=== PATIENT | female | born 1960 | race Caucasian/White ===

== ENCOUNTER 2018-06-12 00:59 | Outpatient (CLI) | payer MEDICAID, SELFPAY ==
--- NOTE | 2018-06-17 08:36 | HOLTER_ITS ---
HOLTER MONITOR DATE OF DICTATION June 17, 2018 at 8:23 a.m. STUDY INDICATION Palpitations. REQUESTING PROVIDER Sherlyn Pyle FINDINGS The patient was monitored for two days and 43 minutes. The baseline rhythm was sinus rhythm. The average heart rate was 78 beats per minute. Range 59 to 109 beats per minute. There was no significant ectopy. 2 PVCs and 6 PACs. There were no ventricular or supraventricular tachycardias. There were no pauses greater than 3 seconds. There was no higher-degree heart block. There were no symptoms reported. FINAL INTERPRETATION Normal study. Berny Gunderson M.D. REINA/ricarda T-06/17/2018
== END 2018-06-12 01:00 ==
PROVIDERS: PCP Nurse Practitioner Family; Visit Provider Nurse Practitioner Family
DX: R00.2 Palpitations (principal); R42 Dizziness and giddiness; I95.1 Orthostatic hypotension; I49.1 Atrial premature depolarization; I49.3 Ventricular premature depolarization
CPT/HCPCS: 93225

== ENCOUNTER 2018-06-15 15:33 | Outpatient (REF) | payer MEDICAID, SELFPAY | END 2018-06-15 15:34 | LOC: RT 15:33 | PROVIDERS: PCP Nurse Practitioner Family; Visit Provider Nurse Practitioner Family | DX: R00.2 Palpitations (principal); R42 Dizziness and giddiness; I95.1 Orthostatic hypotension; I49.1 Atrial premature depolarization; I49.3 Ventricular premature depolarization | CPT/HCPCS: 93226 ==

== ENCOUNTER 2018-06-27 15:45 | Emergency (ER) | payer MEDICAID, SELFPAY ==
[2018-06-27 15:55] VITALS: BP 139/77; PULSE 87; RESP 16; TEMP 37.2; O2SAT 98
--- NOTE | 2018-06-27 16:18 | DI.REPORT_ITS ---
SYMPTOM/DIAGNOSIS: KNEE PAIN RIGHT KNEE: There is a fracture through the medial tibial plateau near the tibial spines. There is slight separation at the articular surface. Additional lucencies in the lateral tibial plateau. There is some depression of the lateral tibial plateau. There is a large lipo hemarthrosis. Distal femur and patella appear intact. IMPRESSION: Fractures of both lateral and medial tibial plateaus with probable involvement of the tibial spines.
--- NOTE | 2018-06-27 16:46 | DI.VRAD_ITS ---
EXAM: XR Right Knee, 3 views CLINICAL HISTORY: 58 years old, female; Pain; Knee; Right; Patient HX: Per pt: Twisted knee and hit against bed TECHNIQUE: Three views of the right knee. COMPARISON: No relevant prior studies available. FINDINGS: Bones/joints: The bones are osteopenic. There are minimal degenerative changes within the tibiofemoral and patellofemoral joints. There is a large knee joint effusion with a lipohemarthrosis. There is an intra-articular fracture of the medial and lateral tibial plateau. The lateral tibial plateau fracture is minimally depressed. No dislocation. Soft tissues: There is swelling of the medial knee soft tissues. IMPRESSION: 1. Nondisplaced fracture of the medial and lateral tibial plateau with minimal depression of the lateral tibial plateau. 2. Large lipomohemarthrosis. Dictated and Authenticated by: Carlos Edgar MD. Ordering:DAVIAN BRAVO MD
--- NOTE | 2018-06-27 17:28 | ED.GENADUL ---
Disposition Clinical Impression: Fracture of right tibial plateau Disposition: HOME Condition: Stable Instructions: Leg Fracture (ED) Additional Instructions: You need to remain nonweightbearing and use crutches at all times. If you begin having significant pain, color change, numbness, or significant swelling he should return immediately to the emergency department for reevaluation. Otherwise call the orthopedist office first thing on Friday for arrangement of follow-up appointment. Prescriptions: OxyCODONE/APAP 5 mg/325 mg [Percocet 5 mg/325 mg] 0 each PO Q6H PRN #8 tab PRN Reason: Pain Referrals: Darnell Chand MD [ [facility] STAFF PHYSICIAN] - 06/29/18 (Call the office on Friday for arrangement of follow-up appointment.) Medical Decision Making - Radiology Data Radiology results: report reviewed, image reviewed - Medical Decision Making Patient presenting to the emergency department for complaint of right knee pain. Patient is exquisitely tender to any palpation of the knee specifically of the tibial plateau. There is significant amount of swelling and effusion also noted to the knee but no severe ecchymosis is appreciated. Concern for fracture versus sprain so radiological imaging was ordered. Pending these results patient ordered diclofenac. After review of imaging showing a nondisplaced tibial plateau fracture did consult with Dr. Chand on-call orthopedist in regards to patient's care and outpatient follow-up. He agreed with recommendation to keep patient nonweightbearing, prescribed pain medication, and have her follow-up on Friday with her office. Patient was placed in a knee immobilizer and crutches and prescribed Percocet. I personally reviewed the [place] drug database on this patient and find no suspicion of opioid abuse. Informed patient of risks versus benefits of narcotic pain control along with non-opiate pain relievers that she may utilize while on prescribed medications. Patient consented to receiving opiate pain meds. After discussion of diagnosis and plan of care with patient patient agreed and stated no further needs, questions, or concerns at this time. History of Present Illness - General Chief complaint: Orthopedic Stated complaint: UNKNOWN Time Seen by Provider: 06/27/18 15:55 Source: patient, RN notes reviewed Mode of arrival: wheelchair Limitations: no limitations - History of Present Illness Initial comments: Patient reports approximately 4 days ago she was walking in her bedroom and excellently struck her knee against the metal bed rail and twisted her right knee. Since then she has been unable to bear weight on the extremity and has had significant amount of pain and discomfort with any movement of the leg. Patient denies any other injury or trauma and states initially the she thought she may have sprained a ligament but due to it not getting better is presenting to the emergency department. Onset/Timin -: days(s) Location: right, lower extremity Severity scale (1-10): 9 Quality: sharp Consistency: constant Improves with: none Worsens with: movement Associated Symptoms: denies other symptoms Treatments Prior to Arrival: NSAID - Related Data Insulin Glargine,Hum.rec.anlog [Lantus Solostar] 30 units SC HS 08/15/16 Insulin Lispro [Humalog] 4 units PO PRN PRN 08/15/16 Gabapentin 1 cap PO BID 06/27/18 OxyCODONE/APAP 5 mg/325 mg [Percocet 5 mg/325 mg] 0 each PO Q6H PRN #8 tab 06/27/18 Allergies Allergy/AdvReac Type Severity Reaction Status Date / Time No Known Allergies Allergy Unverified 06/27/18 15:57 Review of Systems Constitutional: no symptoms reported Cardiovascular: denies: syncope Musculoskeletal: as per HPI Skin: denies: change in color Comment: All other systems reviewed and negative Past Medical History - Past Medical History Medical history: diabetes ANXIETY Surgical history: no surgical history Family history: cancer (MOTHER), diabetes (MOTHER) - Social History Smoking status: current everyday smoker Alcohol use: none Drug use: marijuana Living Situation: lives with family General Exam - General Limitations: no limitations General appearance: alert, other (In obvious discomfort with inability to bear any weight) - Head Head exam: Present: atraumatic, normocephalic - Eye Eye exam: Present: normal apperance - Respiratory Respiratory exam: Absent: respiratory distress - Cardiovascular Cardiovascular Exam: Present: regular rate, normal rhythm - Expanded Lower Extremity Exam Right Upper Leg exam: Absent: tenderness Knee exam: Present: tenderness (Tibial plateau), swelling, effusion, full knee extension. Absent: full ROM (Inability to perform any range of motion or ligamentous testing due to pain and discomfort.), erythema Lower Leg exam: Present: tenderness (With palpation of tibia and radiation to the knee with increasing pain and discomfort in any). Absent: Hannah's sign Ankle exam: Present: normal inspection Foot/Toe exam: Present: normal inspection Neuro vascular tendon exam: Present: no vascular compromise. Absent: pulse deficit, motor deficit, sensory deficit, tendon deficit, extremity cold to touch, abnormal 2-point discrimination Gait: not tested/not observed, unable to bear weight - Neurological Exam Neurological exam: Present: alert, oriented X3. Absent: altered - Skin Skin exam: Present: warm, dry, intact, normal color Course Vital Signs - 24 hr 06/27/18 15:55 Temperature 37.2 C Pulse 87 Respiratory 16 Rate Blood Pressure 139/77 Pulse Oximetry 98
== END 2018-06-27 17:46 | disposition home or self-care (01) ==
PROVIDERS: Emergency Provider Emergency Medicine; PCP Nurse Practitioner Family
DX: S82.124A Nondisplaced fracture of lateral condyle of right tibia, initial encounter for closed fracture (principal); W22.8XXA Striking against or struck by other objects, initial encounter; E11.9 Type 2 diabetes mellitus without complications; Z79.4 Long term (current) use of insulin
CPT/HCPCS: 29505; 73562; 99284; E0114; L1830

== ENCOUNTER 2018-07-02 15:57 | Outpatient (REF) | payer MEDICAID, SELFPAY ==
[2018-07-02 18:38] LABS: Bilirubin Negative (Negative); Blood Trace-intact (Negative); Clarity Cloudy; Glucose Negative (Negative); Ketones Negative (Negative); Leukocyte Esterase Moderate (Negative); Nitrite Negative (Negative); Urobilinogen 0.2 EU/dL (Up TO 0.2); pH 5.5 (5-8)
[2018-07-02 18:45] LABS: WBC >50 HPF (0-5)
[2018-07-02 18:46] LABS: C & S Indicated? Yes
[2018-07-02 18:54] LABS: Iron 28 ug/dL (50-175); Total Iron Binding Capacity 235 ug/dL (250-450); Transferrin Sat 12 % (15-50)
[2018-07-02 19:03] LABS: COMMENT (LAB VIEW ONLY) 86.85 mg/dL; Microalb ug/mg Crea 56.4 ug/mg Cr
[2018-07-02 19:14] LABS: Ferritin 207 ng/mL (8-388); Folate 19.2 ng/mL (8.6-20.0)
[2018-07-02 20:03] LABS: Vitamin B12 345 pg/mL (193-986)
== END 2018-07-02 15:58 ==
LOC: NCHCN 15:57
PROVIDERS: PCP Nurse Practitioner Family; Visit Provider Nurse Practitioner Family
DX: N28.9 Disorder of kidney and ureter, unspecified (principal); R89.9 Unspecified abnormal finding in specimens from other organs, systems and tissues
CPT/HCPCS: 87077; 81003; 81015; 82043; 82570; 82607; 82728; 82746; 83540; 83550; 87086; 87186

== ENCOUNTER 2018-07-08 09:55 | Outpatient (CLI) | payer MEDICAID, SELFPAY ==
--- NOTE | 2018-07-08 09:55 | DI.REPORT_ITS ---
SYMPTOM/DIAGNOSIS: F/U FX RIGHT KNEE: When compared with the 06/27/18 examination, again noted is the fracture of the lateral tibial plateau with minimal depression. There has been no apparent interval change. A joint effusion is decreased in size.
== END 2018-07-08 09:56 ==
PROVIDERS: PCP Nurse Practitioner Family; Visit Provider Orthopaedic Surgery
DX: S82.034A Nondisplaced transverse fracture of right patella, initial encounter for closed fracture (principal)
CPT/HCPCS: 73562

== ENCOUNTER 2018-07-28 08:42 | Outpatient (CLI) | payer MEDICAID, SELFPAY ==
--- NOTE | 2018-07-28 10:25 | DI.RAD_ITS ---
SYMPTOMS/DIAGNOSIS: F/U RT LATERAL TIBIAL PLATEAU FX RIGHT KNEE: When compared with previous images of 06/27/18 there has been no change in the position of the intra-articular fracture of the medial and lateral tibial plateau. A lipohemarthrosis is no longer identified.
== END 2018-07-28 09:02 ==
PROVIDERS: PCP Nurse Practitioner Family; Visit Provider Orthopaedic Surgery
DX: S82.034D Nondisplaced transverse fracture of right patella, subsequent encounter for closed fracture with routine healing (principal)
CPT/HCPCS: 73562

== ENCOUNTER 2018-10-13 15:51 | Outpatient (REF) | payer MEDICAID, SELFPAY ==
[2018-10-13 18:34] LABS: Abs Immature Grans 0.01 k/cumm (0.0-0.09); Absolute Basophil Count 0.03 k/cumm (0.0-0.2); Absolute Eosinophil Count 0.11 k/cumm (0.0-0.7); Absolute Lymphocyte Count 2.27 k/cumm (1.2-3.4); Absolute Monocyte Count 0.43 k/cumm (0.11-0.7); Absolute Neutrophil Count 4.06 k/cumm (1.2-6.7); Basophils % 0.4; Eosinophils % 1.6; HCT 34.2 % (36.0-46.0); HGB 11.3 g/dL (12.0-15.5); Immature Grans % 0.1; Lymphocytes % 32.9; Mean Corpuscular Hemoglobin 30.5 pg (27.0-33.0); Mean Corpuscular Volume 92.2 fL (80-95); Mean Platelet Volume 11.3 fL (8.0-11.0); Monocytes % 6.2; Neutrophils % 58.8; Platelet Count 224 x1000/uL (130-400); RBC 3.71 m/cumm (4.00-5.20); RBC Distribution Width 12.3 % (11.7-14.6); White Blood Cell Count 6.91 k/cumm (4.4-10.8)
[2018-10-13 19:20] LABS: Anion Gap 7.8 mmol/L (3-11); BUN 36 mg/dL (7-18); CO2 29.2 mmol/L (21.0-32.0); CREATININE 1.05 mg/dL (0.55-1.02); Calcium 9.2 mg/dL (8.5-10.1); Chloride 101 mmol/L (98-107); Estimated GFR 53.83 (mL/min/1.73m2); Glucose 266 mg/dL (70-100); Potassium 4.5 mmol/L (3.5-5.1); Sodium 138 mmol/L (136-145)
[2018-10-13 19:48] LABS: COMMENT (LAB VIEW ONLY) < 13.00 mg/dL
== END 2018-10-13 16:11 ==
LOC: NCHCN 15:51
PROVIDERS: PCP Nurse Practitioner Family; Visit Provider Nurse Practitioner Family
DX: I95.1 Orthostatic hypotension (principal); R19.7 Diarrhea, unspecified; K21.9 Gastro-esophageal reflux disease without esophagitis; N28.9 Disorder of kidney and ureter, unspecified; R09.82 Postnasal drip; R89.9 Unspecified abnormal finding in specimens from other organs, systems and tissues
CPT/HCPCS: 80048; 82043; 82570; 85025

== ENCOUNTER 2019-03-03 15:22 | Outpatient (REF) | payer MEDICAID, SELFPAY ==
[2019-03-03 20:59] LABS: BUN 28 mg/dL (7-18); CREATININE 1.33 mg/dL (0.55-1.02); Calcium 9.2 mg/dL (8.5-10.1); Chloride 102 mmol/L (98-107); Estimated GFR 40.98 (mL/min/1.73m2); Glucose 169 mg/dL (70-100); Potassium 4.7 mmol/L (3.5-5.1); Sodium 138 mmol/L (136-145)
== END 2019-03-03 15:42 ==
LOC: NCHCN 15:22
PROVIDERS: PCP Nurse Practitioner Family; Visit Provider Nurse Practitioner Family
DX: N28.9 Disorder of kidney and ureter, unspecified (principal); E23.2 Diabetes insipidus; Z00.00 Encounter for general adult medical examination without abnormal findings
CPT/HCPCS: 80048

== ENCOUNTER 2019-03-20 14:38 | Emergency (ER) | payer MEDICAID, SELFPAY ==
[2019-03-20 14:41] VITALS: BP 123/62; PULSE 85; RESP 20; TEMP 36.8; O2SAT 98
--- NOTE | 2019-03-20 14:59 | W.ED.GENAD ---
Discharge Plan Disposition Patient Disposition: HOME Condition: Good Discharge Details Chief Complaint: RashLesion Clinical Impression: Comedone Primary Care Provider: Sherlyn Pyle ED Provider: Saad Gonzales Home Meds and New Rx's Prescriptions: No Action Humalog U-100 Insulin 100 UNIT/ML cartridge 4 units PO PRN PRNRF: 0 Lantus Solostar U-100 Insulin 100 UNIT/ML insulin pen 30 units Sub-Q HS RF: 0 gabapentin 300 MG capsule 1 cap PO BID RF: 0 Discharge Instructions Instructions: Acne (ED) Additional Instructions: You had a small Comedone, which is like a chronic zit. It has been removed. If you notice any worsening of your symptoms, or any new symptoms such as vomiting, diarrhea, fever, chills, shortness of breath, chest pain, numbness, weakness, or fainting , please return immediately to the emergency department for reevaluation. Please follow up with your primary care provider as soon as possible for reassessment and reevaluation. As always, it was a pleasure participating in your medical care today. Referrals: Sherlyn Pyle [Primary Care Provider] - Medical Decision Making This is a 59-year-old female who presents for evaluation of a tick bite. Thankfully it is not actually a tick but rather a chronic old Comedon. There is no rash or other lesions noted on the skin. The chronic Comedon was fully removed, all ports were examined, no evidence of insect. Patient has no other complaints. Will be discharged home. I have extensively reviewed the treatment plan and discharge instructions with the patient. I have addressed all patient concerns at this time. The patient was made aware of what symptoms to monitor for that would warrant a return to the emergency department. Discussed the plan with the patient, they demonstrate verbal understanding and agreement with our assessment and plan at this time. HPI General Date/Time Provider Initiated Documentation: 03/20/19 14:43. HPI Narrative: This is a pleasant 59-year-old female who presents today for evaluation of a lesion on her right flank. She states that she noticed a small bump there yesterday and a friend looked at it was concerned it might be a tick. She has come in for further evaluation. She denies any redness fever chills or recent tick bites otherwise. No other complaints at this time. No other modifying factors. Related Data Home Medications Medication Instructions Recorded Confirmed Humalog U-100 Insulin 4 units PO PRN PRN 08/15/16 03/20/19 Lantus Solostar U-100 Insulin 30 units SUB-Q HS 08/15/16 03/20/19 gabapentin 1 cap PO BID 06/27/18 03/20/19 Allergies Allergy/AdvReac Type Severity Reaction Status Date / Time No Known Allergies Allergy Unverified 03/20/19 14:43 General Stated Complaint: RashLesion VENICE: 4 Review of Systems Review of Systems All systems reviewed & are unremarkable except as noted in HPI and below PFSH Social History Smoking/Tobacco Use Status: Never Alcohol Intake: never Drug use: Daily Substance use type: marijuana Do you feel safe at home: Yes Do you feel safe in your relationship?: Yes Exam Narrative Exam Narrative: 1.Const: Well-nourished, Well-developed, appearing stated age 2.Eyes: PERRL, no conjunctival injection, and symmetrical lids. 3.ENT: Atraumatic external nose and ears. Moist MM. Neck: Symmetric, trachea midline, No thyromegaly. 4.CVS: +S1/S2, No murmurs or gallops. Peripheral pulses 2+ and equal in all extremities. Brisk capillary refill in all extremities. 5.RESP: Unlabored respiratory effort. Clear to auscultation bilaterally. No wheezes rales or rhonchi 6.GI: Soft, Nontender/Nondistended, No hepatosplenomegaly. No guarding or rebound. 7.MSK: Normocephalic/Atraumatic, Extremities w/o deformity or ttp No cyanosis or clubbing, Normal movement of all extremities 8.Skin: Warm, Dry. Patient demonstrates an old chronic Comedon on the skin on the right flank which is a lesion where she felt a small bump. No evidence of tick or arthropod bite. No evidence of rash. 9.Neuro: bacteriology professor II-XII grossly intact. Sensation grossly intact, no focal neurologic deficits. 10.Psych: (AAO) x3. Appropriate mood and affect Course Vital Signs Temperature 36.8 C 03/20/19 14:41 Pulse 85 03/20/19 14:41 Respiratory Rate 20 03/20/19 14:41 Blood Pressure 123/62 03/20/19 14:41 Pulse Oximetry 98 03/20/19 14:41 Temperature 36.8 C 03/20/19 14:41 Temperature Source Temporal Artery Scan 03/20/19 14:41 Pulse 85 03/20/19 14:41 Respiratory Rate 20 03/20/19 14:41 Respiratory Effort Non-Labored 03/20/19 14:41 Blood Pressure 123/62 03/20/19 14:41 Blood Pressure Position Sitting 03/20/19 14:41 Pulse Oximetry 98 03/20/19 14:41 Oxygen Delivery Method Room Air 03/20/19 14:41 Oxygen Flow Rate 0 03/20/19 14:41 Pain Level 4 03/20/19 14:41
== END 2019-03-20 15:02 | disposition home or self-care (01) ==
LOC: ER 15:01
PROVIDERS: Emergency Provider Student in an Organized Health Care Education/Training Program; PCP Nurse Practitioner Family
DX: L70.0 Acne vulgaris (principal); E11.9 Type 2 diabetes mellitus without complications; Z79.4 Long term (current) use of insulin
CPT/HCPCS: 99282

== ENCOUNTER 2019-11-06 17:47 | Inpatient (IN) | payer MEDICAID, SELFPAY ==
[2019-11-06] VITALS (8 sets, daily range): BP systolic 97–150; BP diastolic 62–73; PULSE 73–85; RESP 16–17; TEMP 37.1; O2SAT 98–100
[2019-11-06 19:20] LABS: Lactate 1.1 mmol/L (0.6-1.4)
[2019-11-06 19:22] LABS: Abs Immature Grans 0.02 k/cumm (0.0-0.09); Absolute Basophil Count 0.02 k/cumm (0.0-0.2); Absolute Eosinophil Count 0.06 k/cumm (0.0-0.7); Absolute Lymphocyte Count 2.23 k/cumm (1.2-3.4); Absolute Monocyte Count 0.91 k/cumm (0.11-0.7); Absolute Neutrophil Count 6.36 k/cumm (1.2-6.7); Basophils % 0.2; Eosinophils % 0.6; HCT 32.7 % (36.0-46.0); Immature Grans % 0.2; Lymphocytes % 23.2; Mean Corp. HGB Concentration 33.6 g/dL (32.0-36.0); Mean Corpuscular Hemoglobin 30.2 pg (27.0-33.0); Mean Corpuscular Volume 89.8 fL (80-95); Mean Platelet Volume 10.4 fL (8.0-11.0); Monocytes % 9.5; Neutrophils % 66.3; Platelet Count 276 x1000/uL (130-400); RBC 3.64 m/cumm (4.00-5.20); RBC Distribution Width 11.8 % (11.7-14.6)
[2019-11-06 19:50] LABS: ALT 14 U/L (14-59); AST 14 U/L (15-37); Albumin 3.3 g/dL (3.4-5.0); Alkaline Phosphatase 110 U/L (46-116); Anion Gap 9.1 mmol/L (3-11); BUN 34 mg/dL (7-18); Bilirubin, Total 1.1 mg/dL (0.2-1.0); CO2 28.9 mmol/L (21.0-32.0); Calcium 8.7 mg/dL (8.5-10.1); Chloride 98 mmol/L (98-107); Estimated GFR 35.54 (mL/min/1.73m2); Glucose 287 mg/dL (74-106); Potassium 4.3 mmol/L (3.5-5.1); Sodium 136 mmol/L (136-145); Total Protein 7.1 g/dL (6.4-8.2)
--- NOTE | 2019-11-06 19:58 | DI.RAD_ITS ---
EXAM: XR TOE RT GREAT INDICATION: r/o osteomyelitis, red, hot foot, ulcer COMPARISON: No exams were available for comparison TECHNIQUE: 2D digital imaging was performed. FINDINGS: No acute fracture or dislocation is seen. No radiographic findings are seen to suggest osteomyelitis . Degenerative changes are seen at the 1st metatarsophalangeal joint. IMPRESSION: No radiographic evidence to suggest osteomyelitis. If there is continued concern, a bone scan or MRI may be performed for further evaluation.
--- NOTE | 2019-11-06 20:10 | ED.GENADUL_ITS ---
Discharge Plan Discharge Details Chief Complaint: Cellulitis Admit Date/Time: 11/06/19 20:18 Admit Provider: Dionte Lomeli Attending Provider: Dionte Lomeli Primary Care Provider: Sherlyn Pyle ED Provider: Marii Moser Discharge Data Discharge Date/Time-TO BE ENTERED AT DEPARTURE: 11/06/19 21:15 Medical Decision Making This is a 59-year-old patient presenting to the emergency room as a diabetic for concern of right leg infection. Patient recently was wearing ill fitting boots and developed what seems like a large blister on the medial aspect of the right great toe and small blisters noted to the second and third toes. Patient attempted to debride this wound at home and has a large area of tissue loss on the medial aspect of the toe extending no deeper than the dermis. There is a good blood supply to the tissue that is present and no obvious necrosis. There is associated cellulitis throughout the dorsal aspect of the foot diffusely extending up the pretibial henson. No significant posterior leg involvement. There is a foul odor draining from the great toe. Culture was obtained. I did speak with podiatry Dr. Hidalgo regarding patient's wound. I recommended patient be admitted to the hospital for aggressive IV antibiotics. X-ray was obtained. No obvious osteomyelitis noted on x-ray at this time. Patient agrees with plan of care of admission to the. Labs are reassuring at this time. Spoke with the hospitalist who will plan to admit this patient for further evaluation and management of cellulitic infection and consult to podiatry. HPI General Date/Time Provider Initiated Documentation: 11/06/19 18:32 . HPI Narrative: Is a 59-year-old diabetic patient presenting to the emergency room for complaints of right foot pain, swelling, redness and concern of infection. Patient presents with a large wound to the great toe along the medial aspect of the great toe which appears to be a large blister which is previously debrided. Patient does report they attempted to debride this wound at home. Patient has a notable erythema to the dorsal foot extending toward the knee. Patient reports malaise, feeling chills and mild nausea. Patient reports blood sugars have been high in the last 3 days. Patient does admit to wearing a pair of boots that were very narrow in the foot and are likely the reason for mechanical irritation to the foot. Of note patient does have mild blistering to the second and third toes which is likely related. Patient has never seen podiatry for her feet. Denies any other concerns or complaints at time. Patient does admit to a foul odor. Related Data Home Medications Medication Instructions Recorded Confirmed Humalog U-100 Insulin 4 units PO PRN PRN 08/15/16 11/06/19 Lantus Solostar U-100 Insulin 30 units SUB-Q HS 08/15/16 11/06/19 gabapentin 1 cap PO BID 06/27/18 11/06/19 Allergies Allergy/AdvReac Type Severity Reaction Status Date / Time No Known Allergies Allergy Unverified 11/06/19 17:57 General Stated Complaint: Cellulitis VENICE: 3 Review of Systems All systems reviewed & are unremarkable except as noted in HPI and below Constitutional Constitutional: Reports chills, Denies fever(s) and Reports malaise ENT Ears, Nose, Mouth, and Throat: Denies neck pain Musculoskeletal Musculoskeletal: Denies abnormal gait, Denies back pain, Denies neck pain, Denies numbness and Denies radiating pain into limb Integumentary/Breasts Skin/Breast: Reports erythema, Reports skin swelling and Reports wounds Neurologic Neurologic: Denies abnormal gait and Denies numbness [facility] Medical History Anemia (Chronic) CKD (chronic kidney disease) (Acute) [facility]CI current use of insulin (Chronic) Neuropathic diabetic ulcer of foot (Acute) Type II diabetes mellitus with complication, uncontrolled (Chronic) Social History Smoking/Tobacco Use Status: Never Alcohol Intake: never Drug use: Daily Substance use type: marijuana Do you feel safe at home: Yes Do you feel safe in your relationship?: Yes Exam Narrative Exam Narrative: CONST: Healthy appearing patient, in no acute distress. Well hydrated. Alert and alert. NECK: Normal visual inspection. FROM. No lymphadenopathy. Trachea midline. No Midline tenderness. CHEST: Normal insepection of the chest. RESP: Normal respiratory effort. Speaking full sentences. No cough. No wheezing. No retractions. Clear to auscaltation. Breath sound equal and present bilaterally. CARDIO: No JVD. Normal PMI. Regular Rate. Regular Rhythm. Normal peripheral pulses. MUSCULOSKELETAL: Normal Gait. FROM of all extremities. Distal neurovascularly intact. Sensation intact distally. SKIN: Normal. Dry. No rashes. Patient with right great toe with a large partially debrided blister with some loose skin noted over the distal tuft of the great toe. There is a large area approximately 5 cm x 1-1/2 cm where there is tissue loss extending to the dermis. No extension into the subcutaneous. The base of this wound does appear to have a good blood supply. There is no associated necrosis. There is surrounding cellulitis extending all the way through the dorsal aspect of the foot into the pretibial henson extending toward the knee. There is no associated lymphangitis. Mild pain with palpation of the great toe. Full range of motion of the toes. Of note there is early blistering noted of the second and third digits distally but significantly smaller wounds. NEURO: Alert and awake. Speech clear. PSYCH: Normal affect. Cooperative. Course Vital Signs Vital signs: Vital Signs Temperature 37.1 C 11/06/19 17:52 Pulse 85 11/06/19 17:52 Respiratory Rate 16 11/06/19 17:52 Blood Pressure 150/73 H 11/06/19 17:52 Pulse Oximetry 99 11/06/19 17:52 Temperature 37.1 C 11/06/19 17:52 Temperature Source Temporal Artery Scan 11/06/19 17:52 Pulse 85 11/06/19 17:52 Respiratory Rate 16 11/06/19 17:52 Respiratory Effort 11/06/19 18:00 Blood Pressure 150/73 H 11/06/19 17:52 Pulse Oximetry 99 11/06/19 17:52 Oxygen Delivery Method Room Air 11/06/19 17:52 Oxygen Flow Rate 0 11/06/19 17:52 Pain Level 9 11/06/19 17:52 Lab/Test Results Lab/Test Results: 11/06/19 19:25 Blood Blood Culture - Pending 11/06/19 19:18 Foot - Right Wound Culture - Pending 11/06/19 19:18 Foot - Right Gram Stain - Pending 11/06/19 18:30 Blood Blood Culture - Pending Laboratory Tests Range/Units 11/06/19 11/06/19 11/06/19 18:30 18:30 18:30 WBC (4.4-10.8) k/cumm 9.60 RBC (4.00-5.20) m/cumm 3.64 L Hgb (12.0-15.5) g/dL 11.0 L Hct (36.0-46.0) % 32.7 L MCV (80-95) fL 89.8 MCH (27.0-33.0) pg 30.2 MCHC (32.0-36.0) g/dL 33.6 RDW (11.7-14.6) % 11.8 Plt Count (130-400) x1000/uL 276 MPV (8.0-11.0) fL 10.4 Immature Gran % 0.2 Neutrophils % 66.3 Lymphocytes % 23.2 Monocytes % 9.5 Eosinophils % 0.6 Basophils % 0.2 Absolute Neutrophils (1.2-6.7) k/cumm 6.36 Absolute Lymphocytes (1.2-3.4) k/cumm 2.23 Absolute Monocytes (0.11-0.7) k/cumm 0.91 H Absolute Eosinophils (0.0-0.7) k/cumm 0.06 Absolute Basophils (0.0-0.2) k/cumm 0.02 Sodium (136-145) mmol/L 136 Potassium (3.5-5.1) mmol/L 4.3 Chloride (98-107) mmol/L 98 Carbon Dioxide (21.0-32.0) mmol/L 28.9 Anion Gap (3-11) mmol/L 9.1 BUN (7-18) mg/dL 34 H Creatinine (0.55-1.02) mg/dL 1.50 H Estimated GFR/1.73 m2 (mL/min/1.73m2) 35.54 Glucose (74-106) mg/dL 287 H Lactate (0.6-1.4) mmol/L 1.1 Calcium (8.5-10.1) mg/dL 8.7 Total Bilirubin (0.2-1.0) mg/dL 1.1 H AST (15-37) U/L 14 L ALT (14-59) U/L 14 Alkaline Phosphatase (46-116) U/L 110 Total Protein (6.4-8.2) g/dL 7.1 Albumin (3.4-5.0) g/dL 3.3 L
[2019-11-06 20:20] LABS: Bilirubin Negative (Negative); Blood Trace-lysed (Negative); Clarity Cloudy (Clear); Glucose 250 mg/dL (Negative); Ketones Negative (Negative); Leukocyte Esterase Large (Negative); Nitrite Negative (Negative); Specific Gravity <= 1.005 (1.005-1.025); Urobilinogen 0.2 EU/dL (Up TO 0.2); pH 5.5 (5-8)
[2019-11-06 20:32] LABS: Bacteria Many HPF (Negative); C & S Indicated? Yes; WBC >50 HPF (0-5)
--- NOTE | 2019-11-06 20:32 | W.PM.HP.N ---
Date of service: 11/06/19 Time of Service: 20:32 Assessment and Plan Assessment and plan (1) Cellulitis and abscess of foot: Start date: 11/06/19 Status: Acute Assessment and plan: This is a 59-year-old lady who has long-term diabetes and neuralgia though no significant loss of sensation by exam over her lower extremities. She presented to the ED with a red and hot foot and after debriding and also over her right large toe at home after soaking it in Epsom salt. She then bluntly debrided the ulcer's loose flap of skin. She has a resulting right foot cellulitis and was placed on Zosyn with partial response by the time I examined the patient. She is to see podiatry in the morning in consultation. We will place her on a sliding scale of short-acting insulin for diabetes control while in the hospital. She states that she is very sensitive to short acting insulin and we need to adjust the dosing. (2) Neuropathic diabetic ulcer of foot: Start date: 11/06/19 Status: Acute Assessment and plan: The patient's fine touch sensation appears to be intact over her feet but she had ulcers over her right toes secondary to new footwear. There may be an element of decreased awareness of friction on her skin or decreased pain with the patient on gabapentin for neuropathy and neuralgia of her lower extremities. She is a poorly controlled diabetic. (3) Type II diabetes mellitus with complication, uncontrolled: Status: Chronic Assessment and plan: Patient was over 200 pounds in the past and presently is only on a basal and short acting insulin daily as she has frequent hypoglycemic reactions to the short acting insulin. She splits the dose of the sliding scale taking half with a meal and then the second half of the insulin dose if needed by glucometer checking after meals. This will be done while she is hospitalized holding her basal insulin for now. Long-term she may want to discuss alternative therapy to her diabetes with poorly controlled diabetes and a high hemoglobin A1c but problems with hypoglycemia. She may be a candidate for restarting metformin and a GLP-1 agonist with less insulin treatment. She has lost significant weight by dieting in the recent past. History of Present Illness History of Present Illness Chief Complaint: Ulcer over right large toe with red and hot foot Narrative: This is a 59-year-old female patient has a history of diabetes but has [id number] diabetes when she was younger and weighed over 200 pounds. She has lost weight in the last years and is on insulin with Lantus as a basal and and cautious Humalog injections per sliding scale because of sensitivity and hypoglycemia. She is on Neurontin for burning in sensation over her feet and states that she has good sensation though she recently had new slippers and had blisters over her right large toe more than smaller toes with a large flap of skin over her large toe pitting after soaking her foot in Epsom salt. She appeared to have no discomfort with this. She reported to the ED because of her right foot being red, swollen and hot to the touch with the associated right large toe ulcer turning black. She had no fever or elevated white blood cell count appeared to have elevated renal functions with some anemia. This appears chronic by review of her records with 2016 hemoglobin being 10.8 g/dL. She was slightly hypomagnesemic but is on no supplements or diuretics. She is a vague historian. She had no recent other complaints with review of systems and history. She did not mention having previous problems with ulcers of her feet or circulatory problems. She did have an elevated blood pressure in the ED but this did not persist when she was admitted to [facility]. I entertain starting on lisinopril but discontinued this with her blood pressure not elevated. She did have a slightly low magnesium and I will start oral magnesium with IV magnesium not given in the ED. Review of Systems Narrative: 13 point review of systems otherwise unrevealing or stable. Patient has lost weight over the last years by dieting being over 200 pounds previously. 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) Neuropathic diabetic ulcer of foot (Acute) Type II diabetes mellitus with complication, uncontrolled (Chronic) Social History Smoking/Tobacco Use Status: Never Alcohol Intake: never Drug use: Daily Substance use type: marijuana Do you feel safe at home: Yes Do you feel safe in your relationship?: Yes Meds Home Medications and Allergies Home Medications Medication Instructions Recorded Confirmed Type Humalog U-100 Insulin 4 units PO PRN PRN 08/15/16 11/06/19 History Lantus Solostar U-100 Insulin 30 units SUB-Q HS 08/15/16 11/06/19 History gabapentin 1 cap PO BID 06/27/18 11/06/19 History Allergies Allergy/AdvReac Type Severity Reaction Status Date / Time No Known Allergies Allergy Unverified 11/06/19 17:57 Exam Narrative Exam Narrative: General: Patient appears appropriate for age, in no acute distress and alert and oriented x3. She is a vague historian. Slightly flattened affect but good eye contact. HEENT: Normocephalic, face with slightly coarsened features but no edema. Eyes with pupils equal and reactive to light symmetrically, extraocular movement intact and sclera anicteric. Oropharynx with moist oral mucosa and fair dentition. External ears normal. Neck: Supple without JVD. Back: Stooped posture with no CVA tenderness. Lungs: Fair aeration and clear to auscultation percussion. No focalizing rales or rhonchi with bronchovesicular breath sounds diffusely. Heart: Regular rate and rhythm with no murmurs gallops appreciated. Breast: Exam deferred. Abdomen: Scaphoid contour, soft and nontender to palpation with no palpable hepatosplenomegaly. Bowel sounds positive all quadrants. Genitalia/rectal: Exam deferred. Extremities: Peripheral pulses intact with no clubbing or cyanosis. Right foot is edematous with erythema decreased by report but the ED on IV Zosyn. Warm to touch over the foot. Bullae are over the dorsal aspect of the middle toes with a large, black eschar over the medial aspect of the large toe without drainage. All joints appear to have fair range of motion without swelling. Neuro: Monofilament testing intact both feet, no focalizing motor deficits and cranial nerves II through XII grossly intact. Fine touch diffusely appears to be intact though the patient is on Neurontin what sounds like mostly more neuralgia. By history she appears to have decreased sensation over Her feet with her blisters on the right foot after wearing new slippers. Skin: Warm, moist with diffuse actinic changes but no rashes noted. Bullae and ulcer over the right foot as described. Left foot has no lesions. Psych: Flattened affect and monotonous slow speech but normal eye contact. Remote and recent memory appear to be intact motivation is vague with history. No abnormal thought processes. Results Imaging Imaging Studies: Exam(s) PROCEDURE INFORMATION: Exam: XR Right Toe(s) Exam date and time: 11/06/2019 8:02 PM Age: 59 years old Clinical indication: Condition or disease; Other: Right toe ulcer; Additional info: R/O osteomyelitis TECHNIQUE: Imaging protocol: XR Right toes. Views: Minimum 2 views. COMPARISON: No relevant prior studies available. FINDINGS: Bones/joints: No fracture or subluxation. Degenerative changes of the 1st metatarsophalangeal joint. No destructive bone changes Soft tissues: Heterogeneously diminished density in soft tissues medially about 1st distal phalanx. No subcutaneous gas. IMPRESSION: 1. No radiographic findings for osteomyelitis. Bone scan or MRI could be performed for further evaluation. 2. Soft tissue ulcer about 1st distal phalanx. 3. Degenerative changes. Dictated and Authenticated by: Mario Alberto Franco MD. Labs Result diagrams: 11/07/19 06:20 11/06/19 18:30 Labs: Laboratory Results - last 24 hr 11/06/19 11/06/19 11/06/19 18:30 18:30 18:30 WBC 9.60 RBC 3.64 L Hgb 11.0 L Hct 32.7 L MCV 89.8 MCH 30.2 MCHC 33.6 RDW 11.8 Plt Count 276 MPV 10.4 Immature Gran % 0.2 Neutrophils % 66.3 Lymphocytes % 23.2 Monocytes % 9.5 Eosinophils % 0.6 Basophils % 0.2 Absolute Neutrophils 6.36 Absolute Lymphocytes 2.23 Absolute Monocytes 0.91 H Absolute Eosinophils 0.06 Absolute Basophils 0.02 Sodium 136 Potassium 4.3 Chloride 98 Carbon Dioxide 28.9 Anion Gap 9.1 BUN 34 H Creatinine 1.50 H Estimated GFR/1.73 m2 35.54 Glucose 287 H Lactate 1.1 Calcium 8.7 Total Bilirubin 1.1 H AST 14 L ALT 14 Alkaline Phosphatase 110 Total Protein 7.1 Albumin 3.3 L Urine Color Urine Clarity Urine pH Ur Specific [place] Urine Protein Urine Ketones Urine Blood Urine Nitrite Urine Bilirubin Urine Urobilinogen Ur Leukocyte Esterase Urine Glucose 11/06/19 20:15 WBC RBC Hgb Hct MCV MCH MCHC RDW Plt Count MPV Immature Gran % Neutrophils % Lymphocytes % Monocytes % Eosinophils % Basophils % Absolute Neutrophils Absolute Lymphocytes Absolute Monocytes Absolute Eosinophils Absolute Basophils Sodium Potassium Chloride Carbon Dioxide Anion Gap BUN Creatinine Estimated GFR/1.73 m2 Glucose Lactate Calcium Total Bilirubin AST ALT Alkaline Phosphatase Total Protein Albumin Urine Color Yellow Urine Clarity Cloudy Urine pH 5.5 Ur Specific [place] <= 1.005 Urine Protein Negative Urine Ketones Negative Urine Blood Trace-lysed H Urine Nitrite Negative Urine Bilirubin Negative Urine Urobilinogen 0.2 Ur Leukocyte Esterase Large H Urine Glucose 250 H Last Vital Signs Temp 37.1 C 11/06/19 17:52 Pulse 85 11/06/19 17:52 Resp 16 11/06/19 17:52 BP 150/73 H 11/06/19 17:52 Pulse Ox 99 11/06/19 17:52
[2019-11-06 20:37] LABS: Magnesium 1.6 mg/dL (1.8-2.4)
[2019-11-06] MEDS: PIPERACILLIN/TAZO 3.375 GM in Normal Saline 50 ML IVPB (20:47)
[2019-11-06] MEDS: Heparin 5,000 UNITS/ML VIAL 5000 UNITS SC (21:52)
[2019-11-06] MEDS: Acetaminophen 325 MG TAB PO (21:52)
[2019-11-06] MEDS: Normal Saline 1,000 ML 125 ML IV (21:52)
[2019-11-06] MEDS: Insulin Aspart 300 UNITS/3 ML PEN SC (22:35)
[2019-11-07] MEDS: PIPERACILLIN/TAZO 3.375 GM in Normal Saline 50 ML IVPB ×3 (01:55→13:55)
[2019-11-07 03:42] VITALS: BP 110/68; PULSE 69; RESP 16; TEMP 37; O2SAT 98
[2019-11-07] MEDS: Heparin 5,000 UNITS/ML VIAL 5000 UNITS SC ×3 (05:23→22:04)
[2019-11-07] MEDS: Normal Saline 1,000 ML 125 ML IV ×2 (05:26→18:18)
[2019-11-07] MEDS: Normal Saline Flush 10 ML SYR IVP ×2 (06:31→13:55)
[2019-11-07 06:54] LABS: HCT 31.3 % (36.0-46.0); HGB 10.3 g/dL (12.0-15.5); Mean Corp. HGB Concentration 32.9 g/dL (32.0-36.0); Mean Corpuscular Hemoglobin 29.9 pg (27.0-33.0); Platelet Count 273 x1000/uL (130-400); RBC 3.44 m/cumm (4.00-5.20); RBC Distribution Width 11.8 % (11.7-14.6); White Blood Cell Count 6.58 k/cumm (4.4-10.8)
[2019-11-07 07:04] LABS: ALT 12 U/L (14-59); AST 15 U/L (15-37); Albumin 2.9 g/dL (3.4-5.0); Alkaline Phosphatase 99 U/L (46-116); Anion Gap 8.6 mmol/L (3-11); BUN 30 mg/dL (7-18); Bilirubin, Total 1.1 mg/dL (0.2-1.0); CO2 29.4 mmol/L (21.0-32.0); CREATININE 1.48 mg/dL (0.55-1.02); Calcium 8.5 mg/dL (8.5-10.1); Chloride 105 mmol/L (98-107); Glucose 160 mg/dL (74-106); Potassium 4.5 mmol/L (3.5-5.1); Sodium 143 mmol/L (136-145); Total Protein 6.5 g/dL (6.4-8.2)
[2019-11-07 07:18] VITALS: BP 124/76; PULSE 75; RESP 16; TEMP 37; O2SAT 100
[2019-11-07] MEDS: Gabapentin 300 MG CAP PO ×2 (07:41→19:49)
[2019-11-07] MEDS: Magnesium Oxide 400 MG TAB PO (07:41)
[2019-11-07] MEDS: Insulin Aspart 300 UNITS/3 ML PEN SC ×3 (08:23→17:20)
--- NOTE | 2019-11-07 09:36 | PHARADMIT ---
Addendum entered by Deirdre Fuentes 11/08/19 17:28: Pharmacy Note Subjective Dr. Hidalgo debrided yesterday, would be back to look at today per morning report Objective BP-148/77 other VS okay SCr-1.11(down) BG-269 Assessment insulin glargine dose increased from 15 to 20 mg QHS zosyn continues (day 3 starts this evening) wound culture growing group B strep; urine culture growing gram negative rods Plan continue to watch VS, labs and for med changes... watch for narrowing of abx therapy Original Note: Admission Pharmacy Clinical Review CELLULITIS right toe extending to knee Code Status Full Code Current Weight 52 kg Renally Cleared and Narrow Therapeutic Index Meds CrCl~30.8ml/min (Zosyn) QTc Value / Action Taken BP Control, Fever BP 124/76 Afebrile No pain Electrolytes reviewed K+ 4.5 Mag 1.6 (Magox 400mg daily, Mag 4gm IV x1)) DVT Prophylaxis Heparin SQ Opiate Usage / Scheduled Bowel Regimen Ordered Plt/SCr for Heparin / Enoxaparin Plt 273 SCr 1.48 INR for Warfarin H/H stable, WBC/Bands H/H 10.3/31.3 WBC 6.58 Antibiotic appropriateness Zosyn 3.375 IV q6h...renal adjustment to 2.25 recommended for CrCl<40ml/min Cultures and Sensitivities Urine Gram neg jennifer >100K Right foot Gram positive-heavy growth Surgical ABX d/c within 24 hr DM control / Insulin Dosing BG 160 Novolog scale Heart Failure (Check EF%) (BERNARD's, B-Block, Diuretics) IV to PO Switch Home Meds Reviewed Home Meds Not Ordered Lantus not ordered at this time Comments Creactive protein 7.87 consult: Hx CKD, anemia, type-2 diabetic w/neuropathy
--- NOTE | 2019-11-07 09:48 | PDOC.CMIN ---
- If Service Date Differs Date of service: 11/07/19 Time of Service: 09:48 Care Management Initial Assess REASON FOR HOSPITALIZATION:: Cellulitis PAST MEDICAL HISTORY/PAST SURGICAL HISTORY:: Medical History. Anemia (Chronic). CKD (chronic kidney disease) (Acute). senior living current use of insulin (Chronic). Neuropathic diabetic ulcer of foot (Acute). Type II diabetes mellitus with complication, uncontrolled (Chronic) PREVIOUS FUNCTIONAL STATUS/SOCIAL/FAMILY SUPPORTS:: Joann lives in [place], [place] with her , Danilo. She has four children and eleven grandchildren who are all local and supportive. 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 She is independent at baseline. CURRENT FUNCTIONAL STATUS:: Joann was sitting up in her chair when CM met with her. She was pleasant and stated that she had many visitors today. She reported that she met with Dr. Alvarez who recommended IV abx, but she does not know how long the course of abx will be. CM will continue to follow. ADVANCE DIRECTIVES:: On file, Danilo De Los Santos listed as agent. Has patient been provided with information about the portal?: No Did the patient sign up for the portal?: No CODE STATUS:: Full Code INSURANCE COVERAGE / FINANCIAL ISSUES:: DON CURRENT HOME/COMMUNITY SERVICES/EQUIPMENT:: Joann currently does not have any equipment or services in the community. PRIMARY CARE PHYSICIAN:: Sherlyn Pyle POTENTIAL DISCHARGE NEEDS:: Evaluation for further needs, follow up appointments PATIENT/FAMILY EDUCATION NEEDS:: Review discharge instructions regarding activity levels and medication, discussion of self care needs including Ask Me Three ANTICIPATED BARRIERS TO DISCHARGE:: None identified at this time. TRANSPORTATION:: Joann's Danilo will drive her via private vehicle when ready. PLAN:: Anticipate Joann will return home with no additional services once medically cleared. Her will drive her home when ready. She will follow up with her PCP, as recommended. CM will continue to follow.
--- NOTE | 2019-11-07 10:17 | PGE_ITS ---
Documented by User: Alicia Bloom NP 11/07/19 10:34 Date of Service Date of service: 11/07/19 Time of Service: 10:17 Assessment and Plan Assessment and plan (1) Cellulitis and abscess of foot: Start date: 11/07/19 Start time: 10:23 Status: Acute Assessment and plan: erythema with edema to right great toe. Bulla over tip. Dr. Hidalgo to see patient. Zosyn day 1. Check CRP Continue to monitor. (2) Neuropathic diabetic ulcer of foot: Start date: 11/07/19 Start time: 10:25 Status: Acute Assessment and plan: Poorly controlled diabetic. Sensation intact. Neuralgia likely, on gabapentin. Continue home regimen. Monitor glucose closely. SSI- sensitive. Episode of hypoglycemia this am. 60 increased to 140 with glucose tabs. (3) Type II diabetes mellitus with complication, uncontrolled: Start date: 11/07/19 Start time: 10:29 Status: Chronic Assessment and plan: Significant wt loss from 200 lbs. Monitor glucose closely. SSI only while in the hospital (4) CKD (chronic kidney disease): Start date: 11/07/19 Start time: 10:32 Status: Acute Assessment and plan: Elevated BUN and Creatinine, baseline for patient. continue to monitor. (5) Anemia: Start date: 11/07/19 Start time: 10:33 Status: Chronic Assessment and plan: Anemia studies done in the past. Unremarkable, however iron level not seen. Iron level ordered. Not currently on iron will add if low. Subjective Subjective Patient reports: no new complaints Interval history since last seen: No pain to right great toe. Toe is surrounded with erythema to joint. tip is black with slothing skin. Dr. Hidalgo to see patient. Second toe to right foot with small eraser size blister and third toe with pinpoint blister. monitor feet for worsening condition. Am glucose was 60, brought up with glucose and food to 140. Monitor fingersticks and glucose closely. Exam Narrative Exam Narrative: General: Patient appears appropriate for age, in no acute distress and alert and oriented x3. She is a vague historian. Slightly flattened affect but good eye contact. HEENT: Normocephalic,. Eyes with pupils equal and reactive to light symmetrically, extraocular movement intact and sclera anicteric. Oropharynx with moist oral mucosa and fair dentition. External ears normal. Neck: Supple without JVD. Back: Stooped posture with no CVA tenderness. Lungs: Fair aeration and clear to auscultation percussion. No focalizing rales or rhonchi with bronchovesicular breath sounds diffusely. Heart: Regular rate and rhythm with no murmurs gallops appreciated. Abdomen: Scaphoid contour, soft and nontender to palpation with no palpable hepatosplenomegaly. Bowel sounds positive all quadrants. Extremities: Peripheral pulses intact with no clubbing or cyanosis. Right foot is edematous with erythema. Warm to touch over the foot. Bullae are over the dorsal aspect of the middle toes with a large, black eschar over the medial aspect of the large toe without drainage. All joints appear to have fair range of motion without swelling. Neuro: Monofilament testing intact both feet, no focalizing motor deficits and cranial nerves II through XII grossly intact. Fine touch diffusely appears to be intact, appears to have decreased sensation over. Skin: Warm, moist with diffuse actinic changes but no rashes noted. Bullae and ulcer over the right foot as described. Left foot has no lesions. Psych: Flattened affect and monotonous slow speech but normal eye contact. Remote and recent memory appear to be intact motivation is vague with history. No abnormal thought processes. Objective Objective Clinical Data: Abnormal lab results 11/06/19 11/06/19 11/06/19 Range/Units 18:30 18:30 18:30 RBC 3.64 L (4.00-5.20) m/cumm Hgb 11.0 L (12.0-15.5) g/dL Hct 32.7 L (36.0-46.0) % Absolute Monocytes 0.91 H (0.11-0.7) k/cumm BUN 34 H (7-18) mg/dL Creatinine 1.50 H (0.55-1.02) mg/dL Glucose 287 H (74-106) mg/dL Magnesium 1.6 L (1.8-2.4) mg/dL Total Bilirubin 1.1 H (0.2-1.0) mg/dL AST 14 L (15-37) U/L ALT (14-59) U/L Albumin 3.3 L (3.4-5.0) g/dL Urine Blood (Negative) Ur Leukocyte Esterase (Negative) Urine WBC (0-5) HPF Urine Glucose (Negative) mg/dL 11/06/19 11/07/19 11/07/19 Range/Units 20:15 06:20 06:20 RBC 3.44 L (4.00-5.20) m/cumm Hgb 10.3 L (12.0-15.5) g/dL Hct 31.3 L (36.0-46.0) % Absolute Monocytes (0.11-0.7) k/cumm BUN 30 H (7-18) mg/dL Creatinine 1.48 H (0.55-1.02) mg/dL Glucose 160 H D (74-106) mg/dL Magnesium (1.8-2.4) mg/dL Total Bilirubin 1.1 H (0.2-1.0) mg/dL AST (15-37) U/L ALT 12 L (14-59) U/L Albumin 2.9 L (3.4-5.0) g/dL Urine Blood Trace-lysed H (Negative) Ur Leukocyte Esterase Large H (Negative) Urine WBC >50 H (0-5) HPF Urine Glucose 250 H (Negative) mg/dL Vital Signs Temperature 37.0 C 11/07/19 07:18 Temperature Source Tympanic 11/07/19 07:18 Pulse 75 11/07/19 07:18 Pulse Rhythm Regular 11/07/19 07:35 Respiratory Rate 16 11/07/19 07:18 Respiratory Effort Non-Labored 11/07/19 07:35 Respiratory Depth Normal 11/07/19 07:35 Respiratory Pattern Normal 11/07/19 07:35 Blood Pressure 124/76 11/07/19 07:18 Blood Pressure Mean 78 11/06/19 20:30 Pulse Oximetry 100 11/07/19 07:18 Oxygen Delivery Method Room Air 11/07/19 07:18 Oxygen Flow Rate 0 11/07/19 07:18 Pain Level 0 11/07/19 07:18 Intake & Output 11/06/19 11/06/19 11/07/19 11:59 23:59 11:59 Intake Total 50 / 50 1405.833 / 1405.833 Output Total 300 / 300 Balance 50 / 50 1105.833 / 1105.833 Weight 49.5 kg 52 kg Intake: IV 50 / 50 1045.833 / 1045.833 Oral 360 / 360 Output: Urine 300 / 300 Other: Urine Color Yellow Urine Appearance Clear Urine Odor Normal Comment Mixed with diarrhea more than 300, but paper was in commode. Stool Size Moderate Stool Characteristics Liquid Voiding Methods Bedside Commode Bedside Commode Laboratory Results WBC 6.58 k/cumm (4.4-10.8) D 11/07/19 06:20 RBC 3.44 m/cumm (4.00-5.20) L 11/07/19 06:20 Hgb 10.3 g/dL (12.0-15.5) L 11/07/19 06:20 Hct 31.3 % (36.0-46.0) L 11/07/19 06:20 MCV 91.0 fL (80-95) 11/07/19 06:20 MCH 29.9 pg (27.0-33.0) 11/07/19 06:20 MCHC 32.9 g/dL (32.0-36.0) 11/07/19 06:20 RDW 11.8 % (11.7-14.6) 11/07/19 06:20 Plt Count 273 x1000/uL (130-400) 11/07/19 06:20 MPV 10.0 fL (8.0-11.0) 11/07/19 06:20 Immature Gran % 0.2 11/06/19 18:30 Neutrophils % 66.3 11/06/19 18:30 Lymphocytes % 23.2 11/06/19 18:30 Monocytes % 9.5 11/06/19 18:30 Eosinophils % 0.6 11/06/19 18:30 Basophils % 0.2 11/06/19 18:30 Absolute Neutrophils 6.36 k/cumm (1.2-6.7) 11/06/19 18:30 Absolute Lymphocytes 2.23 k/cumm (1.2-3.4) 11/06/19 18:30 Absolute Monocytes 0.91 k/cumm (0.11-0.7) H 11/06/19 18:30 Absolute Eosinophils 0.06 k/cumm (0.0-0.7) 11/06/19 18:30 Absolute Basophils 0.02 k/cumm (0.0-0.2) 11/06/19 18:30 Sodium 143 mmol/L (136-145) 11/07/19 06:20 Potassium 4.5 mmol/L (3.5-5.1) 11/07/19 06:20 Chloride 105 mmol/L (98-107) 11/07/19 06:20 Carbon Dioxide 29.4 mmol/L (21.0-32.0) 11/07/19 06:20 Anion Gap 8.6 mmol/L (3-11) 11/07/19 06:20 BUN 30 mg/dL (7-18) H 11/07/19 06:20 Creatinine 1.48 mg/dL (0.55-1.02) H 11/07/19 06:20 Estimated GFR/1.73 m2 36.10 (mL/min/1.73m2) 11/07/19 06:20 Glucose 160 mg/dL (74-106) H D 11/07/19 06:20 Lactate 1.1 mmol/L (0.6-1.4) 11/06/19 18:30 Calcium 8.5 mg/dL (8.5-10.1) 11/07/19 06:20 Magnesium 1.6 mg/dL (1.8-2.4) L 11/06/19 18:30 Total Bilirubin 1.1 mg/dL (0.2-1.0) H 11/07/19 06:20 AST 15 U/L (15-37) 11/07/19 06:20 ALT 12 U/L (14-59) L 11/07/19 06:20 Alkaline Phosphatase 99 U/L (46-116) 11/07/19 06:20 Total Protein 6.5 g/dL (6.4-8.2) 11/07/19 06:20 Albumin 2.9 g/dL (3.4-5.0) L 11/07/19 06:20 Urine Color Yellow (Yellow) 11/06/19 20:15 Urine Clarity Cloudy (Clear) 11/06/19 20:15 Urine pH 5.5 (5-8) 11/06/19 20:15 Ur Specific [place] <= 1.005 (1.005-1.025) 11/06/19 20:15 Urine Protein Negative mg/dL (Negative) 11/06/19 20:15 Urine Ketones Negative mg/dL (Negative) 11/06/19 20:15 Urine Blood Trace-lysed (Negative) H 11/06/19 20:15 Urine Nitrite Negative (Negative) 11/06/19 20:15 Urine Bilirubin Negative (Negative) 11/06/19 20:15 Urine Urobilinogen 0.2 EU/dL (Up TO 0.2) 11/06/19 20:15 Ur Leukocyte Esterase Large (Negative) H 11/06/19 20:15 Urine RBC Not Applicable 11/06/19 20:15 Urine WBC >50 HPF (0-5) H 11/06/19 20:15 Ur Epithelial Cells Not Applicable 11/06/19 20:15 Urine Crystals Not Applicable 11/06/19 20:15 Urine Bacteria Many HPF (Negative) 11/06/19 20:15 Urine Mucus Not Applicable 11/06/19 20:15 Ur Culture Indicated? Yes 11/06/19 20:15 Urine Glucose 250 mg/dL (Negative) H 11/06/19 20:15 Documented by User: Brendon Prince MD 11/08/19 19:21
[2019-11-07 10:25] LABS: C-Reactive Protein 7.84 mg/dL (0.0-0.3); Magnesium 1.6 mg/dL (1.8-2.4)
--- NOTE | 2019-11-07 10:27 | W.PODCONSULT ---
Date of service: 11/07/19 Time of Service: 10:27 Assessment and Plan Assessment and plan (1) Neuropathic diabetic ulcer of foot: Start date: 11/07/19 Start time: 10:46 Status: Acute Assessment and plan: She will need to remain in house for IV antibiotics and wound care. She is currently on Zosyn IV q6h and antibiotics will be adjusted pending microbiology results. History of Present Illness History of Present Illness Chief Complaint: Thermal injury right great toe in a neuropathic diabetic Narrative: 59-year-old female seen at bedside, admitted yesterday through the ER for a wound affecting the right great toe with cellulitis extending to the knee for bedrest, IV antibiotics and wound care. She is resting comfortably. She has no complaints of pain. She indicates that several days ago she had a little irritation along the tip and medial surface of the right great toe which she scrubbed at without improvement. She indicates that the toe got much worse in appearance with increased redness and streaking up her leg and she went to the emergency room. She denies any trauma to the region but is very vague as to cold injury and shoe gear utilization. Review of Systems Narrative: I reviewed her admitting history and physical and acknowledge chronic kidney disease, anemia, type 2 diabetes with peripheral neuropathy and poor control. 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 Capillary fill time is under 4 seconds to all toes with the exception of the right great toe where an eschar is appreciated. Cellulitic activity is appreciated coming from the medial and dorsal aspect of the right great toe extending to the ankle region. The patient indicates this is markedly improved from yesterday. No skin markings are available for comparison. Dermatologic exam: Onychauxis is appreciated with a high degree of incurvation noted on all toenails especially the hallux nails bilaterally. The right great toe has a necrotic tip with fluid retention under the skin extending under the nail plate which is distally lysed, with a region of eschar/gangrene along the medial aspect of the hallux from the IPJ to the tip of the digit from the nailbed (medial nail fold) to the plantar medial edge of the toe. This tissue is hard, no purulence was appreciated under this necrotic tissue. At the tip of digits 2 and 3 of the right foot reveal small shallow flaccid blisters consistent with thermal injury. These appear to be superficial without complication and I would expect to resolve without difficulty. Muscle groups of 5 out of 5 bilaterally. Normal muscle mass and bulk was appreciated. Skeletal exam appeared grossly benign. No joint inflammations or gross deformities were observed. Neurologically, toes were downgoing. Neuropathy is appreciated considered moderate from the midfoot to the tip of the toes plantarly. Microbiology reveals gram-positive cocci is obtained from the wound in the ER. Sensitivities pending. Radiographs obtained in the ER failed to show any destructive bony changes of the right great toe, no gas was noted within the soft tissues. CRP is pending. Labs were otherwise reviewed. Impressions: Thermal injury to the right first second and third toe in a neuropathic diabetic with poor control Plan: I am recommending bedside debridement of the right great toe to remove necrotic tissue. Due to the patient's neuropathy I did not feel that I needed to anesthetize the foot to accomplish this. All questions were answered she is agreeable to this. Procedure note: With a #10 scalpel and a pickup, I removed partial thickness tissue from the tip of the toe extending medially dorsally and medially plantarly around the necrotic tissue releasing some's foul-smelling serous fluid. The nail plate was distally lysed and I was concerned that there was infection developing under that so with a curved hemostat the soft tissue was released from the proximal nail and the nail avulsed from the nail bed. Scant bleeding was encountered. The nailbed appeared viable as did the proximal nail fold. Lateral tissue of the great toe also appears viable. Further debridement was performed along the medial aspect of the toe and this tissue is injured, the depth of injury I suspect will be full-thickness but we will give it time to further demarcate before doing any further debridement. Soft tissue wound care will be ordered consisting of washing of the foot twice daily with soap and water rinsing well, patting dry. We will use Anasept gel over the necrotic tissue with a gauze dressing. every 12 hours. Results Last Vital Signs Temp 37.0 C 11/07/19 07:18 Pulse 75 11/07/19 07:18 Resp 16 11/07/19 07:18 BP 124/76 11/07/19 07:18 Pulse Ox 100 11/07/19 07:18 Labs Result diagrams: 11/07/19 06:20 11/07/19 06:20 Labs: Laboratory Results - last 24 hr 11/06/19 11/06/19 11/06/19 18:30 18:30 18:30 WBC 9.60 RBC 3.64 L Hgb 11.0 L Hct 32.7 L MCV 89.8 MCH 30.2 MCHC 33.6 RDW 11.8 Plt Count 276 MPV 10.4 Immature Gran % 0.2 Neutrophils % 66.3 Lymphocytes % 23.2 Monocytes % 9.5 Eosinophils % 0.6 Basophils % 0.2 Absolute Neutrophils 6.36 Absolute Lymphocytes 2.23 Absolute Monocytes 0.91 H Absolute Eosinophils 0.06 Absolute Basophils 0.02 Sodium 136 Potassium 4.3 Chloride 98 Carbon Dioxide 28.9 Anion Gap 9.1 BUN 34 H Creatinine 1.50 H Estimated GFR/1.73 m2 35.54 Glucose 287 H Lactate 1.1 Calcium 8.7 Magnesium Total Bilirubin 1.1 H AST 14 L ALT 14 Alkaline Phosphatase 110 Total Protein 7.1 Albumin 3.3 L Urine Color Urine Clarity Urine pH Ur Specific [place] Urine Protein Urine Ketones Urine Blood Urine Nitrite Urine Bilirubin Urine Urobilinogen Ur Leukocyte Esterase Urine RBC Urine WBC Ur Epithelial Cells Urine Crystals Urine Bacteria Urine Mucus Ur Culture Indicated? Urine Glucose 11/06/19 11/06/19 11/07/19 18:30 20:15 06:20 WBC RBC Hgb Hct MCV MCH MCHC RDW Plt Count MPV Immature Gran % Neutrophils % Lymphocytes % Monocytes % Eosinophils % Basophils % Absolute Neutrophils Absolute Lymphocytes Absolute Monocytes Absolute Eosinophils Absolute Basophils Sodium 143 Potassium 4.5 Chloride 105 Carbon Dioxide 29.4 Anion Gap 8.6 BUN 30 H Creatinine 1.48 H Estimated GFR/1.73 m2 36.10 Glucose 160 H D Lactate Calcium 8.5 Magnesium 1.6 L Total Bilirubin 1.1 H AST 15 ALT 12 L Alkaline Phosphatase 99 Total Protein 6.5 Albumin 2.9 L Urine Color Yellow Urine Clarity Cloudy Urine pH 5.5 Ur Specific [place] <= 1.005 Urine Protein Negative Urine Ketones Negative Urine Blood Trace-lysed H Urine Nitrite Negative Urine Bilirubin Negative Urine Urobilinogen 0.2 Ur Leukocyte Esterase Large H Urine RBC Not Applicable Urine WBC >50 H Ur Epithelial Cells Not Applicable Urine Crystals Not Applicable Urine Bacteria Many Urine Mucus Not Applicable Ur Culture Indicated? Yes Urine Glucose 250 H 11/07/19 06:20 WBC 6.58 D RBC 3.44 L Hgb 10.3 L Hct 31.3 L MCV 91.0 MCH 29.9 MCHC 32.9 RDW 11.8 Plt Count 273 MPV 10.0 Immature Gran % Neutrophils % Lymphocytes % Monocytes % Eosinophils % Basophils % Absolute Neutrophils Absolute Lymphocytes Absolute Monocytes Absolute Eosinophils Absolute Basophils Sodium Potassium Chloride Carbon Dioxide Anion Gap BUN Creatinine Estimated GFR/1.73 m2 Glucose Lactate Calcium Magnesium Total Bilirubin AST ALT Alkaline Phosphatase Total Protein Albumin Urine Color Urine Clarity Urine pH Ur Specific [place] Urine Protein Urine Ketones Urine Blood Urine Nitrite Urine Bilirubin Urine Urobilinogen Ur Leukocyte Esterase Urine RBC Urine WBC Ur Epithelial Cells Urine Crystals Urine Bacteria Urine Mucus Ur Culture Indicated? Urine Glucose
[2019-11-07 10:53] LABS: Iron 16 ug/dL (50-170)
[2019-11-07 11:34] VITALS: BP 155/80; PULSE 82; RESP 18; TEMP 36.8; O2SAT 97
[2019-11-07] MEDS: MAGNESIUM SULFATE 4 GM/100 ML BAG IVPB (11:56)
[2019-11-07 14:12] VITALS: BP 151/87; PULSE 82
[2019-11-07 15:00] VITALS: BP 135/78; PULSE 79; RESP 16; TEMP 36.8; O2SAT 98
[2019-11-07 19:10] VITALS: BP 119/74; PULSE 82; RESP 16; TEMP 37.2; O2SAT 97
[2019-11-07] MEDS: PIPERACILLIN/TAZO 2.25 GM in Normal Saline 50 ML IVPB (19:47)
[2019-11-07] MEDS: Acetaminophen 325 MG TAB PO (22:09)
[2019-11-08] VITALS (7 sets, daily range): BP systolic 115–157; BP diastolic 68–88; PULSE 73–86; RESP 16–19; TEMP 36.7–37.1; O2SAT 97–99
[2019-11-08] MEDS: Normal Saline 1,000 ML 125 ML IV ×2 (01:56→10:14)
[2019-11-08] MEDS: PIPERACILLIN/TAZO 2.25 GM in Normal Saline 50 ML IVPB ×4 (01:56→19:57)
[2019-11-08] MEDS: Heparin 5,000 UNITS/ML VIAL 5000 UNITS SC ×3 (06:03→21:37)
[2019-11-08 07:22] LABS: Abs Immature Grans 0.01 k/cumm (0.0-0.09); Absolute Basophil Count 0.02 k/cumm (0.0-0.2); Absolute Eosinophil Count 0.08 k/cumm (0.0-0.7); Absolute Lymphocyte Count 1.87 k/cumm (1.2-3.4); Absolute Monocyte Count 0.64 k/cumm (0.11-0.7); Basophils % 0.3; Eosinophils % 1.1; HCT 31.9 % (36.0-46.0); HGB 10.6 g/dL (12.0-15.5); Immature Grans % 0.1; Lymphocytes % 25.5; Mean Corp. HGB Concentration 33.2 g/dL (32.0-36.0); Mean Corpuscular Hemoglobin 30.1 pg (27.0-33.0); Mean Corpuscular Volume 90.6 fL (80-95); Mean Platelet Volume 9.9 fL (8.0-11.0); Monocytes % 8.7; Neutrophils % 64.3; Platelet Count 260 x1000/uL (130-400); RBC 3.52 m/cumm (4.00-5.20); RBC Distribution Width 11.7 % (11.7-14.6); White Blood Cell Count 7.32 k/cumm (4.4-10.8)
[2019-11-08 07:45] LABS: Anion Gap 9.1 mmol/L (3-11); BUN 21 mg/dL (7-18); C-Reactive Protein 6.25 mg/dL (0.0-0.3); CO2 28.9 mmol/L (21.0-32.0); CREATININE 1.11 mg/dL (0.55-1.02); Calcium 8.5 mg/dL (8.5-10.1); Chloride 103 mmol/L (98-107); Estimated GFR 50.31 (mL/min/1.73m2); Glucose 269 mg/dL (74-106); Potassium 4.8 mmol/L (3.5-5.1); Sodium 141 mmol/L (136-145)
[2019-11-08] MEDS: Insulin Aspart 300 UNITS/3 ML PEN SC ×3 (08:52→17:07)
[2019-11-08] MEDS: Magnesium Oxide 400 MG TAB PO (08:52)
[2019-11-08] MEDS: Gabapentin 300 MG CAP PO ×2 (08:52→19:55)
[2019-11-08] MEDS: Acetaminophen 325 MG TAB PO (10:10)
--- NOTE | 2019-11-08 10:11 | CMPROGNOTE_ITS ---
- If Service Date Differs Date of service: 11/08/19 Time of Service: 10:11 Care Management Progress Note S/O: Joann is lying in bed watching television when CM comes to meet with her. She is pleasant and easily engages in conversation. She reports she is looking forward to returning home soon. 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 CM will continue to follow. A: Joann is a 59 year old female admitted to [facility] on 11/06/2019 for cellul itis. P: Joann will be discharged home when medically cleared by provider. Anticipate no new services needed at time of discharge. She will be transported home via private vehicle by family. CM will continue to follow.
--- NOTE | 2019-11-08 14:06 | CHAPLAIN ---
Joann was sitting up in her bed when I visited. I explained my role and offered support. Joann said several vising friends and relatives had just left, and that she had plenty of company today.
--- NOTE | 2019-11-08 14:52 | W.INDIABCONS ---
Date of service: 11/08/19 Time of Service: 14:53 Diabetes Inpatient Consult DESCRIPTION/ASSESSMENT: Appreciate diabetes consult for Joann De Los Santos who is hospitalized with foot ulcer. She states her last blood sugar was around 8. eGFR 36 BMI 22 States she has had diabetes since her 30s and has been on insulin a long time. She states her weight has been halved since diagnosis to the point where she admits to being somewhat anorexic. BLood sugars here 68-276 receiving only sensitive insulin correction. At home she receives 15u Glargine recently reduced from 30 when she was waking up most mornings with hypoglycemia. She takes Novolog based on food and blood sugar. States blood sugar usually 145-160 since decreasing insulin. She appears well informed regarding diabetes self management with insulin although she has had some large changes in insulin dosing. INTERVENTION: Joann needs basal insulin at this point. Will follow blood sugars to see if mealtime insulin is also suggested. Will assess carbohydrate intake with addition of basal insulin. PLAN: Add Gargine at 15 units initially. Will follow blood sugars Time Spent in Nutritional Counseling and Treatment: 10 minutes face to face
--- NOTE | 2019-11-08 17:46 | PGE_ITS ---
Date of Service Date of service: 11/08/19 Time of Service: 17:47 Subjective Subjective Patient reports: no new complaints Interval history since last seen: Joann is seen in her room. She is sitting up in her chair. She denies any pain in her feet. She is eating her dinner. Exam Narrative Exam Narrative: Vitals are stable at 148/77 pulse 73 respiration 18 O2 sat room air is 98% temperature 37.1. Labs are reviewed. WBCs remain normalized at 7.32. RBCs 3.52, hemoglobin 10.6, hematocrit 31.9, BUNs 21, creatinine is 1.11, blood glucose this morning was 269, CRP 6.25 Microbiology reports group B streptococcus from the wound right great toe, which remains universally susceptible to oxacillin. Physical exam: Dressings are removed from the right great toe. The cellulitis has resolved . There is some erythema from the tip of the toe to the base of the great toe without extension onto the foot. The [place] which encompasses the medial wall of the right great toe from the tip of the toe all the way down to the interphalangeal joint is showing some softening around the margins and there is a little bit of flexibility within this tissue indicative of some viable deep tissue. She has good capillary return on the plantar aspect of the great toe and along the lateral wall. The distal tips of the right second and third toes are viable with the blister formation drying nicely without signs of infection or further complication. Impressions: Partial-thickness necrotic diabetic wound right great toe, growing strep B Plan: I am going to discontinue the antisept gel and switch her over to collagenase Santyl once daily under a gauze dressing. Spoke with the [employer] hospitalist and suggested that we transition Joann to p.o. Keflex in the near future. From a podiatry perspective, she can be treated as an outpatient when she is clinically stable with her other comorbidities. She should continue to ambulate in the surgical shoe to prevent further irritation of the injured tissue. She may shower as long as she washes the great toe after showering with soap and water and reapplies her Santyl collagenase gauze dressings. I will be happy to see her in the office next week as an outpatient. Objective Objective Clinical Data: Abnormal lab results 11/08/19 11/08/19 Range/Units 06:55 06:55 RBC 3.52 L (4.00-5.20) m/cumm Hgb 10.6 L (12.0-15.5) g/dL Hct 31.9 L (36.0-46.0) % BUN 21 H D (7-18) mg/dL Creatinine 1.11 H (0.55-1.02) mg/dL Glucose 269 H D (74-106) mg/dL C-Reactive Protein 6.25 H (0.0-0.3) mg/dL Vital Signs Temperature 37.1 C 11/08/19 15:44 Temperature Source Tympanic 11/08/19 15:44 Pulse 73 11/08/19 15:44 Pulse Rhythm Regular 11/08/19 16:46 Pulse 82 11/07/19 14:12 Respiratory Rate 18 11/08/19 15:44 Respiratory Effort Non-Labored 11/08/19 16:46 Respiratory Depth Normal 11/08/19 16:46 Respiratory Pattern Normal 11/08/19 16:46 Blood Pressure 148/77 H 11/08/19 15:44 Blood Pressure Mean 78 11/06/19 20:30 Pulse Oximetry 98 11/08/19 15:44 Oxygen Delivery Method Room Air 11/08/19 15:44 Oxygen Flow Rate 0 11/08/19 15:44 Pain Level 0 11/08/19 15:44 Intake & Output 11/07/19 11/08/19 11/08/19 18:59 06:59 18:59 Intake Total 1590 / 3244.167 1654.167 / 3244.167 1650 / 1650 Output Total 300 / 1100 800 / 1100 1400 / 1400 Balance 1290 / 2144.167 854.167 / 2144.167 250 / 250 Weight 53.1 kg Intake: IV 1100 / 2154.167 1054.167 / 2154.167 1050 / 1050 Oral 490 / 1090 600 / 1090 600 / 600 Output: Urine 300 / 1100 800 / 1100 1400 / 1400 Other: Urine Color Yellow Yellow Yellow Urine Appearance Clear Cloudy Clear Urine Odor Normal Normal Comment more than 300, but paper was in commode. multiple voids Voiding Methods Toilet Bedside Commode Toilet Laboratory Results WBC 7.32 k/cumm (4.4-10.8) 11/08/19 06:55 RBC 3.52 m/cumm (4.00-5.20) L 11/08/19 06:55 Hgb 10.6 g/dL (12.0-15.5) L 11/08/19 06:55 Hct 31.9 % (36.0-46.0) L 11/08/19 06:55 MCV 90.6 fL (80-95) 11/08/19 06:55 MCH 30.1 pg (27.0-33.0) 11/08/19 06:55 MCHC 33.2 g/dL (32.0-36.0) 11/08/19 06:55 RDW 11.7 % (11.7-14.6) 11/08/19 06:55 Plt Count 260 x1000/uL (130-400) 11/08/19 06:55 MPV 9.9 fL (8.0-11.0) 11/08/19 06:55 Immature Gran % 0.1 11/08/19 06:55 Neutrophils % 64.3 11/08/19 06:55 Lymphocytes % 25.5 11/08/19 06:55 Monocytes % 8.7 11/08/19 06:55 Eosinophils % 1.1 11/08/19 06:55 Basophils % 0.3 11/08/19 06:55 Absolute Neutrophils 4.70 k/cumm (1.2-6.7) 11/08/19 06:55 Absolute Lymphocytes 1.87 k/cumm (1.2-3.4) 11/08/19 06:55 Absolute Monocytes 0.64 k/cumm (0.11-0.7) 11/08/19 06:55 Absolute Eosinophils 0.08 k/cumm (0.0-0.7) 11/08/19 06:55 Absolute Basophils 0.02 k/cumm (0.0-0.2) 11/08/19 06:55 Sodium 141 mmol/L (136-145) 11/08/19 06:55 Potassium 4.8 mmol/L (3.5-5.1) 11/08/19 06:55 Chloride 103 mmol/L (98-107) 11/08/19 06:55 Carbon Dioxide 28.9 mmol/L (21.0-32.0) 11/08/19 06:55 Anion Gap 9.1 mmol/L (3-11) 11/08/19 06:55 BUN 21 mg/dL (7-18) H D 11/08/19 06:55 Creatinine 1.11 mg/dL (0.55-1.02) H 11/08/19 06:55 Estimated GFR/1.73 m2 50.31 (mL/min/1.73m2) 11/08/19 06:55 Glucose 269 mg/dL (74-106) H D 11/08/19 06:55 Lactate 1.1 mmol/L (0.6-1.4) 11/06/19 18:30 Calcium 8.5 mg/dL (8.5-10.1) 11/08/19 06:55 Magnesium 2.0 mg/dL (1.8-2.4) 11/08/19 06:55 Iron 16 ug/dL (50-170) L 11/07/19 06:20 Total Bilirubin 1.1 mg/dL (0.2-1.0) H 11/07/19 06:20 AST 15 U/L (15-37) 11/07/19 06:20 ALT 12 U/L (14-59) L 11/07/19 06:20 Alkaline Phosphatase 99 U/L (46-116) 11/07/19 06:20 C-Reactive Protein 6.25 mg/dL (0.0-0.3) H 11/08/19 06:55 Total Protein 6.5 g/dL (6.4-8.2) 11/07/19 06:20 Albumin 2.9 g/dL (3.4-5.0) L 11/07/19 06:20 Urine Color Yellow (Yellow) 11/06/19 20:15 Urine Clarity Cloudy (Clear) 11/06/19 20:15 Urine pH 5.5 (5-8) 11/06/19 20:15 Ur Specific [place] <= 1.005 (1.005-1.025) 11/06/19 20:15 Urine Protein Negative mg/dL (Negative) 11/06/19 20:15 Urine Ketones Negative mg/dL (Negative) 11/06/19 20:15 Urine Blood Trace-lysed (Negative) H 11/06/19 20:15 Urine Nitrite Negative (Negative) 11/06/19 20:15 Urine Bilirubin Negative (Negative) 11/06/19 20:15 Urine Urobilinogen 0.2 EU/dL (Up TO 0.2) 11/06/19 20:15 Ur Leukocyte Esterase Large (Negative) H 11/06/19 20:15 Urine RBC Not Applicable 11/06/19 20:15 Urine WBC >50 HPF (0-5) H 11/06/19 20:15 Ur Epithelial Cells Not Applicable 11/06/19 20:15 Urine Crystals Not Applicable 11/06/19 20:15 Urine Bacteria Many HPF (Negative) 11/06/19 20:15 Urine Mucus Not Applicable 11/06/19 20:15 Ur Culture Indicated? Yes 11/06/19 20:15 Urine Glucose 250 mg/dL (Negative) H 11/06/19 20:15
--- NOTE | 2019-11-08 19:15 | PGE_ITS ---
Date of Service Date of service: 11/08/19 Time of Service: 19:16 Assessment and Plan Assessment and plan (1) Neuropathic diabetic ulcer of foot: Status: Acute Assessment and plan: She has what appears to be a thermal injury to the right first toe. This is dried up and healed nicely. Is not causing her any pain. Will finish up the IV Zosyn and transition to p.o. antibiotics for discharge tomorrow. Dr. Hidalgo has switch her over to Santyl to be applied to the wound. He will see her on an outpatient basis. Plan is for p.o. Keflex. (2) Type II diabetes mellitus with complication, uncontrolled: Status: Chronic Assessment and plan: Poorly controlled diabetes. Restarted Lantus at 20 units at at bedtime. Continue her other medications. She needs more intensive therapy for her diabetes. (3) Anemia: Status: Chronic Assessment and plan: Hemoglobin is stable at 10.6. No sign of active bleeding. This may be related to diabetic nephropathy. Subjective Subjective Interval history since last seen: She overall feels fine. She did get some nausea when her blood sugars were high. She is having no pain in the right foot. No fever or chills. Dr. Hidalgo was in to check her foot this afternoon. Exam Narrative Exam Narrative: On exam she is in good spirits. Her close friends were with her. I took down the dressing on her right first toe. There is a large area of eschar somewhat ovoid in shape, 2 x 3.5 cm. There is minimal surrounding erythema, no drainage or discharge. She has a very slightest of darkened tissue on the tips of the second third and fourth toes. The remaining tissues on the foot all seem to be intact. There is very little remaining cellulitis. Objective Objective Clinical Data: Abnormal lab results 11/08/19 11/08/19 Range/Units 06:55 06:55 RBC 3.52 L (4.00-5.20) m/cumm Hgb 10.6 L (12.0-15.5) g/dL Hct 31.9 L (36.0-46.0) % BUN 21 H D (7-18) mg/dL Creatinine 1.11 H (0.55-1.02) mg/dL Glucose 269 H D (74-106) mg/dL C-Reactive Protein 6.25 H (0.0-0.3) mg/dL Vital Signs Temperature 37.1 C 11/08/19 15:44 Temperature Source Tympanic 11/08/19 15:44 Pulse 73 11/08/19 15:44 Pulse Rhythm Regular 11/08/19 16:46 Pulse 82 11/07/19 14:12 Respiratory Rate 18 11/08/19 15:44 Respiratory Effort Non-Labored 11/08/19 16:46 Respiratory Depth Normal 11/08/19 16:46 Respiratory Pattern Normal 11/08/19 16:46 Blood Pressure 148/77 H 11/08/19 15:44 Blood Pressure Mean 78 11/06/19 20:30 Pulse Oximetry 98 11/08/19 15:44 Oxygen Delivery Method Room Air 11/08/19 15:44 Oxygen Flow Rate 0 11/08/19 15:44 Pain Level 0 11/08/19 15:44 Intake & Output 11/07/19 11/08/19 11/08/19 23:59 11:59 23:59 Intake Total 1950 / 3595.833 2174.167 / 2704.167 530 / 2704.167 Output Total 800 / 2200 1400 / 2200 Balance 1950 / 3295.833 1374.167 / 504.167 -870 / 504.167 Weight 53.1 kg Intake: IV 1100 / 2145.833 2054.167 / 2104.167 50 / 2104.167 Oral 850 / 1450 120 / 600 480 / 600 Output: Urine 800 / 2200 1400 / 2200 Other: Urine Color Yellow Yellow Yellow Urine Appearance Clear Cloudy Clear Urine Odor Normal Normal Comment multiple voids Voiding Methods Toilet Bedside Commode Toilet Laboratory Results WBC 7.32 k/cumm (4.4-10.8) 11/08/19 06:55 RBC 3.52 m/cumm (4.00-5.20) L 11/08/19 06:55 Hgb 10.6 g/dL (12.0-15.5) L 11/08/19 06:55 Hct 31.9 % (36.0-46.0) L 11/08/19 06:55 MCV 90.6 fL (80-95) 11/08/19 06:55 MCH 30.1 pg (27.0-33.0) 11/08/19 06:55 MCHC 33.2 g/dL (32.0-36.0) 11/08/19 06:55 RDW 11.7 % (11.7-14.6) 11/08/19 06:55 Plt Count 260 x1000/uL (130-400) 11/08/19 06:55 MPV 9.9 fL (8.0-11.0) 11/08/19 06:55 Immature Gran % 0.1 11/08/19 06:55 Neutrophils % 64.3 11/08/19 06:55 Lymphocytes % 25.5 11/08/19 06:55 Monocytes % 8.7 11/08/19 06:55 Eosinophils % 1.1 11/08/19 06:55 Basophils % 0.3 11/08/19 06:55 Absolute Neutrophils 4.70 k/cumm (1.2-6.7) 11/08/19 06:55 Absolute Lymphocytes 1.87 k/cumm (1.2-3.4) 11/08/19 06:55 Absolute Monocytes 0.64 k/cumm (0.11-0.7) 11/08/19 06:55 Absolute Eosinophils 0.08 k/cumm (0.0-0.7) 11/08/19 06:55 Absolute Basophils 0.02 k/cumm (0.0-0.2) 11/08/19 06:55 Sodium 141 mmol/L (136-145) 11/08/19 06:55 Potassium 4.8 mmol/L (3.5-5.1) 11/08/19 06:55 Chloride 103 mmol/L (98-107) 11/08/19 06:55 Carbon Dioxide 28.9 mmol/L (21.0-32.0) 11/08/19 06:55 Anion Gap 9.1 mmol/L (3-11) 11/08/19 06:55 BUN 21 mg/dL (7-18) H D 11/08/19 06:55 Creatinine 1.11 mg/dL (0.55-1.02) H 11/08/19 06:55 Estimated GFR/1.73 m2 50.31 (mL/min/1.73m2) 11/08/19 06:55 Glucose 269 mg/dL (74-106) H D 11/08/19 06:55 Lactate 1.1 mmol/L (0.6-1.4) 11/06/19 18:30 Calcium 8.5 mg/dL (8.5-10.1) 11/08/19 06:55 Magnesium 2.0 mg/dL (1.8-2.4) 11/08/19 06:55 Iron 16 ug/dL (50-170) L 11/07/19 06:20 Total Bilirubin 1.1 mg/dL (0.2-1.0) H 11/07/19 06:20 AST 15 U/L (15-37) 11/07/19 06:20 ALT 12 U/L (14-59) L 11/07/19 06:20 Alkaline Phosphatase 99 U/L (46-116) 11/07/19 06:20 C-Reactive Protein 6.25 mg/dL (0.0-0.3) H 11/08/19 06:55 Total Protein 6.5 g/dL (6.4-8.2) 11/07/19 06:20 Albumin 2.9 g/dL (3.4-5.0) L 11/07/19 06:20 Urine Color Yellow (Yellow) 11/06/19 20:15 Urine Clarity Cloudy (Clear) 11/06/19 20:15 Urine pH 5.5 (5-8) 11/06/19 20:15 Ur Specific [place] <= 1.005 (1.005-1.025) 11/06/19 20:15 Urine Protein Negative mg/dL (Negative) 11/06/19 20:15 Urine Ketones Negative mg/dL (Negative) 11/06/19 20:15 Urine Blood Trace-lysed (Negative) H 11/06/19 20:15 Urine Nitrite Negative (Negative) 11/06/19 20:15 Urine Bilirubin Negative (Negative) 11/06/19 20:15 Urine Urobilinogen 0.2 EU/dL (Up TO 0.2) 11/06/19 20:15 Ur Leukocyte Esterase Large (Negative) H 11/06/19 20:15 Urine RBC Not Applicable 11/06/19 20:15 Urine WBC >50 HPF (0-5) H 11/06/19 20:15 Ur Epithelial Cells Not Applicable 11/06/19 20:15 Urine Crystals Not Applicable 11/06/19 20:15 Urine Bacteria Many HPF (Negative) 11/06/19 20:15 Urine Mucus Not Applicable 11/06/19 20:15 Ur Culture Indicated? Yes 11/06/19 20:15 Urine Glucose 250 mg/dL (Negative) H 11/06/19 20:15
[2019-11-08] MEDS: Normal Saline Flush 10 ML SYR IVP (19:56)
[2019-11-08] MEDS: Insulin Glargine 300 UNITS/3 ML PEN 20 UNITS SC (21:38)
[2019-11-09] MEDS: PIPERACILLIN/TAZO 2.25 GM in Normal Saline 50 ML IVPB ×2 (01:49→08:36)
[2019-11-09] MEDS: Normal Saline Flush 10 ML SYR IVP ×2 (01:49→08:36)
[2019-11-09 03:36] VITALS: BP 132/82; PULSE 69; RESP 18; TEMP 36.5; O2SAT 98
[2019-11-09] MEDS: Heparin 5,000 UNITS/ML VIAL 5000 UNITS SC (06:54)
[2019-11-09 07:21] VITALS: BP 161/81; PULSE 81; RESP 17; TEMP 36.8; O2SAT 98
[2019-11-09 07:37] LABS: Abs Immature Grans 0.01 k/cumm (0.0-0.09); Absolute Basophil Count 0.02 k/cumm (0.0-0.2); Absolute Lymphocyte Count 2.05 k/cumm (1.2-3.4); Absolute Monocyte Count 0.44 k/cumm (0.11-0.7); Absolute Neutrophil Count 4.33 k/cumm (1.2-6.7); Basophils % 0.3; Eosinophils % 1.4; HCT 29.4 % (36.0-46.0); HGB 9.6 g/dL (12.0-15.5); Immature Grans % 0.1; Lymphocytes % 29.5; Mean Corp. HGB Concentration 32.7 g/dL (32.0-36.0); Mean Corpuscular Hemoglobin 29.4 pg (27.0-33.0); Mean Corpuscular Volume 90.2 fL (80-95); Mean Platelet Volume 9.8 fL (8.0-11.0); Monocytes % 6.3; Neutrophils % 62.4; Platelet Count 301 x1000/uL (130-400); RBC 3.26 m/cumm (4.00-5.20); RBC Distribution Width 11.6 % (11.7-14.6); White Blood Cell Count 6.95 k/cumm (4.4-10.8)
[2019-11-09 07:51] LABS: Anion Gap 7.7 mmol/L (3-11); BUN 21 mg/dL (7-18); CO2 28.3 mmol/L (21.0-32.0); Calcium 8.6 mg/dL (8.5-10.1); Chloride 105 mmol/L (98-107); Estimated GFR 45.98 (mL/min/1.73m2); Glucose 142 mg/dL (74-106); Magnesium 1.7 mg/dL (1.8-2.4); Potassium 4.4 mmol/L (3.5-5.1); Sodium 141 mmol/L (136-145)
[2019-11-09 08:36] LABS: Hemoglobin A1C 10.4 % (3.8-5.6)
[2019-11-09] MEDS: Magnesium Oxide 400 MG TAB PO ×2 (08:36→10:18)
[2019-11-09] MEDS: Gabapentin 300 MG CAP PO (08:36)
[2019-11-09 09:57] VITALS: O2SAT 98
[2019-11-09] MEDS: Cephalexin 500 MG CAP PO (10:17)
[2019-11-09] MEDS: Collagenase 30 GM TUBE TP (10:18)
--- NOTE | 2019-11-09 10:54 | DSE_ITS ---
Date of service: 11/09/19 Time of Service: 10:54 DS: Diagnosis Discharge Diagnosis (1) Neuropathic diabetic ulcer of foot: Status: Acute (2) Type II diabetes mellitus with complication, uncontrolled: Status: Chronic (3) Anemia: Status: Chronic Discharge Plan Disposition Patient Disposition: HOME Condition: Improving Discharge Details Chief Complaint: Cellulitis Reason For Visit: CELLULITIS Admit Date/Time: 11/06/19 20:18 Admit Provider: Dionte Lomeli Attending Provider: Dionte Lomeli Primary Care Provider: Sherlyn Pyle ED Provider: Marii Moser Hospital Course Hospital Course: Joann De Los Santos is a 59-year-old female with a past medical history significant for poorly controlled diabetes, anemia and chronic kidney disease who presented to the emergency department on 11/06/2019 with reports of ulceration to her right great toe with surrounding erythema. She was afebrile in the emergency department, without leukocytosis. The ulceration was noted to have a foul odor in the emergency department, a culture was obtained. She had an x-ray which did not show osteomyelitis. [facility] and podiatry consult. She was initiated on IV Zosyn. Her wound culture grew group B strep. She was also noted to have a urinary tract infection. Her urine culture grew Klebsiella. She is followed by podiatry, the cellulitis surrounding her right great toe ulceration resolved. Dr. Hidalgo recommended transitioning to oral Keflex, this will also cover her urinary tract infection. She is transition to Keflex and will discharge home today with follow-up with podiatry next week. The Keflex is renally dosed at 500 mg p.o. twice daily. Her renal function appears to be near baseline. She will have repeat labs in 3 days to reevaluate her renal function as well as her anemia and CRP. Her diabetes is not well controlled, her hemoglobin A1c on the day of discharge is 10.4. Her blood glucose was variable while she was an inpatient, from 68-320. She will be discharged on the current insulin regimen with follow-up with her primary care provider. Home Meds and New Rx's Prescriptions: No Action Humalog U-100 Insulin 100 UNIT/ML cartridge 4 units PO PRN PRNRF: 0 Lantus Solostar U-100 Insulin 100 UNIT/ML insulin pen 30 units Sub-Q HS RF: 0 gabapentin 300 MG capsule 1 cap PO BID RF: 0 Discharge Instructions Instructions: Diabetic Foot Ulcers (DC) Additional Instructions: Dr. Hidalgo's office will call you next week for an appointment. If you do not hear from them, please call his office. He will see you next week. Take the Keflex (antibiotic) as prescribed until you see Dr. Hidalgo. Continue to monitor your blood glucose. Follow up with your PCP as scheduled. Take care! Stand Alone Forms: Nursing Discharge Form Referrals: Sherlyn Pyle [Primary Care Provider] - 11/16/19 9:45 am Darnell Hidalgo DPM [[facility] STAFF PHYSICIAN] - (The office will call you Friday with an appointment) Activity:: Activity as Tolerated Equipment/Supplies:: No Equipment Needed Diet:: Carb Counting Discharge Orders Discharge Orders: Discharge Order (Routine); Ordered 11/09/19 Ordered By: Bailee Sadler DS: Summary Status at Discharge Functional status at discharge: independent ambulation Overall status at discharge: patient is progressing back to baseline Mental Status: mental status grossly normal Speech and Movement: speech and movement normal Mood: congruent mood Affect: normal affect Exam Narrative Exam Narrative: General: very pleasant 59 year old female, appears stated age, thin, alert and oriented. HEENT: normocephalic, atraumatic, puple equal and round, EOMI, mucous membranes moist. Neck: supple, no JVD. Cardiovascular: heart has regular rate and rhythm, no murmur appreciated, nontachycardic. Respiratory: respirations even and unlabored, lung sounds clear to auscultation throughout. GI: normoactive bowel sounds, abdomen soft, nontender on palpation. Extremities: right great toe wrapped, no significant edema to BLEs, pedal pulses palpable bilaterally. Psych Mental Status: mental status grossly normal Speech and Movement: speech and movement normal Mood: congruent mood Affect: normal affect DS: Data Vitals/I&O Vitals and I&O: Vital Signs Temperature 36.8 C 11/09/19 07:21 Temperature Source Tympanic 11/09/19 07:21 Pulse 81 11/09/19 07:21 Pulse Rhythm Regular 11/09/19 03:25 Pulse 82 11/07/19 14:12 Respiratory Rate 17 11/09/19 07:21 Respiratory Effort 11/09/19 03:25 Respiratory Depth Normal 11/09/19 03:25 Respiratory Pattern Normal 11/09/19 03:25 Blood Pressure 161/81 H 11/09/19 07:21 Blood Pressure Mean 78 11/06/19 20:30 Pulse Oximetry 98 11/09/19 09:57 Oxygen Delivery Method Room Air 11/09/19 09:57 Oxygen Flow Rate 0 11/09/19 09:57 Pain Level 0 11/09/19 07:21 Intake & Output 11/08/19 11/08/19 11/09/19 11:59 23:59 11:59 Intake Total 2174.167 / 3804.167 1630 / 3804.167 510 / 510 Output Total 800 / 2200 1400 / 2200 Balance 1374.167 / 1604.167 230 / 1604.167 510 / 510 Weight 53.1 kg 54.3 kg Intake: IV 2054.167 / 3204.167 1150 / 3204.167 120 / 120 Oral 120 / 600 480 / 600 390 / 390 Output: Urine 800 / 2200 1400 / 2200 Other: Urine Color Yellow Yellow Urine Appearance Cloudy Clear Urine Odor Normal Comment multiple voids voids indep Voiding Methods Bedside Commode Toilet Toilet Data Completed and Pending Completed studies during hospitalization [Text1]: 11/06/19: EXAM: XR TOE RT GREAT INDICATION: r/o osteomyelitis, red, hot foot, ulcer COMPARISON: No exams were available for comparison TECHNIQUE: 2D digital imaging was performed. FINDINGS: No acute fracture or dislocation is seen. No radiographic findings are seen to suggest osteomyelitis. Degenerative changes are seen at the 1st metatarsophalangeal joint. IMPRESSION: No radiographic evidence to suggest osteomyelitis. If there is continued concern, a bone scan or MRI may be performed for further evaluation. Labs on day of discharge: Labs from last 24 hours 11/09/19 11/09/19 11/09/19 07:00 07:00 06:28 WBC 6.95 RBC 3.26 L Hgb 9.6 L Hct 29.4 L MCV 90.2 MCH 29.4 MCHC 32.7 RDW 11.6 L Plt Count 301 MPV 9.8 Immature Gran % 0.1 Neutrophils % 62.4 Lymphocytes % 29.5 Monocytes % 6.3 Eosinophils % 1.4 Basophils % 0.3 Absolute Neutrophils 4.33 Absolute Lymphocytes 2.05 Absolute Monocytes 0.44 Absolute Eosinophils 0.10 Absolute Basophils 0.02 Sodium 141 Potassium 4.4 Chloride 105 Carbon Dioxide 28.3 Anion Gap 7.7 BUN 21 H Creatinine 1.20 H Estimated GFR/1.73 m2 45.98 Glucose 142 H D Hemoglobin A1c 10.4 H Calcium 8.6 Magnesium 1.7 L Preliminary micro results at discharge 11/06/19 19:18 Wound Culture - Preliminary Foot - Right Group B Streptococcus Normal Kailee 11/06/19 19:25 Blood Culture - Preliminary Blood NO GROWTH 48 HOURS 11/06/19 18:30 Blood Culture - Preliminary Blood NO GROWTH 48 HOURS [facility] Medical History Anemia (Chronic) CKD (chronic kidney disease) (Acute) long-term current use of insulin (Chronic) Neuropathic diabetic ulcer of foot (Acute) Type II diabetes mellitus with complication, uncontrolled (Chronic) Social History Smoking/Tobacco Use Status: Never Alcohol Intake: never Drug use: Daily Substance use type: marijuana Do you feel safe at home: Yes Do you feel safe in your relationship?: Yes
--- NOTE | 2019-11-09 11:38 | PDOC.CMDIS ---
- If Service Date Differs Date of service: 11/09/19 Time of Service: 11:38 LACE Index Scoring Tool - Questions: Length of Stay (in days): 3 Acuity (Admit via E.D.?): Yes E.D. Visits: 2 - Answers: Total Score: 8 Risk of Readmission: Low Risk Care Management Discharge Reason for Hospitalization: Cellulitis Discharge Plan: Joann is being discharged home. She will follow up with Dr. Hidalgo, with her primary care physician, and her plan of care as directed including medication recommendations. Her is transporting her home via private vehicle. Patient/Family Education Needs: Nursing will review discharge instructions with Joann re medications and follow-up appointments. Joann is able to verbalize reason for hospitalization and how to manage care at home.
[2019-11-09] MEDS: Insulin Aspart 300 UNITS/3 ML PEN SC (12:04)
== END 2019-11-09 13:00 | disposition home or self-care (01) | DRG 638 ==
LOC: ER 20:54 → MS 21:09
PROVIDERS: Nurse Practitioner Family; Admitting Provider Family Medicine; Emergency Provider Physician Assistant; PCP Nurse Practitioner Family; Visit Provider Family Medicine
DX: E11.621 Type 2 diabetes mellitus with foot ulcer (principal); L02.611 Cutaneous abscess of right foot; N39.0 Urinary tract infection, site not specified; Z16.11 Resistance to penicillins; L03.031 Cellulitis of right toe; L97.511 Non-pressure chronic ulcer of other part of right foot limited to breakdown of skin; E11.65 Type 2 diabetes mellitus with hyperglycemia; Z79.4 Long term (current) use of insulin; B95.1 Streptococcus, group B, as the cause of diseases classified elsewhere; E11.42 Type 2 diabetes mellitus with diabetic polyneuropathy; D64.9 Anemia, unspecified; Z71.3 Dietary counseling and surveillance; B96.1 Klebsiella pneumoniae [K. pneumoniae] as the cause of diseases classified elsewhere; Z23 Encounter for immunization; E11.22 Type 2 diabetes mellitus with diabetic chronic kidney disease
CPT/HCPCS: 36415; 80048; 80053; 85027; 87040; 87077; 96365; 99223; 99232; 99233; 99239; 99284; 73660; 81003; 81015; 83036; 83540; 83605; 83735; 85025; 86140; 87070; 87086; 87186; 87205; 99285; J1644; J2543; J3475

== ENCOUNTER 2019-11-12 09:57 | Outpatient (CLI) | payer MEDICAID, SELFPAY ==
[2019-11-12 10:22] LABS: HCT 31.2 % (36.0-46.0); HGB 10.1 g/dL (12.0-15.5); Mean Corp. HGB Concentration 32.4 g/dL (32.0-36.0); Mean Corpuscular Hemoglobin 29.9 pg (27.0-33.0); Mean Corpuscular Volume 92.3 fL (80-95); Mean Platelet Volume 9.2 fL (8.0-11.0); Platelet Count 367 x1000/uL (130-400); RBC 3.38 m/cumm (4.00-5.20); White Blood Cell Count 9.08 k/cumm (4.4-10.8)
[2019-11-12 11:54] LABS: Anion Gap 7.8 mmol/L (3-11); BUN 28 mg/dL (7-18); C-Reactive Protein 1.76 mg/dL (0.0-0.3); CO2 28.2 mmol/L (21.0-32.0); CREATININE 1.13 mg/dL (0.55-1.02); Calcium 9.2 mg/dL (8.5-10.1); Chloride 105 mmol/L (98-107); Estimated GFR 49.28 (mL/min/1.73m2); Glucose 209 mg/dL (74-106); Potassium 5.1 mmol/L (3.5-5.1); Sodium 141 mmol/L (136-145)
== END 2019-11-12 10:17 ==
LOC: NCHCO 10:00 → LBO 10:05
PROVIDERS: PCP Nurse Practitioner Family; Visit Provider Nurse Practitioner
DX: N18.9 Chronic kidney disease, unspecified (principal); E11.621 Type 2 diabetes mellitus with foot ulcer; E11.40 Type 2 diabetes mellitus with diabetic neuropathy, unspecified; L97.509 Non-pressure chronic ulcer of other part of unspecified foot with unspecified severity
CPT/HCPCS: 36415; 80048; 85027; 86140

== ENCOUNTER 2019-11-17 14:22 | Outpatient (REF) | payer MEDICAID, SELFPAY ==
[2019-11-17 21:13] LABS: HDL Cholesterol 55 mg/dL (40-60); LDL CHOLESTEROL 75 mg/dL (<100)
== END 2019-11-17 14:42 ==
LOC: NCHCN 14:22
PROVIDERS: PCP Nurse Practitioner Family; Visit Provider Nurse Practitioner Family
DX: E11.9 Type 2 diabetes mellitus without complications (principal)
CPT/HCPCS: 83721; 83718

== ENCOUNTER 2020-01-14 09:57 | Day surgery (SDC) | payer MEDICAID, SELFPAY ==
[2020-01-14 10:11] VITALS: BP 138/84; PULSE 86; RESP 16; TEMP 36.4; O2SAT 99
[2020-01-14] MEDS: Lactated Ringers 1,000 ML 80 ML IV (10:39)
[2020-01-14] MEDS: ceFAZolin 1 GM/50 ML BAG IVPB (13:46)
[2020-01-14] MEDS: Bupivacaine 0.5% Pres-Free 30 ML VIAL (13:53)
[2020-01-14] MEDS: Lidocaine 1% Pres-Free 5 ML VIAL (13:53)
--- NOTE | 2020-01-14 14:15 | AMP_PTH ---
PATIENT: Joann De Los Santos LOC: [facility] U#:[id number] AGE/SX: 59/F ROOM: RE01/14/[address]: Darnell Hidalgo : 1960 BED: DIS: 01/14/2020 SPEC #: [id number] RECD: 01/14/20 17:36 STATUS: DAVID RETessa #: [id number] MIRTA: 01/14/20 14:[address]: Darnell Hidalgo DEPT: Surgical Specimen RECD BY: Karla Lawson ENTERED: 01/14/20 17:36 SP TYPE: Amputation OTHR DR: Sherlyn Pyle Tissues: 1 - AMPUTATION FINGERS/TOES(NOT TRAUMA) Procedures: GROSS AND MICRO LEVEL 4 DECALCIFICATION Comments: [id number]
--- NOTE | 2020-01-14 14:33 | W.PM.DSUDISC ---
Discharge Plan Disposition Patient Disposition: HOME Condition: Stable Discharge Details Attending Provider: Darnell Hidalgo Primary Care Provider: Sherlyn Pyle Home Meds and New Rx's Prescriptions: New cephalexin 500 mg tablet 500 mg PO QID Qty: 120 RF: 0 hydrocodone-ibuprofen 5-200 mg tablet 1 tab PO Q6H PRN (Reason: post op pain) Qty: 7 RF: 0 Continued Humalog U-100 Insulin 100 UNIT/ML cartridge 4 units PO PRN PRNRF: 0 gabapentin 300 MG capsule 1 cap PO BID RF: 0 magnesium oxide 400 mg (241.3 mg magnesium) Tablet 400 mg PO DAILY Qty: 14 RF: 0 cephalexin 500 mg Capsule 500 mg PO BID Qty: 20 RF: 0 Santyl 250 unit/gram Ointment 0 g topical DAILY Qty: 0 RF: 0 Lantus Solostar U-100 Insulin 100 UNIT/ML insulin pen 20 unit Sub-Q HS Qty: 0 RF: 0 Discharge Instructions Stand Alone Forms: Gwen's Instructions-DSU, Anton Doe (DSU) Activity:: Elevate Remove Dressings/Wound Care:: Do Not Remove Shower/Bathe:: Cover Diet:: Normal Diet Discharge Orders Discharge Orders: Discharge Order (Routine); Ordered 01/14/20 Ordered By: Darnell Hidalgo DS: Diagnosis Discharge Diagnosis (1) Osteomyelitis of ankle or foot, right, acute: Start date: 01/14/20 Start time: 14:33 Status: Acute
--- NOTE | 2020-01-14 14:47 | ROE_ITS ---
DATE: JANUARY 14, 2020 Preoperative Diagnosis: Chronic diabetic ulcer right hallux with radiologic evidence of osteomyelitis. Postoperative Diagnosis: Same Operation: Debridement of the right great toe Anesthesia: Local block of the right great toe consisting of 10 cc. 50:50 mixture 1% Lidocaine plain, 0.5% Marcaine plain, 2 cc. of 1% Lidocaine with Epinephrine. Surgeon: Darnell Hidalgo DPM Indications: Joann sustained a thermal injury in late October ulcerating her right great toe. In spite of aggressive conservative treatment, the wound have failed to thrive and radiologic evidence of bone destruction is noted. She is being brought to the Operating Room for debridement of the right great toe. She fully understands the permanency of the procedure. She also understands that she may fail to thrive and more proximal tissue loss may occur. Informed consent has been obtained. No promises made to final outcome of surgery. Procedure: Joann was brought to the Operative Suite, placed in the supine position with the right foot prepped and draped in the usual sterile podiatric fashion. Anesthesia being obtained, attention was directed to the right great toe. Ulceration is appreciated from the distal tip of the toe extending medially to just about the interphalangeal joint extending dorsally to the dorsal edge of the toe and plantarly to the plantar thick/thin skin margin. There was no cellulitis. The base of the wound was somewhat fibrotic in appearance. The nail plate was severely dystrophic. Debridement included creating a dorsal flap and the bone appeared okay at the base of the digit. Based on the skin loss and radiologic evidence I decided to debride the bone back to the interphalangeal joint. A plantar flap was now planned preserving as much tissue as possible so as to afford primary closure. Once these flaps were obtained, the joint capsule was released at the interphalangeal joint. The extensor and flexor tendons were released and the distal aspect of the great toe was removed from the operative field. The head of the proximal phalanx appeared white and healthy. There were no signs of sepsis. Little debulking was performed so as to afford a nice closure. Irrigation was performed. The flaps were closed end on end utilizing #3-0 nylon suture in a near/far, far/near technique interspersed by #4-0 simple interrupted suture. The incision closed nicely without undue stress. Good capillary return was appreciated to the flaps. Xeroform gauze fluff compression dressings were applied. Attention was then directed to the back table where an incision was made down to the bone through the ulceration and with a rongeur bone samples were obtained. These were sent to pathology for aerobic and anaerobic cultures. Joann left the Operating Room with vital signs stable and vascular status intact. Sharp and sponge counts were correct. She will be followed by myself in the office next week.
== END 2020-01-14 15:15 | disposition home or self-care (01) ==
PROVIDERS: PCP Nurse Practitioner Family; Visit Provider Podiatrist
PROC: (CPT 28825; principal; 2020-01-14 12:45)
DX: M86.171 Other acute osteomyelitis, right ankle and foot (principal); E11.621 Type 2 diabetes mellitus with foot ulcer; L97.514 Non-pressure chronic ulcer of other part of right foot with necrosis of bone; Z89.411 Acquired absence of right great toe
CPT/HCPCS: 28825; 11044; 87070; 88300; 88305; 87075; 87205; 88311; J0690

== ENCOUNTER 2020-04-17 17:13 | Outpatient (REF) | payer MEDICAID, SELFPAY | END 2020-04-17 17:33 | LOC: NCHCN 17:13 | PROVIDERS: PCP Nurse Practitioner Family; Visit Provider Nurse Practitioner Family | DX: N39.0 Urinary tract infection, site not specified (principal) | CPT/HCPCS: 87077; 87086; 87186 ==

== ENCOUNTER 2020-05-17 14:00 | Outpatient (REF) | payer MEDICAID, SELFPAY ==
[2020-05-17 20:33] LABS: Anion Gap 10.8 mmol/L (3-11); BUN 34 mg/dL (7-18); CO2 26.2 mmol/L (21.0-32.0); CREATININE 1.21 mg/dL (0.55-1.02); Calcium 9.3 mg/dL (8.5-10.1); Chloride 101 mmol/L (98-107); Estimated GFR 45.39 (mL/min/1.73m2); Glucose 206 mg/dL (74-106); Potassium 4.6 mmol/L (3.5-5.1); Sodium 138 mmol/L (136-145)
== END 2020-05-17 14:20 ==
LOC: NCHCN 14:00
PROVIDERS: PCP Nurse Practitioner Family; Visit Provider Nurse Practitioner Family
DX: E11.9 Type 2 diabetes mellitus without complications (principal); N28.9 Disorder of kidney and ureter, unspecified
CPT/HCPCS: 80048

== ENCOUNTER 2020-06-07 00:55 | Outpatient (CLI) | payer MEDICAID, SELFPAY ==
--- NOTE | 2020-06-07 12:03 | DI.MAMMO_ITS ---
EXAM: MG MAMMO SCREENING CLINICAL HISTORY: SCREENING, [facility],Z00.00 TECHNIQUE: Mammograms were interpreted according to the usual protocol including computer analysis w [employer] CAD system, tomosynthesis and C-view imaging. COMPARISON: No exams were available for comparison. The patient's last exam was more than 10 years ago. FINDINGS: The breasts are composed of scattered fibroglandular densities, Breast Density category B. No suspicious masses or suspicious microcalcifications are seen. No skin thickening or abnormal axillary lymph nodes are seen. Vascular calcifications are noted. IMPRESSION: BI-RADS Category 1, negative mammogram. Yearly screening mammography is recommended. Breast Density Category B, scattered fibroglandular densities.
== END 2020-06-07 01:15 ==
PROVIDERS: PCP Nurse Practitioner Family; Visit Provider Nurse Practitioner Family
DX: Z12.31 Encounter for screening mammogram for malignant neoplasm of breast (principal); R92.2 Inconclusive mammogram
CPT/HCPCS: 77063; 77067

== ENCOUNTER 2020-07-31 02:10 | Outpatient (CLI) | payer MEDICAID, SELFPAY ==
[2020-08-01 12:45] LABS: COVID-19 RT-PCR Result NEGATIVE (Negative)
== END 2020-07-31 02:30 ==
PROVIDERS: PCP Nurse Practitioner Family; Visit Provider Family Medicine
DX: Z11.59 Encounter for screening for other viral diseases (principal); Z01.811 Encounter for preprocedural respiratory examination
CPT/HCPCS: U0003

== ENCOUNTER 2020-08-03 04:53 | Outpatient (CLI) | payer MEDICAID, SELFPAY ==
[2020-08-03] MEDS: Albuterol HFA 18 GM 200 PUFF INH IH (12:41)
[2020-08-03] MEDS: Methacholine 100 MG VIAL IH (12:41)
[2020-08-03] MEDS: Inhaler, Assist Device 1 EACH MC (12:42)
--- NOTE | 2020-08-03 16:05 | W.PFT ---
Date of service: 08/03/20 Time of Service: 10:13 Pulmonary Function Test Result Interpretation Spirometry: No evidence of obstructive airways disease no bronchodilator response Impression No evidence of obstructive airways disease, no bronchodilator response Clinical Correlation therefore is recommended. Methacholine Challnege Test Date of Service Date of Service: 08/03/2020 Note After normal baseline spirometry methacholine challenge testing was carried out up to methacholine concentration of 2 mg/mL. At that point the patient had a 27% drop in FEV1. Impression Strongly positive methacholine challenge test. Clinical correlation recommended
== END 2020-08-03 05:13 ==
PROVIDERS: PCP Nurse Practitioner Family; Visit Provider Nurse Practitioner Family
DX: R06.02 Shortness of breath (principal); F12.10 Cannabis abuse, uncomplicated; R94.2 Abnormal results of pulmonary function studies
CPT/HCPCS: 94060; 94726; 94729; 95070; 94010; J7674

== ENCOUNTER 2020-08-16 14:29 | Outpatient (REF) | payer MEDICAID, SELFPAY ==
[2020-08-16 20:27] LABS: Abs Immature Grans 0.02 10^3/uL (0.0-0.06); Absolute Basophil Count 0.03 10^3/uL (0.0-0.2); Absolute Monocyte Count 0.41 10^3/uL (0.1-0.8); Absolute Neutrophil Count 3.88 10^3/uL (1.2-6.7); Basophils % 0.5; Eosinophils % 1.6; HGB 10.9 g/dL (11.2-15.7); Immature Grans % 0.3; Lymphocytes % 31.1; MCH 31.1 pg (27.0-33.0); MPV 11.3 fL (8.0-11.0); Monocytes % 6.4; Neutrophils % 60.1; Nucleated RBC 0 %; Platelet Count 230 10^3/uL (130-400); RBC 3.51 10^6/uL (3.93-5.22); RDW 12.1 % (11.7-14.6); RDW-SD 41.8 fL; WBC 6.44 10^3/uL (4.4-10.8)
[2020-08-16 20:41] LABS: Anion Gap 8.7 mmol/L (3-11); BUN 26 mg/dL (7-18); CO2 25.3 mmol/L (21.0-32.0); CREATININE 1.26 mg/dL (0.55-1.02); Calcium 8.7 mg/dL (8.5-10.1); Chloride 107 mmol/L (98-107); Estimated GFR 43.32 (mL/min/1.73m2); Glucose 149 mg/dL (74-106); Potassium 4.8 mmol/L (3.5-5.1); Sodium 141 mmol/L (136-145)
== END 2020-08-16 14:49 ==
LOC: NCHCN 14:29
PROVIDERS: PCP Nurse Practitioner Family; Visit Provider Nurse Practitioner Family
DX: N39.0 Urinary tract infection, site not specified (principal); E11.9 Type 2 diabetes mellitus without complications
CPT/HCPCS: 80048; 87077; 85025; 87086; 87186

== ENCOUNTER 2020-10-16 19:59 | Outpatient (REF) | payer MEDICAID, SELFPAY ==
[2020-10-16 20:44] LABS: Iron 67 ug/dL (50-170); Total Iron Binding Capacity 292 ug/dL (250-450); Transferrin Sat 23 % (15-50)
[2020-10-16 21:10] LABS: Ferritin 157 ng/mL (8-252); HDL Cholesterol 89 mg/dL (40-60); LDL CHOLESTEROL 114 mg/dL (<100); TSH (W/Ref FT4) 0.88 uIU/mL (0.36-3.74); Vitamin B12 473 pg/mL (193-986)
[2020-10-16 21:12] LABS: Folate > 20.0 ng/mL (8.6-20.0)
== END 2020-10-16 20:19 ==
LOC: NCHCN 19:59
PROVIDERS: PCP Nurse Practitioner Family; Visit Provider Nurse Practitioner Family
DX: E11.319 Type 2 diabetes mellitus with unspecified diabetic retinopathy without macular edema (principal); I95.1 Orthostatic hypotension; D64.9 Anemia, unspecified; N28.9 Disorder of kidney and ureter, unspecified
CPT/HCPCS: 83721; 82607; 82728; 82746; 83540; 83550; 83718; 84443

== ENCOUNTER 2020-12-20 19:55 | Outpatient (REF) | payer MEDICAID, SELFPAY ==
[2020-12-20 16:12] LABS: Abs Immature Grans 0.02 10^3/uL (0.0-0.06); Absolute Basophil Count 0.04 10^3/uL (0.0-0.2); Absolute Eosinophil Count 0.15 10^3/uL (0.0-0.7); Absolute Lymphocyte Count 2.47 10^3/uL (1.2-3.4); Absolute Monocyte Count 0.43 10^3/uL (0.1-0.8); Absolute Neutrophil Count 4.13 10^3/uL (1.2-6.7); Basophils % 0.6; Eosinophils % 2.1; HCT 32.7 % (36.0-46.0); HGB 10.8 g/dL (11.2-15.7); Immature Grans % 0.3; Lymphocytes % 34.1; MCH 30.6 pg (27.0-33.0); MCV 92.6 fL (80-95); MPV 11.7 fL (8.0-11.0); Monocytes % 5.9; Nucleated RBC 0 %; Platelet Count 235 10^3/uL (130-400); RBC 3.53 10^6/uL (3.93-5.22); RDW 12.5 % (11.7-14.6); RDW-SD 42.5 fL; WBC 7.24 10^3/uL (4.4-10.8)
[2020-12-20 16:35] LABS: Anion Gap 9.9 mmol/L (3-11); BUN 25 mg/dL (7-18); CO2 26.1 mmol/L (21.0-32.0); CREATININE 1.1 mg/dL (0.55-1.02); Calcium 8.5 mg/dL (8.5-10.1); Chloride 105 mmol/L (98-107); Estimated GFR 50.67 (mL/min/1.73m2); Glucose 165 mg/dL (74-106); Potassium 4.6 mmol/L (3.5-5.1); Sodium 141 mmol/L (136-145)
== END 2020-12-20 19:56 | disposition home or self-care (01) ==
LOC: NCHCN 19:55
PROVIDERS: PCP Nurse Practitioner Family; Visit Provider Nurse Practitioner Family
DX: D64.9 Anemia, unspecified (principal); E11.9 Type 2 diabetes mellitus without complications; N28.9 Disorder of kidney and ureter, unspecified
CPT/HCPCS: 80048; 85025

== ENCOUNTER 2021-02-05 12:32 | Outpatient (CLI) | payer MEDICAID, SELFPAY ==
--- NOTE | 2021-02-05 12:45 | RT.EKG_ITS ---
APPROVED REPORT Exam: Resting ECG Patient Location: O HR:74 bpm ECG Measurements Heart Rate 74 AXIS HI 150 P 56 QRSd 80 QRS 78 QT 381 T 63 QTc 424 Conclusion Sinus rhythm...normal P axis, V-rate 60- 99 Probable left atrial enlargement...P >50mS, <-0.10mV V1
== END 2021-02-05 12:33 | disposition home or self-care (01) ==
LOC: RT 12:36
PROVIDERS: PCP Nurse Practitioner Family; Visit Provider Surgery
DX: N18.9 Chronic kidney disease, unspecified (principal); D63.1 Anemia in chronic kidney disease; Z79.4 Long term (current) use of insulin; E11.65 Type 2 diabetes mellitus with hyperglycemia; J45.909 Unspecified asthma, uncomplicated; R06.02 Shortness of breath
CPT/HCPCS: 93005; 93010

== ENCOUNTER 2021-02-05 14:50 | Outpatient (REF) | payer MEDICAID, SELFPAY ==
[2021-02-05 16:01] LABS: Bilirubin Negative (Negative); Blood Negative (Negative); Clarity Clear (Clear); Glucose 100 mg/dL (Negative); Ketones Negative (Negative); Leukocyte Esterase Negative (Negative); Nitrite Negative (Negative); Specific Gravity 1.025 (1.005-1.025); Urobilinogen 0.2 EU/dL (Up TO 0.2)
[2021-02-05 16:02] LABS: Reticulocyte 1.5 % (0.5-2.4)
[2021-02-05 16:10] LABS: Bacteria Negative HPF (Negative); C & S Indicated? No/Sq. Contamination; Casts Negative LPF (Negative); Crystals Negative HPF (Negative); Epithelial Cells Many HPF (Negative); Mucus Negative (Negative); Other Cells Negative (Negative); RBC Negative HPF (0-2); WBC 0-2 HPF (0-5)
[2021-02-05 16:26] LABS: Iron 70 ug/dL (50-170); Total Iron Binding Capacity 294 ug/dL (250-450); Transferrin Sat 24 % (15-50)
[2021-02-05 16:34] LABS: Hemoglobin A1C 8.7 % (<5.7)
[2021-02-05 16:41] LABS: Anion Gap 8.7 mmol/L (3-11); BUN 26 mg/dL (7-18); CO2 29.3 mmol/L (21.0-32.0); CREATININE 1.3 mg/dL (0.55-1.02); Calcium 9.2 mg/dL (8.5-10.1); Chloride 101 mmol/L (98-107); Estimated GFR 41.78 (mL/min/1.73m2); Ferritin 145 ng/mL (8-252); Glucose 220 mg/dL (74-106); Potassium 4.5 mmol/L (3.5-5.1); Sodium 139 mmol/L (136-145); TSH (W/Ref FT4) 1.18 uIU/mL (0.36-3.74)
== END 2021-02-05 14:51 | disposition home or self-care (01) ==
LOC: LBN 14:50
PROVIDERS: PCP Nurse Practitioner Family; Visit Provider Surgery
DX: D64.9 Anemia, unspecified (principal); E11.65 Type 2 diabetes mellitus with hyperglycemia; Z79.4 Long term (current) use of insulin; N18.9 Chronic kidney disease, unspecified
CPT/HCPCS: 80048; 81003; 81015; 82728; 83036; 83540; 83550; 84443; 85045

== ENCOUNTER 2021-02-21 02:48 | Outpatient (CLI) | payer MEDICAID, SELFPAY ==
[2021-02-21 11:10] LABS: Source Nasal/Nares
[2021-02-21 14:05] LABS: COVID-19 PCR Negative (Negative)
== END 2021-02-21 02:49 | disposition home or self-care (01) ==
LOC: LBO 02:48
PROVIDERS: PCP Nurse Practitioner Family; Visit Provider Surgery
DX: Z20.822 Contact with and (suspected) exposure to COVID-19 (principal); Z01.818 Encounter for other preprocedural examination
CPT/HCPCS: 87635

== ENCOUNTER 2021-02-23 09:07 | Day surgery (SDC) | payer MEDICAID, SELFPAY ==
[2021-02-23 09:03] VITALS: BP 162/89; PULSE 89; RESP 22; TEMP 37; O2SAT 98
[2021-02-23] MEDS: Lactated Ringers 1,000 ML 80 ML IV (09:33)
--- NOTE | 2021-02-23 10:37 | BOWEL_PTH ---
PATIENT: Joann De Los Santos LOC: [facility] U#:[id number] AGE/SX: 60/F ROOM: RE02/23/[address]: Shira Fountain : 1960 BED: DIS: 02/23/2021 SPEC #: [id number] RECD: 02/23/21 12:29 STATUS: DAVID RE #: [id number] MIRTA: 02/23/21 10:[address]: Shira Fountain DEPT: Surgical Specimen RECD BY: Karla Lawson ENTERED: 02/23/21 12:30 SP TYPE: Bowel OTHR DR: Sehrlyn Pyle Tissues: 1 - BIOPSY BOWEL Procedures: GROSS AND MICRO LEVEL 4 Comments: [id number]
--- NOTE | 2021-02-23 10:45 | PDOC.DSDIS_ITS ---
Discharge Plan Disposition Patient Disposition: HOME Condition: Fair Discharge Details Reason For Visit: stomach and colon scope Attending Provider: Shira Fountain Primary Care Provider: Sherlyn Pyle Home Meds and New Rx's Prescriptions: No Action cinnamon bark [Cinnamon] 500 mg capsule 1,000 mg PO DAILY RF: 0 rgddoewloqbn-Vl-linu-minerals 18-0.4 mg tablet 1 tab PO DAILY RF: 0 fluticasone propionate 50 mcg/actuation spray,suspension 1 spray intranasal DAILY RF: 0 simvastatin 20 mg tablet 10 mg PO DAILY RF: 0 ondansetron HCl [Zofran] 4 mg tablet 4 mg PO Q8H RF: 0 albuterol sulfate [ProAir HFA] 90 mcg/actuation HFA aerosol inhaler 1 inh inhalation ONCE RF: 0 Flovent HFA 110 mcg/actuation HFA aerosol inhaler 1 puff inhalation BID RF: 0 Humalog U-100 Insulin 100 UNIT/ML cartridge 4 units PO PRN PRNRF: 0 gabapentin 300 MG capsule 1 cap PO BID RF: 0 Lantus Solostar U-100 Insulin 100 UNIT/ML insulin pen 20 unit Sub-Q HS Qty: 0 RF: 0 Discharge Instructions Additional Instructions: Findings:incomplete emptying of stomach and colon. Stomach is no longer emptying due to long standing poorly controlled DM Need to get blood sugars under control Follow up:gastric emptying study F/u down at [facility] w/ GI. Please call if you develop: fevers >101.5 Nausea or Vomiting Abdominal pain that is not transient DAY SURGERY UNIT POST COLONOSCOPY INSTRUCTIONS 1. Because there will be medication in your system for the next 24 hours, you may feel a little sleepy. Your coordination will be affected. Therefore: a. Do not drive or operate dangerous equipment for 24 hours. b. Do not drink alcohol beverages for 24 hours (not even beer). c. Plan to go home and rest for the day. 2. Generally there are no restrictions on your activity after a day or so has gone by, but you may feel a bit fatigued for a few days. 3 After you arrive home you may have a light meal and return to a normal diet as you can tolerate it without feeling sick to your stomach. 4. After surgery, you may feel pain or discomfort. This should be only transient, but if it persists please contact your doctor. 5. If there are any questions regarding the findings of your procedure, please feel free to contact your doctor. 6. If you are unable to contact your doctor with a problem, contact the hospital at [phone]. 7. Continue all your regular medications unless directed otherwise. I understand the above instructions and have no questions. Signature of Patient or Responsible Adult Escort Date/Time Name of Responsible Adult Escort Signature of Nurse Date/Time Activity:: No lifting over 20 pounds or strenuous activity x24 hours Diet:: Carb Counting DS: Diagnosis Discharge Diagnosis (1) Chronic lower urinary tract infection: Status: Acute (2) CKD (chronic kidney disease): Status: Acute (3) Anemia: Status: Chronic (4) Type II diabetes mellitus with complication, uncontrolled: Status: Chronic (5) Neuropathic diabetic ulcer of foot: Status: Acute (6) Gastroparesis: Status: Acute (7) Vaginal atrophy: Status: Acute (8) Incomplete rectal prolapse: Status: Acute
[2021-02-23 10:52] VITALS: BP 167/88; PULSE 96; RESP 10; TEMP 36.4; O2SAT 94
[2021-02-23 10:57] VITALS: BP 96/68; PULSE 84; RESP 15; TEMP 36.4; O2SAT 97
--- NOTE | 2021-02-23 10:59 | W.PM.ENDDOP ---
Date of service: 02/23/21 Time of Service: 10:59 Endoscopy Report PROCEDURE DESCRIPTION: After informed consent was obtained the patient was take to the procedure room and placed in a supine position. Monitors were applied and a time out was done. The patients name, date of , procedure type, allergies to medications and metal in their body was reviewed. A bite block was placed and the patient was sedated. Once sedated and comfortable the gastroscope was advanced through the oropharynx which was grossly normal into the esophagus. The proximal and mid-esophagus were nl. There is no hiatal hernia. The GE junction appears normal. Her stomach is completely full of retained food. There is no signs of ulcers or gastritis for what I can see. There is no hiatal hernia. The procedure is abandoned for patient safety. The scope was removed and the patient was woken up and taken back to [facility] in stable condition. Follow up: pt will be sent for gastric emptying study
--- NOTE | 2021-02-23 11:00 | W.COLOREPORT ---
Date of service: 02/23/21 Time of Service: 11:00 Colonoscopy Report Date of procedure: 02/23/21 Pre-op diagnosis general: anemia Post-op diagnosis procedure note: other (gastroparesis /autonaumic dysregulation ) Anesthesia Type: General:No Airway Estimated blood loss (mL): 1 Pathology: other Disposition: same day Prep: Miralax/Dulcolax Retraction Time: 15 Procedure Description: After informed consent was obtained the patient was taken to the procedure room and placed in a left decubitous position. Monitors were applied and a time out was done. The patients name, date of , procedure, allergies to medications and metal in their body was reviewed. The patient was then sedated. Once sedated and comfortable a rectal exam was done. Rectal exam reveals rectal prolapse. She has severe thinning of the perineal body. She has severe vaginal atrophy. This causes distortion of the placement of the urethra. The prep was very incomplete, there is liquid stool coating the ford and sold material which obstructs/clogs the scope. This was not amendable to lavage as the contents continue to occlude the scope. Once we get to the hepatic flexure I can no longer do the procedure for retained fecal contents. She does have a small polyp at 80 cm that is removed with cold biting forceps. From what I can see, there is no signs of any diverticular disease. There are no internal hemorrhoids. The scope was then withdrawn. Patient had procedure well with no complication. The scope was then introduced and retrofelexed. No internal hemorrhoids were identified. The prep was poor- lesions would be easily missed. The scope was then slowly retracted over 10 minutes back into the rectum. The scope was removed and the patient was woken up and taken back to Same day surgery in stable condition. Pt appears to have degree of autonaumic dysfunction/dysregulation due to long standing poorly controlled DM. The patient tolerated the procedure well and there were no immediate complications. Follow up: The patient should follow up in 5 years unless they develop changes in bowel habits or other new gastrointestinal complaints. referral [place] [facility] [place] of BS stressed to pt. Referral also placed w/ Uro
[2021-02-23 11:02] VITALS: BP 114/79; PULSE 84; RESP 14; TEMP 36.4; O2SAT 100
[2021-02-23 11:08] VITALS: BP 167/90; PULSE 84; RESP 15; TEMP 36.4; O2SAT 100
[2021-02-23] MEDS: IRON SUCROSE COMPLEX 300 MG in Normal Saline 250 ML 176.667 MG IVPB (11:23)
[2021-02-23 11:51] VITALS: BP 174/93; PULSE 80; RESP 16; TEMP 36.7; O2SAT 98
== END 2021-02-23 13:24 | disposition home or self-care (01) ==
PROVIDERS: PCP Nurse Practitioner Family; Visit Provider Surgery
PROC: 0DJD8ZZ Inspection of Lower Intestinal Tract, Via Natural or Artificial Opening Endoscopic (ICD-10-PCS; CPT 45378; principal; 2021-02-23 09:45)
PROC: 0DJ68ZZ Inspection of Stomach, Via Natural or Artificial Opening Endoscopic (ICD-10-PCS; CPT 43235; 2021-02-23 09:45)
DX: D64.9 Anemia, unspecified (principal); D12.6 Benign neoplasm of colon, unspecified; K62.3 Rectal prolapse; E11.43 Type 2 diabetes mellitus with diabetic autonomic (poly)neuropathy; E11.65 Type 2 diabetes mellitus with hyperglycemia; K31.84 Gastroparesis; Z79.4 Long term (current) use of insulin; N95.2 Postmenopausal atrophic vaginitis
CPT/HCPCS: 45380; 43239; 88305; 96365; 96366; J1756; J2001; J2405

== ENCOUNTER 2021-05-30 10:17 | Outpatient (REF) | payer MEDICAID, SELFPAY ==
--- NOTE | 2021-05-30 10:00 | PAPFT_PTH ---
PATIENT: Joann De Los Santos LOC: [facility] U#:[id number] AGE/SX: 61/F ROOM: RE05/30/[address]: Sherlyn Pyle : 1960 BED: DIS: 05/30/2021 SPEC #: [id number] RECD: 05/31/21 12:54 STATUS: DAVID REQ #: [id number] MIRTA: 05/30/21 10:[address]: Sherlyn Pyle DEPT: [facility] Cytology RECD BY: Karla Lawson Tissues: 1 - CX/ENDOCX FOR PAP SMEARS Procedures: PAP THIN PREP/UVM Screening Comments: [id number] (UNSATISFACTORY FOR EVALUTION)
[2021-05-30 16:15] LABS: HCT 34.7 % (36.0-46.0); HGB 11.4 g/dL (11.2-15.7); MCHC 32.9 % (32.0-36.0); MCV 91.3 fL (80-95); MPV 11.3 fL (8.0-11.0); Platelet Count 224 10^3/uL (130-400); RDW 11.9 % (11.7-14.6); RDW-SD 40.4 fL; WBC 6.55 10^3/uL (4.4-10.8)
== END 2021-05-30 10:18 | disposition home or self-care (01) ==
LOC: LBN 10:17
PROVIDERS: PCP Nurse Practitioner Family; Visit Provider Nurse Practitioner Family
DX: D64.9 Anemia, unspecified (principal); E11.9 Type 2 diabetes mellitus without complications; Z12.4 Encounter for screening for malignant neoplasm of cervix; Z01.419 Encounter for gynecological examination (general) (routine) without abnormal findings; R87.615 Unsatisfactory cytologic smear of cervix
CPT/HCPCS: 85027; 88142

== ENCOUNTER 2022-01-15 16:16 | Outpatient (REF) | payer MEDICAID, SELFPAY ==
[2022-01-15 19:32] LABS: Hemoglobin A1C 7.9 % (<5.7)
[2022-01-15 19:51] LABS: Anion Gap 8.7 mmol/L (3-11); BUN 27 mg/dL (7-18); CO2 25.3 mmol/L (21.0-32.0); CREATININE 1.3 mg/dL (0.55-1.02); Calcium 8.9 mg/dL (8.5-10.1); Calculated LDL 90 mg/dL (<100); Chloride 103 mmol/L (98-107); Cholesterol 169 mg/dL (<200); Estimated GFR 41.64 (mL/min/1.73m2); Glucose 183 mg/dL (74-106); HDL Cholesterol 70 mg/dL (40-60); Potassium 4.3 mmol/L (3.5-5.1); Sodium 137 mmol/L (136-145); Triglyceride 48 mg/dL (<150)
== END 2022-01-15 16:17 | disposition home or self-care (01) ==
LOC: NCHCN 16:16
PROVIDERS: PCP Nurse Practitioner Family; Visit Provider Nurse Practitioner Family
DX: E11.9 Type 2 diabetes mellitus without complications (principal)
CPT/HCPCS: 80048; 80061; 83036

== ENCOUNTER 2022-02-14 14:29 | Outpatient (REF) | payer MEDICAID, SELFPAY ==
--- NOTE | 2022-02-14 14:05 | PAPFT_PTH ---
PATIENT: Joann De Los Santos LOC: [facility] U#:[id number] AGE/SX: 61/F ROOM: RE02/14/[address]: Belkis Yousif DO : 1960 BED: DIS: 02/14/2022 SPEC #: [id number] RECD: 02/14/22 17:36 STATUS: DAVID REQ #: [id number] MIRTA: 02/14/22 14:[address]: Belkis Yousif DEPT: [facility] Cytology RECD BY: Karla Lawson ENTERED: 02/14/22 17:36 SP TYPE: PAPFT OTHR DR: Sherlyn Pyle Tissues: 1 - CX/ENDOCX FOR PAP SMEARS Procedures: PAP THIN PREP/UVM Screening HPV DNA PROBE Comments: [id number]
== END 2022-02-14 14:30 | disposition home or self-care (01) ==
LOC: LBN 14:29
PROVIDERS: PCP Nurse Practitioner Family; Visit Provider Obstetrics & Gynecology
DX: Z12.4 Encounter for screening for malignant neoplasm of cervix (principal); Z11.51 Encounter for screening for human papillomavirus (HPV)
CPT/HCPCS: 88142; 87624

== ENCOUNTER → 2022-03-20 00:06 | Outpatient (CLI) | payer MEDICAID, SELFPAY ==
--- NOTE | 2022-03-20 07:30 | DI.US_ITS ---
Exam(s) US PELVIS TRANSVAGINAL EXAM: US PELVIS TRANSVAGINAL CLINICAL HISTORY: evaluate endometrium,POSTMENOPAUSAL BLEEDING,N95.0 TECHNIQUE: Transabdominal and transvaginal imaging was performed using standard protocol. COMPARISON: CT ABD PELVIS WITH CONTRAST from 08/19/2016 FINDINGS: KIDNEYS: Kidneys are symmetric in size. No evidence of renal calculi. No evidence of hydronephrosis. No renal mass or cyst identified. UTERUS: Anteverted. 4.7 x 2.9 x 3.7 Endometrium: Less than 2 millimeters. No fluid within the canal. Myometrium: Unremarkable. 7 millimeter calcification. This was seen on prior CT. No associated vis ible mass. Cervix: Unremarkable. OVARIES: Right: Cyst or mass: None. Left: Cyst or mass: None. DOPPLER: Color: Symmetric and uniform flow to both ovaries. No hyperemia. Duplex: Normal ovarian arterial waveforms visualized. CUL-DE-SAC: Free fluid: None. IMPRESSION: 1. endometrial stripe within normal limits. 2. Unremarkable bilateral ovaries. DATA REPOSITORY:
== END ==
PROVIDERS: PCP Nurse Practitioner Family; Visit Provider Obstetrics & Gynecology
DX: N95.0 Postmenopausal bleeding (principal)
CPT/HCPCS: 76830; 76856

== ENCOUNTER 2022-04-25 18:04 | Outpatient (REF) | payer MEDICAID, SELFPAY | END 2022-04-25 18:05 | disposition home or self-care (01) | LOC: NCHCN 18:04 | PROVIDERS: PCP Nurse Practitioner Family; Visit Provider Nurse Practitioner Family | DX: N39.0 Urinary tract infection, site not specified (principal) | CPT/HCPCS: 87077; 87086; 87186 ==

== ENCOUNTER 2022-10-22 13:31 | Outpatient (REF) | payer MEDICAID, SELFPAY ==
[2022-10-22 15:57] LABS: Hemoglobin A1C 7.7 % (<5.7)
[2022-10-22 16:03] LABS: ALT 23 U/L (14-59); AST 21 U/L (15-37); Albumin 4.1 g/dL (3.4-5.0); Alkaline Phosphatase 90 U/L (46-116); Anion Gap 8.5 mmol/L (3-11); BUN 33 mg/dL (7-18); Bilirubin, Total 1.7 mg/dL (0.2-1.0); CO2 29.5 mmol/L (21.0-32.0); CREATININE 1.3 mg/dL (0.55-1.02); Calcium 9.2 mg/dL (8.5-10.1); Chloride 100 mmol/L (98-107); Estimated GFR 46.49 (mL/min/1.73m2); Glucose 211 mg/dL (74-106); HDL Cholesterol 89 mg/dL (40-60); LDL CHOLESTEROL 66 mg/dL (<100); Potassium 4.4 mmol/L (3.5-5.1); Sodium 138 mmol/L (136-145); Total Protein 7.2 g/dL (6.4-8.2)
[2022-10-22 16:21] LABS: Creatine Kinase 51 U/L (26-192)
== END 2022-10-22 13:32 | disposition home or self-care (01) ==
LOC: NCHCN 13:31
PROVIDERS: PCP Nurse Practitioner Family; Visit Provider Nurse Practitioner Family
DX: E11.9 Type 2 diabetes mellitus without complications (principal)
CPT/HCPCS: 80053; 82550; 83721; 83036; 83718

== ENCOUNTER 2024-02-24 15:54 | Outpatient (REF) | payer MEDICAID, SELFPAY ==
[2024-02-24 16:23] LABS: Hemoglobin A1C 7.6 % (<5.7)
[2024-02-24 16:35] LABS: ALT 22 U/L (14-59); AST 22 U/L (15-37); Alkaline Phosphatase 102 U/L (46-116); Anion Gap 10.1 mmol/L (3-11); BUN 18 mg/dL (7-18); Bilirubin, Total 1.4 mg/dL (0.2-1.0); CO2 26.9 mmol/L (21.0-32.0); CREATININE 1.3 mg/dL (0.55-1.02); Chloride 104 mmol/L (98-107); Creatine Kinase 74 U/L (26-192); Estimated GFR 46.21 (mL/min/1.73m2); Glucose 166 mg/dL (74-106); HDL Cholesterol 84 mg/dL (40-60); Potassium 4.4 mmol/L (3.5-5.1); Sodium 141 mmol/L (136-145); Total Protein 7.3 g/dL (6.4-8.2)
== END 2024-02-24 15:55 | disposition home or self-care (01) ==
LOC: NCHCN 15:54
PROVIDERS: PCP Nurse Practitioner Family; Visit Provider Nurse Practitioner Family
DX: E11.9 Type 2 diabetes mellitus without complications (principal); I10 Essential (primary) hypertension
CPT/HCPCS: 80053; 82550; 83036; 83718

== ENCOUNTER 2024-03-09 11:17 | Outpatient (REF) | payer MEDICAID, SELFPAY ==
[2024-03-09 15:44] LABS: Anion Gap 4.6 mmol/L (3-11); BUN 27 mg/dL (7-18); CO2 27.4 mmol/L (21.0-32.0); CREATININE 1.5 mg/dL (0.55-1.02); Calcium 9.5 mg/dL (8.5-10.1); Chloride 104 mmol/L (98-107); Estimated GFR 38.91 (mL/min/1.73m2); Glucose 191 mg/dL (74-106); Potassium 5.4 mmol/L (3.5-5.1); Sodium 136 mmol/L (136-145)
== END 2024-03-09 11:18 | disposition home or self-care (01) ==
LOC: NCHCN 11:17
PROVIDERS: PCP Nurse Practitioner Family; Visit Provider Nurse Practitioner Family
DX: I10 Essential (primary) hypertension (principal)
CPT/HCPCS: 80048

== ENCOUNTER 2024-09-10 21:29 | Emergency (ER) | payer MEDICAID, SELFPAY ==
[2024-09-10 21:29] VITALS: BP 132/66; PULSE 90; RESP 16; TEMP 36.4; O2SAT 98
--- NOTE | 2024-09-10 21:42 | W.ED.GENAD ---
Discharge Plan Disposition Patient Disposition: Home Condition: Stable Discharge Details Clinical Impression: Cellulitis of right arm Primary Care Provider: Sherlyn Pyle ED Provider: Brendon Jones Home Meds and New Rx's Prescriptions: New doxycycline hyclate 100 mg tablet 100 mg PO BID Qty: 14 0RF amoxicillin-pot clavulanate 875-125 mg tablet 1 tab PO BID Qty: 14 0RF Continued (DME) Aerochamber MV Spacer See Rx Instructions .Route Rx Instructions: As directed (DME) FreeStyle Lara 2 Sensor Kit See Rx Instructions .Route Rx Instructions: As directed (DME) FreeStyle Lara 2 [employer] Misc See Rx Instructions .Route Rx Instructions: As directed Humalog U-100 Insulin 100 unit/mL cartridge 4 unit PO PRN PRN Patient Comments: sliding scale Rx Instructions: Sliding scale lisinopril 10 mg tablet 5 mg PO DAILY metformin 500 mg tablet 500 mg PO DAILY (DME) pen needle, diabetic [TechLITE Pen Needle] 32 gauge x 5/32 needle See Rx Instructions .Route Rx Instructions: As directed insulin glargine [Lantus Solostar U-100 Insulin] 100 unit/mL (3 mL) insulin pen 25 unit Sub-Q HS Qty: 15 2RF cinnamon bark [Cinnamon] 500 mg capsule 1,000 mg PO DAILY zzzgeqswdlfp-Gt-biyv-minerals 18-0.4 mg tablet 1 tab PO DAILY fluticasone propionate 50 mcg/actuation spray,suspension 1 spray intranasal DAILY Rx Instructions: administer into each nostril simvastatin 20 mg tablet 10 mg PO DAILY ondansetron HCl [Zofran] 4 mg tablet 4 mg PO Q8H albuterol sulfate [ProAir HFA] 90 mcg/actuation HFA aerosol inhaler 1 inh inhalation ONCE fluticasone propionate [Flovent HFA] 110 mcg/actuation HFA aerosol inhaler 1 puff inhalation BID gabapentin 300 MG capsule 1 cap PO BID Discharge Instructions Instructions: Cellulitis (Skin Infection), Adult ED Additional Instructions: If not improving this week follow-up with your primary care provider If you feel more ill, have severe worsening pain or high fevers return to the emergency department for reevaluation. HPI General Mode of arrival: ambulatory. Date/Time Provider Initiated Documentation: 09/10/24 21:31. Limitations to Documentation: no limitations. Information obtained by: patient. History of Present Illness 64 year old F presents to the emergency department with the chief complaint of right forearm redness, described as moderate, Quality is described as aching, Patient started experiencing this day(s) (2) and it has been constant. No relieving factors improve symptom(s), No exacerbating factors reported . Patient notes denies chest pain, fever/chills and shortness of breath. Patient did receive the following treatments prior to arrival, none Related Data Home Medications ?Medication ?Instructions ?Recorded ?Confirmed gabapentin 300 mg capsule 1 cap PO BID 06/27/18 06/18/24 albuterol sulfate 90 mcg/actuation 1 inh inhalation ONCE 01/31/21 06/18/24 aerosol inhaler (ProAir HFA) fluticasone propionate 110 1 puff inhalation BID 01/31/21 06/18/24 mcg/actuation HFA aerosol inhaler (Flovent HFA) fluticasone propionate 50 1 spray intranasal DAILY 01/31/21 06/18/24 mcg/actuation nasal spray,suspension ondansetron HCl 4 mg tablet 4 mg PO Q8H 01/31/21 06/18/24 (Zofran) simvastatin 20 mg tablet 10 mg PO DAILY 01/31/21 06/18/24 cinnamon bark 500 mg capsule 1,000 mg PO DAILY 02/05/21 06/18/24 (Cinnamon) btxcaqjgdhcp-Ng-hzdn-minerals 18 1 tab PO DAILY 02/05/21 06/18/24 mg-0.4 mg tablet flash glucose scanning reader 06/03/24 06/18/24 (FreeStyle Lara 2 [employer]) flash glucose sensor (FreeStyle 06/03/24 06/18/24 Lara 2 Sensor kit) inhalational spacing device 06/03/24 06/18/24 (Aerochamber MV spacer) insulin lispro 100 unit/mL 4 unit PO PRN PRN 06/03/24 06/18/24 subcutaneous cartridge (Humalog U-100 Insulin) lisinopril 10 mg tablet 5 mg PO DAILY 06/03/24 06/18/24 metformin 500 mg tablet 500 mg PO DAILY 06/03/24 06/18/24 pen needle, diabetic 32 gauge x 06/03/24 06/18/24 (TechLITE Pen Needle) insulin glargine 100 unit/mL (3 25 unit (0.25 mL) subcut HS #15 mL 06/04/24 06/18/24 mL) subcutaneous pen (Lantus Solostar U-100 Insulin) amoxicillin 875 mg-potassium 1 tab PO BID #14 tabs 09/10/24 clavulanate 125 mg tablet doxycycline hyclate 100 mg tablet 100 mg PO BID #14 tabs 09/10/24 Previous Rx's ?Medication ?Instructions ?Recorded insulin glargine 100 unit/mL (3 25 unit (0.25 mL) subcut HS #15 mL 06/04/24 mL) subcutaneous pen (Lantus Solostar U-100 Insulin) amoxicillin 875 mg-potassium 1 tab PO BID #14 tabs 09/10/24 clavulanate 125 mg tablet doxycycline hyclate 100 mg tablet 100 mg PO BID #14 tabs 09/10/24 Allergies Allergy/AdvReac Type Severity Reaction Status Date / Time loratadine Allergy Intermediate heart races Verified 09/10/24 21:35 General Stated Complaint: Cellulitis VENICE: 3 Review of Systems All systems reviewed & are unremarkable except as noted in HPI and below Constitutional Constitutional: Denies chills, Denies fever(s) and Denies weakness Cardiovascular Cardiovascular: Denies chest pain and Denies dyspnea Respiratory Respiratory: Denies dyspnea Gastrointestinal Gastrointestinal: Denies abdominal pain, Denies nausea and Denies vomiting Integumentary/Breasts Skin/Breast: Reports rash Neurologic Neurologic: Denies weakness Exam Const General: no acute distress Orientation: alert HENNJ Head: normal to inspection Ears: external ears normal General nose exam: external nose normal Mouth: moist mucous membranes Eyes General: appearance normal, both eyes and all related structures Neck Neck: normal visual inspection Resp Effort & Inspection: normal respiratory effort and able to speak in complete sentences Cardio Rate: regular rate Skin General skin exam: erythema Neuro General: patient alert and patient oriented x3 Extrem General: full ROM and capillary refill normal Psych Mental Status: mental status grossly normal Course Vital Signs Vital signs: Vital Signs Temperature 36.4 C L 09/10/24 21:29 Pulse 90 09/10/24 21:29 Respiratory Rate 16 09/10/24 21:29 Blood Pressure 132/66 09/10/24 21:29 Pulse Oximetry 98 09/10/24 21:29 Temperature 36.4 C L 09/10/24 21:29 Temperature Source Temporal Artery Scan 09/10/24 21:29 Pulse 90 09/10/24 21:29 Respiratory Rate 16 09/10/24 21:29 Respiratory Effort Normal, Non-Labored 09/10/24 21:35 Blood Pressure 132/66 09/10/24 21:29 Blood Pressure Position Sitting 09/10/24 21:29 Pulse Oximetry 98 09/10/24 21:29 Oxygen Delivery Method Room Air 09/10/24 21:29 Oxygen Flow Rate 0 09/10/24 21:29 Pain Level 6 09/10/24 21:29 Medical Decision Making 64-year-old female with history of CKD, GERD, comes in with chief complaint of right arm redness. She says she has been helping family members move for the last few days and she thinks she may have rubbed her right arm against an object causing an open wound. She has had increased redness and discharge from the wound so came here for evaluation. Denies any systemic symptoms, no fevers or chills. She has no severe pain. She has 4.5 cm of erythema surrounding a skin abrasion on her right posterior mid forearm. There is no fluctuance, no crepitus, no severe pain. She has intact sensation and pulses. There is no significant swelling of the arm. Findings are consistent with likely cellulitis, will cover for both strep and staph with Augmentin and given her kidney disease prescribed Doxy instead of Bactrim. She will follow-up with her PCP and return precautions given. Given well appearance on exam and no systemic symptoms such as fevers do not feel any lab work indicated. She has no findings on exam to suggest necrotizing fasciitis Differential Diagnosis Differential Diagnosis: Cellulitis, abscess Quality:SDOH Health Related Social Needs: Health related social needs transportation insecurity(Z59.82) Health related social needs details dtr providing transportation PFSH All Active Problems (Updated 09/10/24 @ 21:45 by Brendon Jones MD) Cellulitis of right arm (Acute) Foot ulcer due to secondary DM (Acute) Retinopathy (Acute) Amputated great toe (Acute) History of colon polyps (Acute) Abnormal finding on evaluation procedure (Acute) [place] (Acute) Itchy skin (Acute) Disorder of kidney and ureter, unspecified (Acute) GERD (gastroesophageal reflux disease) (Chronic) Posterior rhinorrhea (Acute) Post-menopausal bleeding (Acute) Tubular adenoma (Acute ~02/2021) Incomplete rectal prolapse (Acute) Vaginal atrophy (Acute) Gastroparesis (Acute) Chronic lower urinary tract infection (Acute) Short of breath on exertion (Acute) Asthma (Chronic) Osteomyelitis of ankle or foot, right, acute (Acute) CKD (chronic kidney disease) (Acute) Anemia (Chronic) 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) Type II diabetes mellitus with complication, uncontrolled (Chronic) Neuropathic diabetic ulcer of foot (Acute) Cellulitis and abscess of foot (Acute) Closed nondisplaced transverse fracture of right patella with routine healing (Acute) Medical History Orthostatic hypotension Surgical History History of colonoscopy (~02/2021) History of esophagogastroduodenoscopy (EGD) (~02/2021) Family History (Updated 05/27/24 @ 14:00 by Norma Ramirez) Mother Diabetes Brother Diabetes Social History (Updated 05/27/24 @ 13:59 by Norma Ramirez) Smoking/Tobacco Use Status: Never Smoking risk assessment performed?: Yes Alcohol Intake: never Drug use: Daily Substance use type: marijuana Adopted: No Caregiver/Support person: No Foster care: No Household members: spouse Housing: house Number of Children: 4 number of grandchildren: 4 Pets and animals: Yes (2) Pets and animals: cat(s) and dog(s) Sexually active: Yes Do you think of yourself as: straight/heterosexual Current gender identity: female What is your relationship status?: How often do you talk on the phone with friends or family?: decline to answer How often do you get together with friends or relatives?: twice per week Do you belong to any clubs or organized social groups?: no Panel score (0-1 are the most socially isolated patients): 1 Yi/Baptism: Sikhism Seatbelt use: always Helmet use: Yes Drive intox or ride w/intox cmv driver: No Do you feel safe at home: Yes Do you feel safe in your relationship?: Yes History History 4 Para 3 Hx # Term Pregnancies 3 Multiple births Hx # Pregnancies Ectopic pregnancies AB induced Hx Number of Living Children 3 AB spontaneous
[2024-09-10] MEDS: Doxycycline Hyclate 100 MG CAP PO (21:44)
[2024-09-10] MEDS: Amoxicillin 875/Clav. 125 TAB PO (21:45)
== END 2024-09-10 22:03 | disposition home or self-care (01) ==
LOC: ER 21:47
PROVIDERS: Emergency Provider Emergency Medicine; PCP Nurse Practitioner Family
DX: M79.601 Pain in right arm (principal); L03.113 Cellulitis of right upper limb; Z87.448 Personal history of other diseases of urinary system
CPT/HCPCS: 99283

== ENCOUNTER 2025-04-15 15:31 | Inpatient (IN) | payer MEDICAID, SELFPAY ==
[2025-04-15] VITALS (60 sets, daily range): BP systolic 126–198; BP diastolic 72–119; PULSE 80–105; RESP 10–27; TEMP 36.6–36.8; O2SAT 93–100
--- NOTE | 2025-04-15 15:30 | DI.RAD_ITS ---
Exam(s) XR CHEST 2V PA LATERAL EXAM: XR CHEST 2V PA LATERAL CLINICAL HISTORY: cough, hyperglycemia TECHNIQUE: 2D digital imaging was performed of the chest. Images were obtained. PA and lateral v iews were obtained. COMPARISON: CR ABDOMEN 2 VIEW FLAT, UPRIGHT from 08/19/2016 FINDINGS: MEDIASTINUM: Normal. HEART: Normal. PULMONARY VASCULATURE: Normal. LUNGS: No focal consolidating infiltrates. PLEURAL SPACE: No pleural effusion or pneumothorax. BONE:Within normal limits for the patient's age. OTHER FINDINGS:Normal. IMPRESSION: No acute pulmonary findings. DATA REPOSITORY: RADIATION DOSE DELIVERED:
[2025-04-15] MEDS: Normal Saline 1,000 ML 1000 ML IV (15:49)
[2025-04-15 15:55] LABS: BE (Venous) 5 mmol/L (-2-3); HCO3 (Venous) 29 mmol/L (23-28); O2 Sat (Venous) 50 %; TCO2 (Venous) 25 mmol/L (24-29); pCO2 (Venous) 38 mmHg (41-51); pH (Venous) 7.48 (7.31-7.41); pO2 (Venous) 24 mmHg
[2025-04-15 15:57] LABS: Abs Immature Grans 0.02 10^3/uL (0.0-0.06); Absolute Basophil Count 0.03 10^3/uL (0.0-0.2); Absolute Lymphocyte Count 1.44 10^3/uL (1.2-3.4); Absolute Monocyte Count 0.59 10^3/uL (0.1-0.8); Absolute Neutrophil Count 7.38 10^3/uL (1.2-6.7); Basophils % 0.3 %; HCT 38.6 % (36.0-46.0); HGB 13.7 g/dL (11.2-15.7); Immature Grans % 0.2 %; Lymphocytes % 15.2 %; MCH 30.6 pg (27.0-33.0); MCHC 35.5 % (32.0-36.0); MCV 86 fL (80-95); MPV 10.2 fL (8.0-11.0); Monocytes % 6.2 %; Neutrophils % 78.1 %; Platelet Count 310 10^3/uL (130-400); RBC 4.48 10^6/uL (3.93-5.22); RDW 11.1 % (11.7-14.6); RDW-SD 34.7 fL; WBC 9.46 10^3/uL (4.4-10.8)
[2025-04-15 16:44] LABS: COVID-19 PCR Negative (Negative); Influenza A PCR Negative (Negative); Influenza B PCR Negative (Negative); RSV PCR Negative (Negative)
[2025-04-15 16:45] LABS: Bilirubin Negative (Negative); Blood Trace-lysed (Negative); Clarity Sl Cloudy (Clear); Glucose >=1000 mg/dL (Negative); Ketones Negative (Negative); Leukocyte Esterase Moderate (Negative); Nitrite Negative (Negative); Specific Gravity 1.015 (1.005-1.025)
--- NOTE | 2025-04-15 16:45 | RT.EKG_ITS ---
APPROVED REPORT Exam: Resting ECG Reason for Exam: weakness Patient Location: E HR:92 bpm ECG Measurements Heart Rate 92 AXIS MT 144 P 68 QRSd 82 QRS 76 QT 358 T 69 QTc 443 Conclusion Sinus rhythm 92 normal axis no stemi
[2025-04-15 16:46] LABS: Source Nasopharynx
[2025-04-15 16:52] LABS: Bacteria Packed HPF (Negative); WBC >50 HPF (0-5)
[2025-04-15 16:54] LABS: ALT 22 U/L (14-59); AST 19 U/L (15-37); Albumin 4.4 g/dL (3.4-5.0); Alkaline Phosphatase 153 U/L (46-116); Anion Gap 12.3 mmol/L (3-11); BUN 21 mg/dL (7-18); Bilirubin, Total 3.1 mg/dL (0.2-1.0); CO2 28.7 mmol/L (21.0-32.0); CREATININE 1.6 mg/dL (0.55-1.02); Calcium 9.6 mg/dL (8.5-10.1); Chloride 84 mmol/L (98-107); Estimated GFR 35.57 (mL/min/1.73m2); Magnesium 1.5 mg/dL (1.8-2.4); Potassium 3.7 mmol/L (3.5-5.1); Sodium 125 mmol/L (136-145); Total Protein 8.4 g/dL (6.4-8.2)
[2025-04-15 16:55] LABS: Glucose 715 mg/dL (74-106)
[2025-04-15 16:57] LABS: C & S Indicated? Yes
[2025-04-15 17:19] LABS: Lactate 2.7 mmol/L (<or=2.0)
[2025-04-15] MEDS: cefTRIAXone 2 GM/50 ML BAG IVPB (17:32)
[2025-04-15] MEDS: POTASSIUM CHLORIDE 20 MEQ/100 ML BAG 50 MEQ IV_INF (17:32)
[2025-04-15] MEDS: MAGNESIUM SULFATE 1 GM/100 ML BAG IV_INF (17:32)
[2025-04-15] MEDS: Potassium Chloride 10 MEQ CAPCR 40 MEQ PO (17:56)
[2025-04-15] MEDS: INSULIN REGULAR IN 0.9 % NACL 100 UNIT/100 ML BAG IVINF (17:57)
[2025-04-15 19:58] LABS: Anion Gap 7.2 mmol/L (3-11); BUN 18 mg/dL (7-18); CO2 28.8 mmol/L (21.0-32.0); CREATININE 1.2 mg/dL (0.55-1.02); Calcium 8.7 mg/dL (8.5-10.1); Chloride 97 mmol/L (98-107); Estimated GFR 50.23 (mL/min/1.73m2); Glucose 405 mg/dL (74-106); Potassium 3.9 mmol/L (3.5-5.1); Sodium 133 mmol/L (136-145)
--- NOTE | 2025-04-15 20:20 | HPE_ITS ---
Date of service: 04/15/25 Time of Service: 20:21 Assessment and Plan Assessment and plan (1) HHNC (hyperglycemic hyperosmolar nonketotic coma): Start date: 04/15/25 Status: Acute Assessment and plan: This is a 65-year-old lady who mistaken that she had hypoglycemia and had increased intake of high glucose foods just prior to admission. She was slightly confused upon admission and did require IV hydration with insulin infusion during her ED stay which was converted to glucometer measurements before meals and bedtime and short acting insulin coverage with moderate sliding scale. She did miss her basal insulin injection being admitted to the [facility] floor late but this will be continued with a half dose in the morning and usual dose at night. She is eating and drinking and this will be encouraged with patient to continue IV fluid resuscitation and electrolyte repletion with follow-up labs. She was not in DKA. She is thin for type II diabetic with her last hemoglobin A1c 7 showing fair control. She will need to review her home glucometer devices before discharge. She is a full code. (2) Hypomagnesemia: Start date: 04/15/25 Status: Acute Assessment and plan: IV repletion and follow-up labs. This may have been secondary to acute decompensation with patient not on chronic diuretics. Dietary supplement if needed. (3) UTI (urinary tract infection): Start date: 04/15/25 Status: Acute Assessment and plan: Rocephin IV but the patient is not having fever or elevated WBC. She is compromised with her acute hyperglycemic state. Continue Rocephin converting to oral therapy appropriate to urine culture results with sensitivities. (4) Type 2 diabetes mellitus: Status: Chronic Assessment and plan: Continue insulin therapy while hospitalized and hold metformin with patient having increased lactate. Follow-up lactate with IV hydration. (5) CKD (chronic kidney disease): Status: Chronic Assessment and plan: Overall stable even though patient appears slightly dry. Trend labs. Potassium was given because of patient's hyperglycemia and insulin infusion but this electrolyte is normal. Watch for hyperkalemia. History of Present Illness History of Present Illness Chief Complaint: Weakness, nausea vomiting with lightheadedness and UTI symptoms. Narrative: This is a 65-year-old female patient who has type 2 diabetes mellitus but is very thin and usually is on glargine 25 units nightly and short acting insulin for mealtime coverage. She was measuring low on her glucometer measurements at home and was eating large amounts of sugary food found to treat this problem. It appears her device was not working properly and she presented to the ED with the above symptoms without fever or chills but having a dry cough at times and decreased urinary output with decreased intake having her GI symptoms. She suspects a UTI. She did have slight confusion according to family. In the ED she was found to be hyperglycemic with increased lactate with normal bicarb, respiratory alkalosis and increased anion gap. She was given IV fluids for resuscitation and these will be continued upon admission. Her sugar was over 700 and was coming down with insulin infusion in the ED which was discontinued and the glucose was in the range of 200. She was able to eat and drink. She had no fever or chills but did have some slight dysuria suspecting UTI. Her urine was positive and culture is pending. She was initiated on Rocephin. She will be admitted for continued IV hydration, trending labs with hypomagnesemia status post IV repletion, and monitoring of hyperglycemia with patient now on mealtime coverage and her basal insulin not given upon admission but will be reinitiated once she is stable. She is a full code. Review of Systems Narrative: 13 point review of system otherwise unrevealing or stable. The patient is thinly built. PFSH All Active Problems (Updated 04/16/25 @ 07:54 by Dionte Lomeli) Hypomagnesemia (Acute) Acute hyperglycemia (Acute) Type 2 diabetes mellitus (Chronic) HHNC (hyperglycemic hyperosmolar nonketotic coma) (Acute) UTI (urinary tract infection) (Acute) Foot ulcer due to secondary DM (Acute) Retinopathy (Acute) Amputated great toe (Acute) History of colon polyps (Acute) Abnormal finding on evaluation procedure (Acute) [place] (Acute) Itchy skin (Acute) Disorder of kidney and ureter, unspecified (Acute) GERD (gastroesophageal reflux disease) (Chronic) Posterior rhinorrhea (Acute) Post-menopausal bleeding (Acute) Tubular adenoma (Acute ~02/2021) Incomplete rectal prolapse (Acute) Vaginal atrophy (Acute) Gastroparesis (Acute) Chronic lower urinary tract infection (Acute) Short of breath on exertion (Acute) Asthma (Chronic) Osteomyelitis of ankle or foot, right, acute (Acute) CKD (chronic kidney disease) (Chronic) Anemia (Chronic) 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) Type II diabetes mellitus with complication, uncontrolled (Chronic) Neuropathic diabetic ulcer of foot (Acute) Cellulitis and abscess of foot (Acute) Closed nondisplaced transverse fracture of right patella with routine healing (Acute) Medical History Orthostatic hypotension Surgical History History of esophagogastroduodenoscopy (EGD) (~02/2021) History of colonoscopy (~02/2021) Family History Mother Diabetes Brother Diabetes Social History Smoking/Tobacco Use Status: Never Smoking risk assessment performed?: Yes Alcohol Intake: never Drug use: Daily Substance use type: marijuana Adopted: No Caregiver/Support person: No Foster care: No Household members: spouse Housing: house Number of Children: 4 number of grandchildren: 4 Pets and animals: Yes (2) Pets and animals: cat(s) and dog(s) Sexually active: Yes Do you think of yourself as: straight/heterosexual Current gender identity: female What is your relationship status?: How often do you talk on the phone with friends or family?: decline to answer How often do you get together with friends or relatives?: twice per week Do you belong to any clubs or organized social groups?: no Panel score (0-1 are the most socially isolated patients): 1 Yi/Restorationism: Gnosticist Seatbelt use: always Helmet use: Yes Drive intox or ride w/intox cdl b driver: No Do you feel safe at home: Yes Do you feel safe in your relationship?: Yes History History 2 4 Para 3 Hx # Term Pregnancies 3 Multiple births Hx # Pregnancies Ectopic pregnancies AB induced Hx Number of Living Children 3 AB spontaneous Meds Allergies and Home Medications Allergies Allergy/AdvReac Type Severity Reaction Status Date / Time loratadine Allergy Intermediate heart races Verified 04/15/25 15:44 Home Medications ?Medication ?Instructions ?Recorded ?Confirmed ?Type gabapentin 300 mg capsule 1 cap PO BID 06/27/18 04/15/25 History albuterol sulfate 90 mcg/actuation 1 inh inhalation ONCE 01/31/21 04/15/25 History aerosol inhaler (ProAir HFA) fluticasone propionate 110 1 puff inhalation BID 01/31/21 04/15/25 History mcg/actuation HFA aerosol inhaler (Flovent HFA) fluticasone propionate 50 1 spray intranasal DAILY 01/31/21 04/15/25 History mcg/actuation nasal spray,suspension cinnamon bark 500 mg capsule 1,000 mg PO DAILY 02/05/21 04/15/25 History (Cinnamon) anxkbjjxkgdq-Qh-sqbc-minerals 18 1 tab PO DAILY 02/05/21 04/15/25 History mg-0.4 mg tablet inhalational spacing device 06/03/24 04/15/25 History (Aerochamber MV spacer) insulin lispro 100 unit/mL 4 unit PO PRN PRN 06/03/24 04/15/25 History subcutaneous cartridge (Humalog U-100 Insulin) metformin 500 mg tablet 500 mg PO DAILY 06/03/24 04/15/25 History insulin glargine 100 unit/mL (3 25 unit (0.25 mL) subcut HS #15 mL 01/10/25 04/15/25 Rx mL) subcutaneous pen (Lantus Solostar U-100 Insulin) flash glucose scanning reader #1 ea 02/24/25 04/15/25 Rx (FreeStyle Lara 2 [employer]) flash glucose sensor (FreeStyle #3 ea 02/24/25 04/15/25 Rx Lara 2 Sensor kit) pen needle, diabetic 32 gauge x #400 ea 02/25/25 04/15/25 Rx 5/32 (TechLITE Pen Needle) simvastatin 20 mg tablet 10 mg (1/2 x 20 mg) PO DAILY 03/25/25 04/15/25 Rx cholesterol #45 tabs Exam Narrative Exam Narrative: General: Patient appears older than stated age, thin, chronically ill, flattened affect but normal conversation. She is alert and oriented x 3. HEENT: Normocephalic, eyes with pupils equal and reactive to light symmetrically, extraocular movement intact sclera anicteric. Oropharynx with dry mucosa. Neck: Supple without JVD. Back: Kyphotic without CVA tenderness. Lungs: Fair aeration and clear to auscultation percussion with no focalizing rales or rhonchi. Bronchovesicular breath sounds diffusely. Breast: Exam deferred. Heart: Regular rate and rhythm with no murmurs or gallops appreciated. Abdomen: Scaphoid contour, soft and nontender to palpation with no palpable hepatosplenomegaly. Genitalia/rectal: Exam deferred. Extremities: Without clubbing, cyanosis or grossly pitting edema. Good capillary refill. Skin: Normal color with tanned sun exposed areas and actinic changes, rough texture, warm and dry. Neuro: Cranial nerves II through XII grossly intact, no focalizing motor deficits. No tremor. Psych: Flattened affect with depressed mood. No abnormal thought processes. Remote and recent memory grossly intact. Results Imaging Imaging Studies: EXAM: XR CHEST 2V PA LATERAL Date of exam: 04/15/2025 CLINICAL HISTORY: cough, hyperglycemia TECHNIQUE: 2D digital imaging was performed of the chest. Images were obtained. PA and lateral views were obtained. COMPARISON: CR ABDOMEN 2 VIEW FLAT, UPRIGHT from 08/19/2016 FINDINGS: MEDIASTINUM: Normal. HEART: Normal. PULMONARY VASCULATURE: Normal. LUNGS: No focal consolidating infiltrates. PLEURAL SPACE: No pleural effusion or pneumothorax. BONE:Within normal limits for the patient's age. OTHER FINDINGS:Normal. IMPRESSION: No acute pulmonary findings. Labs 04/16/25 04:27 04/16/25 04:27 Labs: Laboratory Results - last 24 hr 04/15/25 04/15/25 04/15/25 15:45 16:04 16:31 WBC 9.46 RBC 4.48 Hgb 13.7 Hct 38.6 MCV 86 MCH 30.6 MCHC 35.5 RDW 11.1 L Plt Count 310 MPV 10.2 Immature Gran % 0.2 Neutrophils % 78.1 Lymphocytes % 15.2 Monocytes % 6.2 Eosinophils % 0.0 Basophils % 0.3 Nucleated RBC % 0.0 Absolute Neutrophils 7.38 H Absolute Lymphocytes 1.44 Absolute Monocytes 0.59 Absolute Eosinophils 0.00 Absolute Basophils 0.03 VBG pH 7.48 H VBG pCO2 38 L VBG pO2 24 VBG HCO3 29 H VBG Total CO2 25 VBG O2 Saturation 50 VBG Base Excess 5 H VBG Lactate Sodium 125 L Potassium 3.7 Chloride 84 L Carbon Dioxide 28.7 Anion Gap 12.3 H BUN 21 H Creatinine 1.6 H Est GFR (CKD-EPI 2021) 35.57 Glucose 715 H* Calcium 9.6 Magnesium 1.5 L Total Bilirubin 3.1 H AST 19 ALT 22 Alkaline Phosphatase 153 H Total Protein 8.4 H Albumin 4.4 Urine Color Yellow Urine Clarity Sl Cloudy Urine pH 7.0 Ur Specific [place] 1.015 Urine Protein Negative Urine Ketones Negative Urine Blood Trace-lysed H Urine Nitrite Negative Urine Bilirubin Negative Urine Urobilinogen 1.0 H Ur Leukocyte Esterase Moderate H Urine RBC Not Applicable Urine WBC >50 H Ur Epithelial Cells Not Applicable Urine Crystals Not Applicable Urine Bacteria Packed Urine Mucus Not Applicable Ur Culture Indicated? Yes Urine Glucose >=1000 H COVID-19 Source Nasopharynx SARS-CoV-2 (PCR) Negative Influenza Type A (PCR) Negative Influenza Type B (PCR) Negative RSV (PCR) Negative 04/15/25 04/15/25 17:10 19:37 WBC RBC Hgb Hct MCV MCH MCHC RDW Plt Count MPV Immature Gran % Neutrophils % Lymphocytes % Monocytes % Eosinophils % Basophils % Nucleated RBC % Absolute Neutrophils Absolute Lymphocytes Absolute Monocytes Absolute Eosinophils Absolute Basophils VBG pH VBG pCO2 VBG pO2 VBG HCO3 VBG Total CO2 VBG O2 Saturation VBG Base Excess VBG Lactate 2.7 H* Sodium 133 L Potassium 3.9 Chloride 97 L Carbon Dioxide 28.8 Anion Gap 7.2 BUN 18 Creatinine 1.2 H Est GFR (CKD-EPI 2020) 50.23 Glucose 405 H Calcium 8.7 Magnesium Total Bilirubin AST ALT Alkaline Phosphatase Total Protein Albumin Urine Color Urine Clarity Urine pH Ur Specific [place] Urine Protein Urine Ketones Urine Blood Urine Nitrite Urine Bilirubin Urine Urobilinogen Ur Leukocyte Esterase Urine RBC Urine WBC Ur Epithelial Cells Urine Crystals Urine Bacteria Urine Mucus Ur Culture Indicated? Urine Glucose COVID-19 Source SARS-CoV-2 (PCR) Influenza Type A (PCR) Influenza Type B (PCR) RSV (PCR) Last Vital Signs Temp 36.8 C 04/15/25 15:36 Pulse 86 04/15/25 19:20 Resp 17 04/15/25 19:20 BP 170/91 H 04/15/25 19:16 Pulse Ox 99 04/15/25 19:20 Time Spent Time spent with Patient: >75 minutes Time was spent: preparing to see the patient(eg.review tests), obtaining and/or reviewing separately otained hiistory, ordering medications,tests, procedures, indepentently interpreting results, counseling the patient and care coordination
--- NOTE | 2025-04-15 22:11 | W.PCEDHO ---
Registration Status: Primary Language: Preferred Language: ED Information & Data Chief Complaint Diabetes 04/15/25 15:43 Chief Complaint Diabetes 04/15/25 15:36 Triage Note blood sugars have been low 04/15/25 15:36 for past few days. dehydrated. concerned for UTI. has had cold symptoms. productive cough with clear phlegm. increased thirst and urination. BGL here reads high. has been giving her high sugar drinks thinking her blood sugar was low. Medical / Surgical History (Last Reviewed 04/15/25 @ 20:21 by Dionte Lomeli) Orthostatic hypotension (Last Reviewed 04/15/25 @ 20:21 by Dionte Lomeli) History of esophagogastroduodenoscopy (EGD) (~02/2021) History of colonoscopy (~02/2021) Most Recent Vital Signs Temperature 36.8 C 04/15/25 15:36 Pulse 82 04/15/25 21:31 Pulse 82 04/15/25 21:31 Respiratory Rate 18 04/15/25 21:31 Blood Pressure 130/77 04/15/25 21:31 Blood Pressure Mean 93 04/15/25 21:31 Blood Pressure Position Sitting 04/15/25 15:36 Pulse Oximetry 98 04/15/25 21:31 Oxygen Delivery Method Room Air 04/15/25 15:36 Oxygen Flow Rate 0 04/15/25 15:36 Pain Level 6 04/15/25 15:36 Comment back pain 04/15/25 15:36 Allergies loratadine Allergy (Intermediate, Verified 04/15/25 15:44) heart races Active Medications Generic Name Dose Route Start Last Admin Trade Name Burt PRN Reason Stop Dose Admin Insulin Human Regular 100 unit in 100 mls @ 2.722 mls/hr 04/15/25 17:05 04/15/25 21:07 Myxredlin IVINF 04/17/25 05:49 0.02 unit/kg/hr INFUSION STA 1.2 mls/hr Titration Protocol 0.05 UNIT/KG/HR IV IV Catheter Type [Left Saline Lock Antecubital] IV Catheter Type [Right Peripheral IV Antecubital] IV Catheter Gauge [Left 20 Antecubital] IV Catheter Gauge [Right 18 Antecubital] Diagnostics 04/15/25 04/15/25 04/15/25 Range/Units 19:37 17:10 16:31 WBC (4.4-10.8) 10^3/uL RBC (3.93-5.22) 10^6/uL Hgb (11.2-15.7) g/dL Hct (36.0-46.0) % MCV (80-95) fL MCH (27.0-33.0) pg MCHC (32.0-36.0) % RDW (11.7-14.6) % Plt Count (130-400) 10^3/uL MPV (8.0-11.0) fL Immature Gran % % Neutrophils % % Lymphocytes % % Monocytes % % Eosinophils % % Basophils % % Nucleated RBC % (0.0-0.3) % Absolute Neutrophils (1.2-6.7) 10^3/uL Absolute Lymphocytes (1.2-3.4) 10^3/uL Absolute Monocytes (0.1-0.8) 10^3/uL Absolute Eosinophils (0.0-0.7) 10^3/uL Absolute Basophils (0.0-0.2) 10^3/uL VBG pH (7.31-7.41) VBG pCO2 (41-51) mmHg VBG pO2 mmHg VBG HCO3 (23-28) mmol/L VBG Total CO2 (24-29) mmol/L VBG O2 Saturation % VBG Base Excess (-2-3) mmol/L VBG Lactate 2.7 H* (<or=2.0) mmol/L Sodium 133 L (136-145) mmol/L Potassium 3.9 (3.5-5.1) mmol/L Chloride 97 L (98-107) mmol/L Carbon Dioxide 28.8 (21.0-32.0) mmol/L Anion Gap 7.2 (3-11) mmol/L BUN 18 (7-18) mg/dL Creatinine 1.2 H (0.55-1.02) mg/dL Est GFR (CKD-EPI 2020) 50.23 (mL/min/1.73m2) Glucose 405 H (74-106) mg/dL Calcium 8.7 (8.5-10.1) mg/dL Magnesium (1.8-2.4) mg/dL Total Bilirubin (0.2-1.0) mg/dL AST (15-37) U/L ALT (14-59) U/L Alkaline Phosphatase (46-116) U/L Total Protein (6.4-8.2) g/dL Albumin (3.4-5.0) g/dL Urine Color Yellow (Yellow) Urine Clarity Sl Cloudy (Clear) Urine pH 7.0 (5-8) Ur Specific [place] 1.015 (1.005-1.025) Urine Protein Negative (Neg-Trace) mg/dL Urine Ketones Negative (Negative) mg/dL Urine Blood Trace-lysed H (Negative) Urine Nitrite Negative (Negative) Urine Bilirubin Negative (Negative) Urine Urobilinogen 1.0 H (Up to 0.2) mg/dL Ur Leukocyte Esterase Moderate H (Negative) Urine RBC Not Applicable Urine WBC >50 H (0-5) HPF Ur Epithelial Cells Not Applicable Urine Crystals Not Applicable Urine Bacteria Packed (Negative) HPF Urine Mucus Not Applicable Ur Culture Indicated? Yes Urine Glucose >=1000 H (Negative) mg/dL COVID-19 Source SARS-CoV-2 (PCR) (Negative) Influenza Type A (PCR) (Negative) Influenza Type B (PCR) (Negative) RSV (PCR) (Negative) 04/15/25 04/15/25 Range/Units 16:04 15:45 WBC 9.46 (4.4-10.8) 10^3/uL RBC 4.48 (3.93-5.22) 10^6/uL Hgb 13.7 (11.2-15.7) g/dL Hct 38.6 (36.0-46.0) % MCV 86 (80-95) fL MCH 30.6 (27.0-33.0) pg MCHC 35.5 (32.0-36.0) % RDW 11.1 L (11.7-14.6) % Plt Count 310 (130-400) 10^3/uL MPV 10.2 (8.0-11.0) fL Immature Gran % 0.2 % Neutrophils % 78.1 % Lymphocytes % 15.2 % Monocytes % 6.2 % Eosinophils % 0.0 % Basophils % 0.3 % Nucleated RBC % 0.0 (0.0-0.3) % Absolute Neutrophils 7.38 H (1.2-6.7) 10^3/uL Absolute Lymphocytes 1.44 (1.2-3.4) 10^3/uL Absolute Monocytes 0.59 (0.1-0.8) 10^3/uL Absolute Eosinophils 0.00 (0.0-0.7) 10^3/uL Absolute Basophils 0.03 (0.0-0.2) 10^3/uL VBG pH 7.48 H (7.31-7.41) VBG pCO2 38 L (41-51) mmHg VBG pO2 24 mmHg VBG HCO3 29 H (23-28) mmol/L VBG Total CO2 25 (24-29) mmol/L VBG O2 Saturation 50 % VBG Base Excess 5 H (-2-3) mmol/L VBG Lactate (<or=2.0) mmol/L Sodium 125 L (136-145) mmol/L Potassium 3.7 (3.5-5.1) mmol/L Chloride 84 L (98-107) mmol/L Carbon Dioxide 28.7 (21.0-32.0) mmol/L Anion Gap 12.3 H (3-11) mmol/L BUN 21 H (7-18) mg/dL Creatinine 1.6 H (0.55-1.02) mg/dL Est GFR (CKD-EPI 2020) 35.57 (mL/min/1.73m2) Glucose 715 H* (74-106) mg/dL Calcium 9.6 (8.5-10.1) mg/dL Magnesium 1.5 L (1.8-2.4) mg/dL Total Bilirubin 3.1 H (0.2-1.0) mg/dL AST 19 (15-37) U/L ALT 22 (14-59) U/L Alkaline Phosphatase 153 H (46-116) U/L Total Protein 8.4 H (6.4-8.2) g/dL Albumin 4.4 (3.4-5.0) g/dL Urine Color (Yellow) Urine Clarity (Clear) Urine pH (5-8) Ur Specific [place] (1.005-1.025) Urine Protein (Neg-Trace) mg/dL Urine Ketones (Negative) mg/dL Urine Blood (Negative) Urine Nitrite (Negative) Urine Bilirubin (Negative) Urine Urobilinogen (Up to 0.2) mg/dL Ur Leukocyte Esterase (Negative) Urine RBC Urine WBC (0-5) HPF Ur Epithelial Cells Urine Crystals Urine Bacteria (Negative) HPF Urine Mucus Ur Culture Indicated? Urine Glucose (Negative) mg/dL COVID-19 Source Nasopharynx SARS-CoV-2 (PCR) Negative (Negative) Influenza Type A (PCR) Negative (Negative) Influenza Type B (PCR) Negative (Negative) RSV (PCR) Negative (Negative) 04/15/25 17:35 Blood Culture - Pending Blood 04/15/25 17:10 Blood Culture - Pending Blood 04/15/25 16:31 Urine Culture - Pending Urine - Reflex from Ua [id number] Documentation Fingerstick Glucose Start: 04/15/25 16:57 Freq: .Stat Status: Active Protocol: Activity Type Activity Date Activity User E-sign Co-sign Detail Recorded Client Recorded Date Recorded By Document 04/15/25 17:59 BKG DAEMON(10) [id number] 04/15/25 18:00 BKG DAEMON(10) Fingerstick Glucose Start: 04/15/25 18:04 Freq: .Q1H Status: Active Protocol: Activity Type Activity Date Activity User E-sign Co-sign Detail Recorded Client Recorded Date Recorded By Document 04/15/25 22:03 BKG DAEMON(10) [id number] 04/15/25 22:04 BKG DAEMON(10) Intake and Output - 24 Hour Total 04/15/25 15:31 thru 04/15/25 21:07 Intake Total 1275.891 Balance 1275.891 Weight 54.431 kg Intake: IV 1275.891 Falls Risk Assessment History of Falls No History 04/15/25 15:53 Contributing Factors No Factors 04/15/25 15:53 Ambulatory Aids Independent 04/15/25 15:53 Tubes/Lines None 04/15/25 15:53 Gait Evaluation No gait disturbance 04/15/25 15:53 Cognition No cognitive impairment 04/15/25 15:53 Fall Total Score 0 04/15/25 15:53 Level of Risk Standard/Low Risk 04/15/25 15:53 Problems (Last Reviewed 04/15/25 @ 20:21 by iDonte Lomeli) Type 2 diabetes mellitus (Chronic) HHNC (hyperglycemic hyperosmolar nonketotic coma) (Acute) UTI (urinary tract infection) (Acute) CKD (chronic kidney disease) (Chronic) v v v v v v v v v Sending and/or Receiving Nurses: Please use comment section below to note any information pertinent to the patient hand-off not included above. Information / Comments:no question Report received from:Tera Davila RN
[2025-04-15 23:05] LABS: Anion Gap 6.4 mmol/L (3-11); BUN 18 mg/dL (7-18); CO2 29.6 mmol/L (21.0-32.0); CREATININE 1.2 mg/dL (0.55-1.02); Calcium 9.1 mg/dL (8.5-10.1); Chloride 99 mmol/L (98-107); Estimated GFR 50.23 (mL/min/1.73m2); Glucose 263 mg/dL (74-106); Potassium 4.3 mmol/L (3.5-5.1); Sodium 135 mmol/L (136-145)
--- NOTE | 2025-04-15 23:17 | W.ED.GENAD ---
Discharge Plan Disposition Patient Disposition: Admit to [facility] Discharge Details Clinical Impression: UTI (urinary tract infection), Acute hyperglycemia Admit Date/Time: 04/15/25 20:38 Admit Provider: Dionte Lomeli Attending Provider: Dionte Lomeli Primary Care Provider: Sherlyn Pyle ED Provider: Karla Issa HPI General Date/Time Provider Initiated Documentation: 04/15/25 15:37. HPI Narrative: 65-year-old female with type 2 diabetes, retinopathy, and chronic kidney disease presents with weakness, dizziness, cough, and cold symptoms. Experiencing hypoglycemia and consuming large amounts of sugary beverages. Reports weakness, nausea, vomiting, and lightheadedness. Suspects UTI due to increased urinary frequency. Related Data Home Medications ?Medication ?Instructions ?Recorded ?Confirmed gabapentin 300 mg capsule 1 cap PO BID 06/27/18 04/15/25 albuterol sulfate 90 mcg/actuation 1 inh inhalation ONCE 01/31/21 04/15/25 aerosol inhaler (ProAir HFA) fluticasone propionate 110 1 puff inhalation BID 01/31/21 04/15/25 mcg/actuation HFA aerosol inhaler (Flovent HFA) fluticasone propionate 50 1 spray intranasal DAILY 01/31/21 04/15/25 mcg/actuation nasal spray,suspension cinnamon bark 500 mg capsule 1,000 mg PO DAILY 02/05/21 04/15/25 (Cinnamon) [id number]-minerals 18 1 tab PO DAILY 02/05/21 04/15/25 mg-0.4 mg tablet inhalational spacing device 06/03/24 04/15/25 (Aerochamber MV spacer) insulin lispro 100 unit/mL 4 unit PO PRN PRN 06/03/24 04/15/25 subcutaneous cartridge (Humalog U-100 Insulin) metformin 500 mg tablet 500 mg PO DAILY 06/03/24 04/15/25 insulin glargine 100 unit/mL (3 25 unit (0.25 mL) subcut HS #15 mL 01/10/25 04/15/25 mL) subcutaneous pen (Lantus Solostar U-100 Insulin) flash glucose scanning reader #1 ea 02/24/25 04/15/25 (FreeStyle Lara 2 [place]agan) flash glucose sensor (FreeStyle #3 ea 02/24/25 04/15/25 Lara 2 Sensor kit) pen needle, diabetic 32 gauge x #400 ea 02/25/25 04/15/25 (TechLITE Pen Needle) simvastatin 20 mg tablet 10 mg (1/2 x 20 mg) PO DAILY 03/25/25 04/15/25 cholesterol #45 tabs Previous Rx's ?Medication ?Instructions ?Recorded insulin glargine 100 unit/mL (3 25 unit (0.25 mL) subcut HS #15 mL 01/10/25 mL) subcutaneous pen (Lantus Solostar U-100 Insulin) flash glucose scanning reader #1 ea 02/24/25 (FreeStyle Lara 2 [place]) flash glucose sensor (FreeStyle #3 ea 02/24/25 Lara 2 Sensor kit) pen needle, diabetic 32 gauge x #400 ea 02/25/25 (TechLITE Pen Needle) simvastatin 20 mg tablet 10 mg (1/2 x 20 mg) PO DAILY 03/25/25 cholesterol #45 tabs Allergies Allergy/AdvReac Type Severity Reaction Status Date / Time loratadine Allergy Intermediate heart races Verified 04/15/25 15:44 General Stated Complaint: Diabetes VENICE: 2 Exam Narrative Exam Narrative: General Appearance: Alert and oriented, ill-appearing but not in acute distress. Speaking in complete sentences. Vital signs: Temperature 97.9. HEENT: Pale, moist mucous membranes. Respiratory: Lungs clear to auscultation. Gastrointestinal: No abdominal tenderness. Skin: Warm and dry, no rash. Neurological: Normal. Course Vital Signs Vital signs: Vital Signs Temperature 36.8 C 04/15/25 15:36 Pulse 97 H 04/15/25 15:36 Respiratory Rate 16 04/15/25 15:36 Blood Pressure 179/83 H 04/15/25 15:36 Pulse Oximetry 100 04/15/25 15:36 Temperature 36.6 C 04/15/25 22:34 Temperature Source Tympanic 04/15/25 22:34 Pulse 92 H 04/15/25 22:34 Pulse 91 H 04/15/25 22:10 Respiratory Rate 22 04/15/25 22:34 Respiratory Effort Normal 04/15/25 22:59 Respiratory Depth Normal 04/15/25 22:59 Respiratory Pattern Normal 04/15/25 22:59 Blood Pressure 157/97 H 04/15/25 22:34 Blood Pressure Mean 117 04/15/25 22:34 Blood Pressure Position Sitting 04/15/25 15:36 Pulse Oximetry 99 04/15/25 22:34 Oxygen Delivery Method Room Air 04/15/25 22:34 Oxygen Flow Rate 0 04/15/25 22:34 Pain Level 6 04/15/25 22:34 Comment back pain 04/15/25 15:36 Lab/Test Results Lab/Test Results: 04/15/25 17:35 Blood Blood Culture - Pending 04/15/25 17:10 Blood Blood Culture - Pending 04/15/25 16:31 Urine - Reflex from Ua Urine Culture - Pending Laboratory Tests Range/Units 04/15/25 04/15/25 04/15/25 15:45 16:04 16:31 WBC (4.4-10.8) 10^3/uL 9.46 RBC (3.93-5.22) 10^6/uL 4.48 Hgb (11.2-15.7) g/dL 13.7 Hct (36.0-46.0) % 38.6 MCV (80-95) fL 86 MCH (27.0-33.0) pg 30.6 MCHC (32.0-36.0) % 35.5 RDW (11.7-14.6) % 11.1 L Plt Count (130-400) 10^3/uL 310 MPV (8.0-11.0) fL 10.2 Immature Gran % % 0.2 Neutrophils % % 78.1 Lymphocytes % % 15.2 Monocytes % % 6.2 Eosinophils % % 0.0 Basophils % % 0.3 Nucleated RBC % (0.0-0.3) % 0.0 Absolute Neutrophils (1.2-6.7) 10^3/uL 7.38 H Absolute Lymphocytes (1.2-3.4) 10^3/uL 1.44 Absolute Monocytes (0.1-0.8) 10^3/uL 0.59 Absolute Eosinophils (0.0-0.7) 10^3/uL 0.00 Absolute Basophils (0.0-0.2) 10^3/uL 0.03 VBG pH (7.31-7.41) 7.48 H VBG pCO2 (41-51) mmHg 38 L VBG pO2 mmHg 24 VBG HCO3 (23-28) mmol/L 29 H VBG Total CO2 (24-29) mmol/L 25 VBG O2 Saturation % 50 VBG Base Excess (-2-3) mmol/L 5 H VBG Lactate (<or=2.0) mmol/L Sodium (136-145) mmol/L 125 L Potassium (3.5-5.1) mmol/L 3.7 Chloride (98-107) mmol/L 84 L Carbon Dioxide (21.0-32.0) mmol/L 28.7 Anion Gap (3-11) mmol/L 12.3 H BUN (7-18) mg/dL 21 H Creatinine (0.55-1.02) mg/dL 1.6 H Est GFR (CKD-EPI 2020) (mL/min/1.73m2) 35.57 Glucose (74-106) mg/dL 715 H* Calcium (8.5-10.1) mg/dL 9.6 Magnesium (1.8-2.4) mg/dL 1.5 L Total Bilirubin (0.2-1.0) mg/dL 3.1 H AST (15-37) U/L 19 ALT (14-59) U/L 22 Alkaline Phosphatase (46-116) U/L 153 H Total Protein (6.4-8.2) g/dL 8.4 H Albumin (3.4-5.0) g/dL 4.4 Urine Color (Yellow) Yellow Urine Clarity (Clear) Sl Cloudy Urine pH (5-8) 7.0 Ur Specific [place] (1.005-1.025) 1.015 Urine Protein (Neg-Trace) mg/dL Negative Urine Ketones (Negative) mg/dL Negative Urine Blood (Negative) Trace-lysed H Urine Nitrite (Negative) Negative Urine Bilirubin (Negative) Negative Urine Urobilinogen (Up to 0.2) mg/dL 1.0 H Ur Leukocyte Esterase (Negative) Moderate H Urine RBC Not Applicable Urine WBC (0-5) HPF >50 H Ur Epithelial Cells Not Applicable Urine Crystals Not Applicable Urine Bacteria (Negative) HPF Packed Urine Mucus Not Applicable Ur Culture Indicated? Yes Urine Glucose (Negative) mg/dL >=1000 H COVID-19 Source Nasopharynx SARS-CoV-2 (PCR) (Negative) Negative Influenza Type A (PCR) (Negative) Negative Influenza Type B (PCR) (Negative) Negative RSV (PCR) (Negative) Negative Range/Units 04/15/25 04/15/25 17:10 19:37 WBC (4.4-10.8) 10^3/uL RBC (3.93-5.22) 10^6/uL Hgb (11.2-15.7) g/dL Hct (36.0-46.0) % MCV (80-95) fL MCH (27.0-33.0) pg MCHC (32.0-36.0) % RDW (11.7-14.6) % Plt Count (130-400) 10^3/uL MPV (8.0-11.0) fL Immature Gran % % Neutrophils % % Lymphocytes % % Monocytes % % Eosinophils % % Basophils % % Nucleated RBC % (0.0-0.3) % Absolute Neutrophils (1.2-6.7) 10^3/uL Absolute Lymphocytes (1.2-3.4) 10^3/uL Absolute Monocytes (0.1-0.8) 10^3/uL Absolute Eosinophils (0.0-0.7) 10^3/uL Absolute Basophils (0.0-0.2) 10^3/uL VBG pH (7.31-7.41) VBG pCO2 (41-51) mmHg VBG pO2 mmHg VBG HCO3 (23-28) mmol/L VBG Total CO2 (24-29) mmol/L VBG O2 Saturation % VBG Base Excess (-2-3) mmol/L VBG Lactate (<or=2.0) mmol/L 2.7 H* Sodium (136-145) mmol/L 133 L Potassium (3.5-5.1) mmol/L 3.9 Chloride (98-107) mmol/L 97 L Carbon Dioxide (21.0-32.0) mmol/L 28.8 Anion Gap (3-11) mmol/L 7.2 BUN (7-18) mg/dL 18 Creatinine (0.55-1.02) mg/dL 1.2 H Est GFR (CKD-EPI 2020) (mL/min/1.73m2) 50.23 Glucose (74-106) mg/dL 405 H Calcium (8.5-10.1) mg/dL 8.7 Magnesium (1.8-2.4) mg/dL Total Bilirubin (0.2-1.0) mg/dL AST (15-37) U/L ALT (14-59) U/L Alkaline Phosphatase (46-116) U/L Total Protein (6.4-8.2) g/dL Albumin (3.4-5.0) g/dL Urine Color (Yellow) Urine Clarity (Clear) Urine pH (5-8) Ur Specific [place] (1.005-1.025) Urine Protein (Neg-Trace) mg/dL Urine Ketones (Negative) mg/dL Urine Blood (Negative) Urine Nitrite (Negative) Urine Bilirubin (Negative) Urine Urobilinogen (Up to 0.2) mg/dL Ur Leukocyte Esterase (Negative) Urine RBC Urine WBC (0-5) HPF Ur Epithelial Cells Urine Crystals Urine Bacteria (Negative) HPF Urine Mucus Ur Culture Indicated? Urine Glucose (Negative) mg/dL COVID-19 Source SARS-CoV-2 (PCR) (Negative) Influenza Type A (PCR) (Negative) Influenza Type B (PCR) (Negative) RSV (PCR) (Negative) Medical Decision Making Laboratory Studies Initial blood sugar 765. VBG shows no diabetic ketoacidosis. Urinalysis: >50 WBCs, consistent with UTI. No leukocytosis. Lactate 2.7, no septic shock. BMP to be checked in 2 hours. Imaging Chest x-ray: no infiltrate. Testing Flu, COVID-19, and RSV tests negative. Initial Assessment: 65-year-old female with type 2 diabetes, retinopathy, chronic kidney disease, presenting with weakness, dizziness, cough, cold symptoms, nausea, vomiting, and urinary frequency. Blood sugar reading high at 765. Differential Diagnosis: - Hyperglycemia: Suspected significant hyperglycemia, less likely HHS. No serum osmolality lab to confirm. - Diabetic Ketoacidosis: VBG does not show evidence. - Urinary Tract Infection: Urinalysis >50 WBCs, consistent with UTI. No leukocytosis. ED Course: - Blood sugar 765. - VBG: No evidence of diabetic ketoacidosis. - Urinalysis: >50 WBCs, no ketones. - Lactate 2.7: No evidence of septic shock. - 1 L NS followed by 250 mL/hr saline. - 40 mEq potassium p.o. - 10 mEq potassium i.v. - Insulin drip initiated. - BMP in 2 hours. - Chest x-ray: No obvious infiltrate. - Flu, COVID, RSV tests negative. - Hemodynamically stable. Final Assessment: Patient with severe hyperglycemia, nausea, vomiting, and UTI. Blood sugar decreased after interventions. Admitted for further evaluation and observation. Clinical Impression: - Severe hyperglycemia. - Nausea and vomiting. - Urinary tract infection (UTI). - Health Maintenance: Influenza, COVID-19, and RSV tests negative. Disposition: - Admission: Admitted for further evaluation and observation. MDM Components Evaluation: - Number of Differential Diagnoses or Management Options: Hyperglycemia, Diabetic Ketoacidosis, Urinary Tract Infection. - Amount and Complexity of Data Reviewed: Blood sugar, VBG, urinalysis, lactate, BMP, chest x-ray, flu/COVID/RSV tests. - Risk of Complication and Morbidity or Mortality: Severe hyperglycemia, potential complications from UTI and chronic conditions. Quality:SDOH Health Related Social Needs: Health related social needs details dtr providing transportation Critical Care Time Critical Care Time Attestation: 45 minutes of critical care time secondary to acute hyperglycemia requiring insulin drip, urinary tract infection requiring diagnostic lab interpretation review of telemetry monitoring potassium supplementation recheck of labs diagnostic imaging interpretation review and ultimately admission to our facility PFSH All Active Problems (Updated 04/15/25 @ 23:19 by MARY Nevarez) Acute hyperglycemia (Acute) Type 2 diabetes mellitus (Chronic) HHNC (hyperglycemic hyperosmolar nonketotic coma) (Acute) UTI (urinary tract infection) (Acute) Foot ulcer due to secondary DM (Acute) Retinopathy (Acute) Amputated great toe (Acute) History of colon polyps (Acute) Abnormal finding on evaluation procedure (Acute) [place] (Acute) Itchy skin (Acute) Disorder of kidney and ureter, unspecified (Acute) GERD (gastroesophageal reflux disease) (Chronic) Posterior rhinorrhea (Acute) Post-menopausal bleeding (Acute) Tubular adenoma (Acute ~02/2021) Incomplete rectal prolapse (Acute) Vaginal atrophy (Acute) Gastroparesis (Acute) Chronic lower urinary tract infection (Acute) Short of breath on exertion (Acute) Asthma (Chronic) Osteomyelitis of ankle or foot, right, acute (Acute) CKD (chronic kidney disease) (Chronic) Anemia (Chronic) 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) Type II diabetes mellitus with complication, uncontrolled (Chronic) Neuropathic diabetic ulcer of foot (Acute) Cellulitis and abscess of foot (Acute) Closed nondisplaced transverse fracture of right patella with routine healing (Acute) Medical History Orthostatic hypotension Surgical History History of esophagogastroduodenoscopy (EGD) (~02/2021) History of colonoscopy (~02/2021) Family History Mother Diabetes Brother Diabetes Social History Smoking/Tobacco Use Status: Never Smoking risk assessment performed?: Yes Alcohol Intake: never Drug use: Daily Substance use type: marijuana Adopted: No Caregiver/Support person: No Foster care: No Household members: spouse Housing: house Number of Children: 4 number of grandchildren: 4 Pets and animals: Yes (2) Pets and animals: cat(s) and dog(s) Sexually active: Yes Do you think of yourself as: straight/heterosexual Current gender identity: female What is your relationship status?: How often do you talk on the phone with friends or family?: decline to answer How often do you get together with friends or relatives?: twice per week Do you belong to any clubs or organized social groups?: no Panel score (0-1 are the most socially isolated patients): 1 Yi/Orthodox: [employer] Seatbelt use: always Helmet use: Yes Drive intox 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
[2025-04-16] MEDS: MAGNESIUM SULFATE 1 GM/100 ML BAG IV_INF (00:24)
[2025-04-16] MEDS: Normal Saline 1,000 ML 125 ML IV (00:24)
[2025-04-16 03:46] VITALS: BP 158/97; PULSE 86; RESP 20; TEMP 36.8; O2SAT 98
[2025-04-16 05:08] LABS: HCT 33.7 % (36.0-46.0); MCH 30.4 pg (27.0-33.0); MCHC 34.7 % (32.0-36.0); MCV 88 fL (80-95); MPV 10.5 fL (8.0-11.0); Platelet Count 251 10^3/uL (130-400); RBC 3.85 10^6/uL (3.93-5.22); RDW 11.3 % (11.7-14.6); RDW-SD 36.2 fL; WBC 10.66 10^3/uL (4.4-10.8)
[2025-04-16 05:27] LABS: HGB 11.7 g/dL (11.2-15.7)
[2025-04-16 05:38] LABS: Magnesium 2.1 mg/dL (1.8-2.4)
[2025-04-16 05:46] LABS: Anion Gap 6.8 mmol/L (3-11); BUN 18 mg/dL (7-18); CO2 28.2 mmol/L (21.0-32.0); CREATININE 1.2 mg/dL (0.55-1.02); Calcium 8.7 mg/dL (8.5-10.1); Chloride 98 mmol/L (98-107); Estimated GFR 50.23 (mL/min/1.73m2); Glucose 331 mg/dL (74-106); Potassium 4.4 mmol/L (3.5-5.1); Sodium 133 mmol/L (136-145)
[2025-04-16 07:31] VITALS: BP 183/92; PULSE 90; RESP 12; TEMP 36.8; O2SAT 99
[2025-04-16] MEDS: Normal Saline Flush 10 ML SYR IVP (07:55)
[2025-04-16] MEDS: Enoxaparin 40 MG/0.4 ML SYR SC (07:56)
[2025-04-16] MEDS: Simvastatin 20 MG TAB 10 MG PO (07:56)
[2025-04-16] MEDS: Gabapentin 300 MG CAP PO (07:56)
[2025-04-16] MEDS: Insulin Glargine 300 UNITS/3 ML PEN 10 UNITS SC (07:56)
[2025-04-16] MEDS: Insulin Aspart 300 UNITS/3 ML PEN SC ×2 (07:57→12:16)
[2025-04-16 10:49] LABS: Anion Gap 7.5 mmol/L (3-11); BUN 18 mg/dL (7-18); CO2 28.5 mmol/L (21.0-32.0); CREATININE 1.2 mg/dL (0.55-1.02); Calcium 8.7 mg/dL (8.5-10.1); Chloride 96 mmol/L (98-107); Estimated GFR 50.23 (mL/min/1.73m2); Glucose 368 mg/dL (74-106); Potassium 3.9 mmol/L (3.5-5.1); Sodium 132 mmol/L (136-145)
[2025-04-16 11:29] VITALS: BP 148/84; PULSE 79; RESP 16; TEMP 37.2; O2SAT 99
--- NOTE | 2025-04-16 12:33 | W.PM.DS.N ---
Date of service: 04/16/25 Time of Service: 12:33 DS: Diagnosis Discharge Diagnosis (1) HHNC (hyperglycemic hyperosmolar nonketotic coma): Status: Acute (2) Hypomagnesemia: Status: Acute (3) UTI (urinary tract infection): Status: Acute (4) Type 2 diabetes mellitus: Status: Chronic (5) CKD (chronic kidney disease): Status: Chronic Discharge Plan Disposition Patient Disposition: Home Condition: Good Discharge Details Reason For Visit: HHNC, UTI Admit Date/Time: 04/15/25 20:38 Admit Provider: Dionte Lomeli Attending Provider: Dionte Lomeli Primary Care Provider: Sherlyn Pyle Hospital Course Hospital Course: 65 yo F with type 2 vs 1.5 diabetes, insulin dependant, previously well controlled with A1c around 7%, who presented with hyperglycemia after her DEXCOM malfunctioned and continuously read low despite consuming sugary foods. She was confused with glucose in the 700s on presentation. Her lactate was mildly elevated to 2.7 but she was not acidotic. Her mental status normalized and her lactate normalized with IV fluids. She was eating and drinking normally at the time of discharge. We reviewed need to use fingerstick glucometer if her CGM numbers don't make sense or she feels unwell. She has this equipment. She had >50 WBC and >1000 glucose in her urine and was given a dose of ceftriaxone. However she never had any urinary symptoms so antibiotics were not continued. There is a culture pending, but I would only treat if urinary symptoms develop. Her CKD was at baseline with Cr 1.2. She would benefit from BERNARD/ARB and even SGLT2i therapy especially if any albuminuria. PCP Follow up: Follow up 1-2 weeks on diabetes care. Recheck BMP and Mg prior to visit, also urine microalbumin/creatinine A1c pending at time of discharge. C-peptide was previously ordered but never drawn. Doing this with above labs would help understand her residual beta-cell function. Home Meds and New Rx's Prescriptions: New magnesium oxide 500 mg capsule 500 mg PO DAILY Qty: 90 0RF Continued (DME) Aerochamber MV Spacer See Rx Instructions .Route Rx Instructions: As directed Humalog U-100 Insulin 100 unit/mL cartridge 4 unit PO PRN PRN Patient Comments: sliding scale Rx Instructions: Sliding scale metformin 500 mg tablet 500 mg PO DAILY cinnamon bark [Cinnamon] 500 mg capsule 1,000 mg PO DAILY kflzcoyymvqe-Iz-nvhe-minerals 18-0.4 mg tablet 1 tab PO DAILY fluticasone propionate 50 mcg/actuation spray,suspension 1 spray intranasal DAILY Rx Instructions: administer into each nostril albuterol sulfate [ProAir HFA] 90 mcg/actuation HFA aerosol inhaler 1 inh inhalation ONCE fluticasone propionate [Flovent HFA] 110 mcg/actuation HFA aerosol inhaler 1 puff inhalation BID insulin glargine [Lantus Solostar U-100 Insulin] 100 unit/mL (3 mL) insulin pen 25 unit Sub-Q HS Qty: 15 2RF (DME) FreeStyle Lara 2 [place] Misc See Rx Instructions .Route Qty: 1 0RF Rx Instructions: As directed, to keep HbA1c less than 6.5% (DME) FreeStyle Lara 2 Sensor Kit See Rx Instructions .Route Qty: 3 6RF Rx Instructions: to keep HbA1c less than 6.5% (DME) pen needle, diabetic [TechLITE Pen Needle] 32 gauge x 5/32 needle See Rx Instructions .Route Qty: 400 3RF Rx Instructions: As directed, QID simvastatin 20 mg tablet 10 mg PO DAILY Qty: 45 3RF gabapentin 300 MG capsule 1 cap PO BID Discharge Instructions Instructions: Hyperosmolar hyperglycemic state Additional Instructions: resume your regular insulin dosing Remember to use your regular glucometer if the continuous monitor levels don't make sense or if you feel unwell Take the magnesium supplement daily, any OTC version is okay Activity:: Activity as Tolerated Equipment/Supplies:: No Equipment Needed Diet:: Carb Counting Discharge Orders Discharge Orders: Discharge Order (Routine); Ordered 04/16/25 Ordered By: Luis Felipe Blackwell DS: Summary Time Spent with Patient providing and/or coordinating discharge services: Greater than 30 minutes Status at Discharge Functional status at discharge: independent ambulation Overall status at discharge: patient is back to baseline Mental Status: mental status grossly normal Speech and Movement: speech and movement normal Mood: congruent mood Affect: normal affect Quality:SDOH Health Related Social Needs: Health related social needs details dtr providing transportation Exam Narrative Exam Narrative: General Appearance: Alert and oriented, sitting up eating, NAD HEENT: moist mucous membranes. Respiratory: Lungs clear to auscultation, normal effort Gastrointestinal: soft, no abdominal tenderness. Skin: Warm and dry, no rash. Neurological: Non focal, no tremor, nl speech and coordination. Psych Mental Status: mental status grossly normal Speech and Movement: speech and movement normal Mood: congruent mood Affect: normal affect DS: Data Vitals/I&O Vitals and I&O: Vital Signs Temperature 37.2 C 04/16/25 11:29 Temperature Source Temporal Artery Scan 04/16/25 11:29 Pulse 79 04/16/25 11:29 Pulse 91 H 04/15/25 22:10 Respiratory Rate 16 04/16/25 11:29 Respiratory Effort Normal 04/15/25 22:59 Respiratory Depth Normal 04/15/25 22:59 Respiratory Pattern Normal 04/15/25 22:59 Blood Pressure 148/84 H 04/16/25 11:29 Blood Pressure Mean 105 04/16/25 11:29 Blood Pressure Position Sitting 04/15/25 15:36 Pulse Oximetry 99 04/16/25 11:29 Oxygen Delivery Method Room Air 04/16/25 11:29 Oxygen Flow Rate 0 04/16/25 11:29 Pain Level 0 04/16/25 11:29 Comment RN notified 04/16/25 11:29 Intake & Output 04/15/25 04/16/25 04/16/25 23:59 11:59 23:59 Intake Total 1277.151 / 1277.151 120 / 120 Output Total 200 / 200 Balance 1277.151 / 1277.151 -80 / -80 Weight 54.431 kg Intake: IV 1277.151 / 1277.151 Oral 120 / 120 Output: Urine 200 / 200 Other: Urine Color Yellow Urine Appearance Clear Comment pt states they urinated Pt toileted and voided ,not measured as pt flushed. Data Completed and Pending Labs on day of discharge: Labs from last 24 hours 04/16/25 04/16/25 04/16/25 Unknown 16:28 10:23 WBC RBC Hgb Hct MCV MCH MCHC RDW Plt Count MPV Immature Gran % Neutrophils % Lymphocytes % Monocytes % Eosinophils % Basophils % Nucleated RBC % Absolute Neutrophils Absolute Lymphocytes Absolute Monocytes Absolute Eosinophils Absolute Basophils VBG pH VBG pCO2 VBG pO2 VBG HCO3 VBG Total CO2 VBG O2 Saturation VBG Base Excess VBG Lactate 2.0 Sodium Cancelled 132 L Potassium Cancelled 3.9 Chloride Cancelled 96 L Carbon Dioxide Cancelled 28.5 Anion Gap Cancelled 7.5 BUN Cancelled 18 Creatinine Cancelled 1.2 H Est GFR (CKD-EPI 2020) Cancelled 50.23 Glucose Cancelled 368 H Calcium Cancelled 8.7 Magnesium Total Bilirubin AST ALT Alkaline Phosphatase Total Protein Albumin Urine Color Urine Clarity Urine pH Ur Specific [place] Urine Protein Urine Ketones Urine Blood Urine Nitrite Urine Bilirubin Urine Urobilinogen Ur Leukocyte Esterase Urine RBC Urine WBC Ur Epithelial Cells Urine Crystals Urine Bacteria Urine Mucus Ur Culture Indicated? Urine Glucose COVID-19 Source SARS-CoV-2 (PCR) Influenza Type A (PCR) Influenza Type B (PCR) RSV (PCR) Add-On Test Request Pending 04/16/25 04/15/25 04/15/25 04:27 22:50 19:37 WBC 10.66 RBC 3.85 L Hgb 11.7 D Hct 33.7 L MCV 88 MCH 30.4 MCHC 34.7 RDW 11.3 L Plt Count 251 MPV 10.5 Immature Gran % Neutrophils % Lymphocytes % Monocytes % Eosinophils % Basophils % Nucleated RBC % Absolute Neutrophils Absolute Lymphocytes Absolute Monocytes Absolute Eosinophils Absolute Basophils VBG pH VBG pCO2 VBG pO2 VBG HCO3 VBG Total CO2 VBG O2 Saturation VBG Base Excess VBG Lactate Sodium 133 L 135 L 133 L Potassium 4.4 4.3 3.9 Chloride 98 99 97 L Carbon Dioxide 28.2 29.6 28.8 Anion Gap 6.8 6.4 7.2 BUN 18 18 18 Creatinine 1.2 H 1.2 H 1.2 H Est GFR (CKD-EPI 2020) 50.23 50.23 50.23 Glucose 331 H 263 H 405 H Calcium 8.7 9.1 8.7 Magnesium 2.1 Total Bilirubin AST ALT Alkaline Phosphatase Total Protein Albumin Urine Color Urine Clarity Urine pH Ur Specific [place] Urine Protein Urine Ketones Urine Blood Urine Nitrite Urine Bilirubin Urine Urobilinogen Ur Leukocyte Esterase Urine RBC Urine WBC Ur Epithelial Cells Urine Crystals Urine Bacteria Urine Mucus Ur Culture Indicated? Urine Glucose COVID-19 Source SARS-CoV-2 (PCR) Influenza Type A (PCR) Influenza Type B (PCR) RSV (PCR) Add-On Test Request 04/15/25 04/15/25 04/15/25 17:10 16:31 16:04 WBC RBC Hgb Hct MCV MCH MCHC RDW Plt Count MPV Immature Gran % Neutrophils % Lymphocytes % Monocytes % Eosinophils % Basophils % Nucleated RBC % Absolute Neutrophils Absolute Lymphocytes Absolute Monocytes Absolute Eosinophils Absolute Basophils VBG pH VBG pCO2 VBG pO2 VBG HCO3 VBG Total CO2 VBG O2 Saturation VBG Base Excess VBG Lactate 2.7 H* Sodium Potassium Chloride Carbon Dioxide Anion Gap BUN Creatinine Est GFR (CKD-EPI 2020) Glucose Calcium Magnesium Total Bilirubin AST ALT Alkaline Phosphatase Total Protein Albumin Urine Color Yellow Urine Clarity Sl Cloudy Urine pH 7.0 Ur Specific [place] 1.015 Urine Protein Negative Urine Ketones Negative Urine Blood Trace-lysed H Urine Nitrite Negative Urine Bilirubin Negative Urine Urobilinogen 1.0 H Ur Leukocyte Esterase Moderate H Urine RBC Not Applicable Urine WBC >50 H Ur Epithelial Cells Not Applicable Urine Crystals Not Applicable Urine Bacteria Packed Urine Mucus Not Applicable Ur Culture Indicated? Yes Urine Glucose >=1000 H COVID-19 Source Nasopharynx SARS-CoV-2 (PCR) Negative Influenza Type A (PCR) Negative Influenza Type B (PCR) Negative RSV (PCR) Negative Add-On Test Request 04/15/25 15:45 WBC 9.46 RBC 4.48 Hgb 13.7 Hct 38.6 MCV 86 MCH 30.6 MCHC 35.5 RDW 11.1 L Plt Count 310 MPV 10.2 Immature Gran % 0.2 Neutrophils % 78.1 Lymphocytes % 15.2 Monocytes % 6.2 Eosinophils % 0.0 Basophils % 0.3 Nucleated RBC % 0.0 Absolute Neutrophils 7.38 H Absolute Lymphocytes 1.44 Absolute Monocytes 0.59 Absolute Eosinophils 0.00 Absolute Basophils 0.03 VBG pH 7.48 H VBG pCO2 38 L VBG pO2 24 VBG HCO3 29 H VBG Total CO2 25 VBG O2 Saturation 50 VBG Base Excess 5 H VBG Lactate Sodium 125 L Potassium 3.7 Chloride 84 L Carbon Dioxide 28.7 Anion Gap 12.3 H BUN 21 H Creatinine 1.6 H Est GFR (CKD-EPI 2020) 35.57 Glucose 715 H* Calcium 9.6 Magnesium 1.5 L Total Bilirubin 3.1 H AST 19 ALT 22 Alkaline Phosphatase 153 H Total Protein 8.4 H Albumin 4.4 Urine Color Urine Clarity Urine pH Ur Specific [place] Urine Protein Urine Ketones Urine Blood Urine Nitrite Urine Bilirubin Urine Urobilinogen Ur Leukocyte Esterase Urine RBC Urine WBC Ur Epithelial Cells Urine Crystals Urine Bacteria Urine Mucus Ur Culture Indicated? Urine Glucose COVID-19 Source SARS-CoV-2 (PCR) Influenza Type A (PCR) Influenza Type B (PCR) RSV (PCR) Add-On Test Request 04/15/25 17:35 Blood Blood Culture - Pending 04/15/25 17:10 Blood Blood Culture - Pending Preliminary micro results at discharge 04/15/25 16:31 Urine - Reflex from Ua Urine Culture - Preliminary Escherichia coli 04/15/25 17:35 Blood Blood Culture - Pending 04/15/25 17:10 Blood Blood Culture - Pending [facility] All Active Problems (Updated 04/16/25 @ 12:31 by Luis Felipe Blackwell) Hypomagnesemia (Acute) Acute hyperglycemia (Acute) Type 2 diabetes mellitus (Chronic) HHNC (hyperglycemic hyperosmolar nonketotic coma) (Acute) UTI (urinary tract infection) (Acute) Foot ulcer due to secondary DM (Acute) Retinopathy (Acute) Amputated great toe (Acute) History of colon polyps (Acute) Abnormal finding on evaluation procedure (Acute) [place] (Acute) Itchy skin (Acute) Disorder of kidney and ureter, unspecified (Acute) GERD (gastroesophageal reflux disease) (Chronic) Posterior rhinorrhea (Acute) Post-menopausal bleeding (Acute) Tubular adenoma (Acute ~02/2021) Incomplete rectal prolapse (Acute) Vaginal atrophy (Acute) Gastroparesis (Acute) Chronic lower urinary tract infection (Acute) Short of breath on exertion (Acute) Asthma (Chronic) Osteomyelitis of ankle or foot, right, acute (Acute) Anemia (Chronic) CKD (chronic kidney disease) (Chronic) Neuropathic diabetic ulcer of foot (Acute) Type II diabetes mellitus with complication, uncontrolled (Chronic) Cellulitis and abscess of foot (Acute) assisted current use of insulin (Chronic) Closed nondisplaced transverse fracture of right patella with routine healing (Acute) Medical History Orthostatic hypotension Surgical History History of esophagogastroduodenoscopy (EGD) (~02/2021) History of colonoscopy (~02/2021) Family History Mother Diabetes Brother Diabetes Social History Smoking/Tobacco Use Status: Never Smoking risk assessment performed?: Yes Alcohol Intake: never Drug use: Daily Substance use type: marijuana Adopted: No Caregiver/Support person: No Foster care: No Household members: spouse Housing: house Number of Children: 4 number of grandchildren: 4 Pets and animals: Yes (2) Pets and animals: cat(s) and dog(s) Sexually active: Yes Do you think of yourself as: straight/heterosexual Current gender identity: female What is your relationship status?: How often do you talk on the phone with friends or family?: decline to answer How often do you get together with friends or relatives?: twice per week Do you belong to any clubs or organized social groups?: no Panel score (0-1 are the most socially isolated patients): 1 Yi/Scientologist: Sikh Seatbelt use: always Helmet use: Yes Drive intox or ride w/intox buggy driver: No Do you feel safe at home: Yes Do you feel safe in your relationship?: Yes History History 4 Para 3 Hx # Term Pregnancies 3 Multiple births Hx # Pregnancies Ectopic pregnancies AB induced Hx Number of Living Children 3 AB spontaneous Time Spent with Patient Time Spent with Patient: <45 minutes Time was spent: preparing to see the patient(eg.review tests), obtaining and/or reviewing separately otained hiistory, ordering medications,tests, procedures, referring, communicating with other health memory care program director, indepentently interpreting results, counseling the patient and care coordination
[2025-04-16 13:12] LABS: Lab Add On Test DONE
[2025-04-16 13:29] LABS: Hemoglobin A1C 9.2 % (<5.7)
--- NOTE | 2025-04-16 17:20 | CMDISCH_ITS ---
Date of service: 04/16/25 Time of Service: 13:00 LACE Index Scoring Tool Questions: Length of Stay (in days): 1 (hyperglycemic heperosmolar nonketotic coma and UTI) Was the patient admitted via the E.D.?: Yes Comorbidities: Diabetes w/o Complication, Chronic Pulmonary Disease and Mild Liver/Renal Disease E.D. Visits: 2 Answers: Total Score: 11 Risk of Readmission: High Risk Care Management Discharge Plan Reason for Hospitalization: HHNC (hyperglycemic hyperosmolar nonketotic coma) - wears a Dexcom that was incorrectly reading low BS, Margaret corrected with high sugar intake resulting in high BS (700) and confusion. Margaret required IV hydration and insulin infusion. She was feeling much better and requested discharge Discharge Plan: Joann was discharged home earlier today with no new services. She is independent at baseline, and was strongly encouraged to use her fingerstick glucometer to check her levels if she does not seem to be responding to tx according to her dexcom. Margaret will f/u with her PCP and continue per her plan of care. She was transported in a private vehicle. Patient/Family Education Needs: Review of discharge instructions, activity, limitations, and discuss Ask me 3. SDOH Health Related Social Needs: Health related social needs details dtr providing pitt sportation
== END 2025-04-16 14:26 | disposition home or self-care (01) | DRG 638 ==
LOC: ER 20:41 → MS 22:26
PROVIDERS: Admitting Provider Family Medicine; Emergency Provider Physician Assistant; PCP Nurse Practitioner Family; Responsible Provider Family Medicine; Visit Provider Family Medicine
DX: E11.00 Type 2 diabetes mellitus with hyperosmolarity without nonketotic hyperglycemic-hyperosmolar coma (NKHHC); N39.0 Urinary tract infection, site not specified; E83.42 Hypomagnesemia; E11.22 Type 2 diabetes mellitus with diabetic chronic kidney disease; N18.31 Chronic kidney disease, stage 3a; Z79.4 Long term (current) use of insulin; E11.43 Type 2 diabetes mellitus with diabetic autonomic (poly)neuropathy; K31.84 Gastroparesis; Z79.84 Long term (current) use of oral hypoglycemic drugs; J45.909 Unspecified asthma, uncomplicated; R53.1 Weakness; R42 Dizziness and giddiness; R05.9 Cough, unspecified
CPT/HCPCS: 00123; 36415; 36416; 80048; 80053; 82805; 82962; 85027; 87040; 87077; 87637; 93005; 96361; 96365; 96366; 96367; 99291; J1650; 71046; 81003; 81015; 83036; 83605; 83735; 85025; 87086; 87186; 93010; 99223; 99239; J0696; J1815; J3475; J3480

== ENCOUNTER 2025-08-31 08:59 | Outpatient (CLI) | payer MEDICARE, MEDICAID, SELFPAY ==
[2025-08-31 10:36] LABS: ALT 19 U/L (14-59); AST 12 U/L (15-37); Albumin 3.6 g/dL (3.4-5.0); Alkaline Phosphatase 98 U/L (46-116); Anion Gap 6.5 mmol/L (3-11); BUN 25 mg/dL (7-18); Bilirubin, Total 1.1 mg/dL (0.2-1.0); CO2 31.5 mmol/L (21.0-32.0); Calcium 8.9 mg/dL (8.5-10.1); Calculated LDL 72 mg/dL (<100); Chloride 102 mmol/L (98-107); Cholesterol 168 mg/dL (<200); Estimated GFR 55.76 (mL/min/1.73m2); Glucose 143 mg/dL (74-106); HDL Cholesterol 88 mg/dL (>or=50); Magnesium 1.5 mg/dL (1.8-2.4); Potassium 4.3 mmol/L (3.5-5.1); Sodium 140 mmol/L (136-145); Total Protein 7.2 g/dL (6.4-8.2); Triglyceride 43 mg/dL (<150)
[2025-08-31 11:52] LABS: Creatine Kinase 71 U/L (26-192)
== END 2025-08-31 09:00 | disposition home or self-care (01) ==
LOC: LBO 09:01
PROVIDERS: PCP Nurse Practitioner Family; Visit Provider Nurse Practitioner Family
DX: E11.65 Type 2 diabetes mellitus with hyperglycemia (principal); E11.8 Type 2 diabetes mellitus with unspecified complications; Z79.4 Long term (current) use of insulin; N18.31 Chronic kidney disease, stage 3a; E11.22 Type 2 diabetes mellitus with diabetic chronic kidney disease; R79.0 Abnormal level of blood mineral
CPT/HCPCS: 36415; 80053; 80061; 82550; 83735; 84681